=== PATIENT | female | born 1955 | race Caucasian/White ===

== ENCOUNTER 2023-05-22 09:46 | Outpatient (OUT) | payer MEDICARE, OTHER, SELFPAY ==
--- NOTE | 2023-05-22 09:55 | MM_ITS ---
Patient Name: JOHANNY CRISTINA MR#: [id number] : 1955 Exam Date: 05/22/2023 Ordering Doctor: DR SUKHJINDER QUINTERO . RADIOLOGY REPORT PROCEDURE: MM TOMOSYNTHESIS SCREENING BI COMPARISON: MG MAMM SCREEN 3D NÉSTOR CAD, 05/17/2021. MG MAMM SCREEN 3D NÉSTOR CAD, 05/21/2022. INDICATIONS: screening Calculator Name NCI Breast Cancer Risk Assessment Tool 5 Year Breast Cancer Risk 1.20% Lifetime Breast Cancer Risk 3.90% Personal Breast Cancer No Personal Ovarian Cancer No Treatments None Family Cancers Uncle-paternal with stomach cancer at age 74; Uncle-paternal with thyroid cancer at age 78; Grandfather-paternal with thyroid cancer at age 71; Uncle-maternal with leukemia cancer at age 65. LOCATION: [facility] BREAST COMPOSITION: Scattered areas fibroglandular density. FINDINGS: DIAGNOSTIC CATEGORY 1--NEGATIVE. NO CHANGE FROM COMPARISON ASSESSMENT. Scattered benign-appearing calcifications are present. RIGHT BREAST: No significant suspicious finding. LEFT BREAST: No significant suspicious finding. RECOMMENDATIONS: ROUTINE MAMMOGRAM AND CLINICAL EVALUATION IN 12 MONTHS. PLEASE NOTE: A NORMAL MAMMOGRAM DOES NOT EXCLUDE THE POSSIBILITY OF BREAST CANCER. A CLINICALLY SUSPICIOUS PALPABLE LUMP SHOULD BE BIOPSIED. Dictated by: Rommel Tay MD on 05/22/2023 at 11:09 Approved by: Rommel Tay MD on 05/22/2023 at 11:12
== END 2023-05-22 09:47 | disposition home or self-care (01) ==
LOC: MAMMO 09:46
PROVIDERS: PCP Family Medicine; Visit Provider Family Medicine
DX: Z12.31 Encounter for screening mammogram for malignant neoplasm of breast (principal); Z80.0 Family history of malignant neoplasm of digestive organs; Z80.8 Family history of malignant neoplasm of other organs or systems; Z80.6 Family history of leukemia
CPT/HCPCS: 77063; 77067

== ENCOUNTER 2023-05-31 06:15 | Outpatient (OUT) | payer MEDICARE, OTHER, SELFPAY ==
--- OUTSIDE RECORDS SUMMARY | 2023-05-31 06:20 | XMS_ITS | CCD ---
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 Wrecking Mechanic Name Role Phone PHYSICIAN, DEFAULT Unavailable Unavailable PHYSICIAN, DEFAULT Unavailable Unavailable SUKHJINDER QUINTERO Unavailable Unavailable HOY ., DR SLAUGHTER Admitting Unavailable HOY ., DR SLAUGHTER Attending Unavailable HOY ., DR SLAUGHTER Primary Care Unavailable HOY ., DR SLAUGHTER Consulting Unavailable WEST, DR STANISLAW Soria Consulting Unavailable HOY ., DR SLAUGHTER Admitting Unavailable HOY ., DR SLAUGHTER Attending Unavailable HOY ., DR SLAUGHTER Primary Care Unavailable HOY ., DR SLAUGHTER Consulting Unavailable WEST, DR STANISLAW Soria Consulting Unavailable HOY ., DR SLAUGHTER Primary Care Unavailable HOY ., DR SLAUGHTER Admitting Unavailable HOY ., DR SLAUGHTER Attending Unavailable HOY ., DR SLAUGHTER Consulting Unavailable ELTAHAWY, EHAB Attending Unavailable [place]HAWKhai, EHAB Attending Unavailable Allergies Allergy Classification Reported Allergen(s) Allergy Type Date of Onset Reaction(s) Facility (2 sources) Vigabatrin Drug Allergy 0 [facility] Repository (1 source) atorvastatin; Translations: [ATORVASTATIN] Drug Allergy 6 [facility] Rep[facility] (1 source) Metoprolol; Translations: [METOPROLOL] Drug Allergy 6 [facility] Rep[facility] (1 source) BUTALBITAL-ASPIR IN-CAFFEINE; Translations: [BUTALBITAL-ASPI RIN-CAFFEINE] Propensity to adverse reactions to drug (disorder) 2 [facility] Repository (1 source) CODEINE-BUTALBIT AL-ASA-CAFF; Translations: [CODEINE-BUTALBI VRV-QIN-TUUT] Propensity to adverse reactions to drug (disorder) 5 [facility] Problems Active Problems Problem Classification Problem Date Documented Date Episodic/Chronic Coronary atherosclerosis and other heart disease (2 sources) Atherosclerotic heart disease of red devil coronary artery without angina pectoris; Translations: [Atherosclerotic heart disease of red devil coronary artery without angina pectoris] Onset: 12-25-2022 Chronic Disorders of lipid metabolism (4 sources) Hyperlipidemia, unspecified; Translations: [HYPERLIPIDEMIA UNSPECIFIED] Onset: 02-12-2022 Chronic Essential hypertension (2 sources) Essential (primary) hypertension; Translations: [Essential (primary) hypertension] Onset: 02-08-2022 Chronic Menopausal disorders (4 sources) Other primary ovarian failure; Translations: [OTHER PRIMARY OVARIAN FAILURE] Onset: 02-22-2022 Chronic Nutritional deficiencies (1 source) Vitamin D deficiency, unspecified; Translations: [VITAMIN D DEFICIENCY UNSPECIFIED] Onset: 02-19-2022 Chronic Other bone disease and musculoskeletal deformities (1 source) Other specified disorders of bone density and structure, unspecified site; Translations: [OT D/O BONE DEN STRUCT UNS SITE] Onset: 02-28-2022 Episodic Other nutritional; endocrine; and metabolic disorders (1 source) Obesity, unspecified; Translations: [OBESITY UNSPECIFIED] Onset: 02-19-2022 Chronic Other screening for suspected conditions (not mental disorders or infectious disease) (5 sources) Encounter for screening mammogram for malignant neoplasm of breast; Translations: [Encounter for screening for malignant neoplasm of colon] Onset: 02-19-2022 Episodic Residual codes; unclassified (1 source) Family history of malignant neoplasm of digestive organs; Translations: [FAM HX MALIG NEOPLASM DIGESTIV ORGN] Onset: 05-26-2022 Episodic Residual codes; unclassified (1 source) Family history of leukemia; Translations: [FAMILY HISTORY OF LEUKEMIA] Onset: 05-26-2022 Episodic Residual codes; unclassified (1 source) Family history of malignant neoplasm of other organs or systems; Translations: [FAM HX MALIG NEOPLASM OTH ORGN/SYS] Onset: 05-26-2022 Episodic Past or Other Problems Problem Classification Problem Date Documented Da te Episodic/Chronic Deficiency and other anemia (1 source) Iron deficiency anemia, unspecified; Translations: [IRON DEFICIENCY ANEMIA UNSPECIFIED] Onset: 02-19-2022 Episodic Diabetes mellitus without complication (1 source) Other abnormal glucose; Translations: [OTHER ABNORMAL GLUCOSE] Onset: 02-19-2022 Episodic Other aftercare (1 source) 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; Translations: [OTH SKILLED NURSING CURRENT DRUG THERAPY] Onset: 02-19-2022 Episodic Results Test Name Value Interpretation Reference Range Facility Office Visiton 12-25-2022 Follow-up visit [id number] Johanny Dalton 1955 F Date Provider Department Center 12/25/2022 Kimberli-ZAC KNIGHT [facility] Family History Problem Relation Age of Onset Stroke Mother Other Mother Aortic aneurysm Father Hyperlipidemia Brother Aortic aneurysm Brother Family Status - Relation Status Age at Mother Father Brother Level of Service:78898 ID OFFICE/OUTPATIENT ESTABLISHED LOW MDM 20-29 MIN Normal [facility] MG MAMM SCREEN 3D NÉSTOR CADon 05-21-2022 MG MAMM SCREEN 3D NÉSTOR CAD Patient: JOHANNY DALTON Exam Date: 05/21/2022 : 1955 Gender:F Ordering : DR SUKHJINDER QUINTERO . Admission #: [id number] Family : Order #: [id number] CLICK HERE TO VIEW EXAM RADIOLOGY REPORT PROCEDURE: MAMMOGRAM SCREENING 3D BILATERAL CAD COMPARISON: MG MAMM SCREEN NÉSTOR W CAD, 05/16/2020. MG MAMM SCREEN 3D NÉSTOR CAD, 05/17/2021. INDICATIONS: Screening mammography Calculator Name NCI Breast Cancer Risk Assessment Tool 5 Year Breast Cancer Risk 1.20% Lifetime Breast Cancer Risk 4.00% Personal Breast Cancer No Personal Ovarian Cancer No Treatments None Family Cancers Uncle-paternal with stomach cancer at age 74; Uncle-paternal with thyroid cancer at age 78; Grandfather-paternal with thyroid cancer at age 71; Uncle-maternal with leukemia cancer at age 65. LOCATION: [facility] BREAST COMPOSITION: Scattered areas fibroglandular density. FINDINGS: DIAGNOSTIC CATEGORY 1--NEGATIVE. NO CHANGE FROM COMPARISON ASSESSMENT. Scattered benign-appearing calcifications are present. RIGHT BREAST: No significant suspicious finding. LEFT BREAST: No significant suspicious finding. RECOMMENDATIONS: ROUTINE MAMMOGRAM AND CLINICAL EVALUATION IN 12 MONTHS. PLEASE NOTE: A NORMAL MAMMOGRAM DOES NOT EXCLUDE THE POSSIBILITY OF BREAST CANCER. A CLINICALLY SUSPICIOUS PALPABLE LUMP SHOULD BE BIOPSIED. Dictated by: Stanislaw Gonzalez MD on 05/21/2022 at 11:30 Approved by: Stanislaw Gonzalez MD on 05/21/2022 at 11:36 Normal [facility] XR DEXA BONE DENSITYon 02-22 XR DEXA BONE DENSITY EXAMINATION: XR DEX A BONE DENSITY, 02/22/2022 9:59 AM EST HISTORY: Primary ovarian failure COMPARISON: None. TECHNIQUE: Dual-energy X-ray absorptiometry (DEXA) bone density study performed for the axial skeleton. FINDINGS: Bone mineral density AP spine L2-L4 measures 0.993 g/sq cm. T score -1.7. WHO classification: Osteopenia Bone mineral density of the right femoral neck measures 0.82 g/sq cm. T score -1.6. WHO classification: Osteopenia IMPRESSION: Osteopenia. Moderate fracture risk Electronically authenticated by: STANISLAW GONZALEZ Date: 2022-02-22 10:20 Normal [facility] INSULINon 02-13-2022 Insulin 10.7 uIU/mL Normal 2.6-24.9 [facility] Comment on above: Performed By: #### I NSULIN ####[facility] [id number] [place] [address]Dr. Lindsay Varela BILIRUBIN CONJUGATED (DIRECT )on 02-12-2022 BILI, CONJUGATED 0.1 mg/dL Normal 0.0-0.2 [facility] Comment on above: Performed By: #### T SH, CMP, T4, FT3, DBIL, LIPID ####[facility] [id number] [place] [address]Dr. Lindsay Varela CBC AUTO DIFFon 02-12-2022 BASO # 0.0 103/ul Normal 0.0-0.1 [facility] Comment on above: Performed By: #### C BC #### [facility] [address] [address] [address] Lindsay Varela Basophils/100 WBC (Bld) 0.4 % Normal 0.2-2.0 [facility] Comment on above: Performed By: #### C BC #### [facility] [address] [place] [address] Dr. Lindsay Varela EO # 0.1 103/ul Normal 0.0-0.7 [facility] Comment on above: Performed By: #### C BC #### [facility] [address] [place] [address] Dr. Lindsay Varela Eosinophils/100 WBC (Bld) 2.3 % Normal 0.9-7.0 [facility] Comment on above: Performed By: #### C BC #### [facility] [address] [place] [address] Dr. Lindsay Varela Erythrocyte distribution width (RBC) [Ratio] 12.2 % Normal 11.0-15.0 [facility] Comment on above: Performed By: #### C BC #### [facility] [address] [place] [address] Dr. Lindsay Varela Hematocrit (Bld) [Volume fraction] 41.9 % Normal 36.0-48.0 [facility] Comment on above: Performed By: #### C BC #### [facility] [address] [place] [address] Dr. Lindsay Varela Hemoglobin (Bld) [Mass/Vol] 13.9 g/dL Normal 12.0-16.0 [facility] Comment on above: Performed By: #### C BC #### [facility] [address] [place] [address] Dr. Lindsay Varela IG # 0.01 10e3/ul Normal 0.00-0.03 [facility] Comment on above: Performed By: #### C BC #### [facility] [address] [place] [address] Dr. Lindsay Varela IG % 0.2 % Normal 0.0-0.5 [facility] Comment on above: Performed By: #### C BC #### [facility] [address] [place] [address] Dr. Lindsay Varela LYMPH # 1.4 103/ul Normal 1.2-3.8 [facility] Comment on above: Performed By: #### C BC #### [facility] [address] [place] [address] Dr. Lindsay Varela Lymphocytes/100 WBC (Bld) 29.2 % Normal 20.5-60.0 [facility] Comment on above: Performed By: #### C BC #### [facility] [address] [place] [address] Dr. Lindsay Varela MANUAL DIFF REQ NO Normal [facility] Comment on above: Performed By: #### C BC #### [facility] [address] [place] [address] Dr. Lindsay Varela MCH (RBC) [Entitic mass] 29.4 pg Normal 26.7-34.0 [facility] Comment on above: Performed By: #### C BC #### [facility] [address] [place] [address] Dr. Lindsay Varela MCHC (RBC) [Mass/Vol] 33.2 g/dL Normal 29.9-35.2 [facility] Comment on above: Performed By: #### C BC #### [facility] [address] [place] [address] Dr. Lindsay Varela MCV (RBC) [Entitic vol] 88.6 fL Normal 81.0-99.0 [facility] Comment on above: Performed By: #### C BC #### [facility] [address] [place] [address] Dr. Lindsay Varela MONO # 0.5 103/ul Normal 0.3-0.8 [facility] Comment on above: Performed By: #### C BC #### [facility] [address] [place] [address] Dr. Lindsay Varela Monocytes/100 WBC (Bld) 9.5 % Normal 1.7-12.0 [facility] Comment on above: Performed By: #### C BC #### [facility] [address] [place] [address] Dr. Lindsay Varela NEUT # 2.8 103/ul Normal 1.4-6.5 [facility] Comment on above: Performed By: #### C BC #### [facility] [address] [place] [address] Dr. Lindsay Varela Neutrophils/100 WBC (Bld) 58.4 % Normal 43.0-75.0 [facility] Comment on above: Performed By: #### C BC #### [facility] [address] [place] [address] Dr. Lindsay Varela Platelet mean volume (Bld) [Entitic vol] 9.7 fL Normal 9.5-13.5 [facility] Comment on above: Performed By: #### C BC #### [facility] [address] [address] [address] Lindsay Varela PLT 181 103/ul Normal 150-450 [facility] Comment on above: Performed By: #### C BC #### [facility] [address] [address] [address] Lindsay Varela RBC 4.73 106/ul Normal 4.20-5.40 [facility] Comment on above: Performed By: #### C BC #### [facility] [address] [address] [address] Lindsay Varela WBC 4.8 103/ul Normal 4.0-11.0 [facility] Comment on above: Performed By: #### C BC #### [facility] [address] [address] [address] Lindsay Varela FREE T3on 02-12-2022 FREE T3 2.78 pg/mlL Normal 2.18-3.98 [facility] Comment on above: Performed By: #### T SH, CMP, T4, FT3, DBIL, LIPID #### [facility] [address] [address] [address] Lindsay Varela GLYCOHEMOGLOBIN A1Con 2021 ADA RECOMMENDATION SEE BELOW Normal [facility] Comment on above: Result Comment: ADA RECOMMENDED LIMIT 4.0 - 6.0 ADA THERAPEUTIC TARGET < 7.0 ACTION SUGGESTED > 7.0 Performed By: #### A 1C ####[facility] [id number] [place] [address]Dr. Lindsay Varela Glucose [Mass/Vol] 105 mg/dL Normal [facility] Comment on above: Performed By: #### A 1C ####[facility] [id number] [place] [id number]. Lindsay Varela HbA1c (Bld) [Mass fraction] 5.3 % Normal 4.5-6.2 [facility] Comment on above: Performed By: #### A 1C ####[facility] [address] [place], [place] [address]IfDr. Lindsay Varela IRONon 02-12-2022 Iron [Mass/Vol] 71.0 ug/dL Normal 50.0-170.0 [facility] Comment on above: Performed By: #### V ITAD, IRON #### [facility] [address] [address] [address] Lindsay Varela LIPID PROFILEon 02-12-2022 CHOL-HDL RATIO NORM SEE BELOW Normal [facility] Comment on above: Result Comment: 3.3 - 4.4 LOW RISK 4.4 - 7.1 AVERAGE RISK 7.1 - 11.0 MODERATE RISK >11.0 HIGH RISK Performed By: #### T SH, CMP, T4, FT3, DBIL, LIPID #### [facility] [address] [place] [address] Dr. Lindsay Varela Cholesterol [Mass/Vol] 141 mg/dL Normal <=200 [facility] Comment on above: Performed By: #### T SH, CMP, T4, FT3, DBIL, LIPID #### [facility] [address] [address] [address] Lindsay Varela Cholesterol in HDL [Mass/Vol] 44 mg/dL Normal 40-60 [facility] Comment on above: Performed By: #### T SH, CMP, T4, FT3, DBIL, LIPID #### [facility] [address] [address] [address] Lindsay Varela Cholesterol in LDL [Mass/Vol] 77.0 mg/dL Normal [facility] Comment on above: Performed By: #### T SH, CMP, T4, FT3, DBIL, LIPID #### [facility] [address] [address] [address] Lindsay Varela Cholesterol.total/Cho lesterol in HDL [Mass ratio] 3.2 {ratio} Normal [facility] Comment on above: Performed By: #### T SH, CMP, T4, FT3, DBIL, LIPID #### [facility] [address] [place] [address] Dr. Lindsay Varela HDL NORMAL > or = 60 mg/dl - LOW CARDIOVASCULAR RISK <40 mg/dl - HIGH CARDIOVASCULAR RISK Normal [facility] Comment on above: Performed By: #### T SH, CMP, T4, FT3, DBIL, LIPID #### [facility] [address] [address] [address] Lindsay Varela LDL CALC NORMAL SEE BELOW Normal [facility] Comment on above: Result Comment: <100 mg/dl OPTIMAL 100 - 129 mg/dl NEAR OR ABOVE OPTIMAL 130 - 159 mg/dl BORDERLINE HIGH 160 - 189 mg/dl HIGH >190 mg/dl VERY HIGH Performed By: #### T SH, CMP, T4, FT3, DBIL, LIPID #### [facility] [address] [place] [address] Dr. Lindsay Varela Triglyceride [Mass/Vol] 100 mg/dL Normal <=150 [facility] Comment on above: Performed By: #### T SH, CMP, T4, FT3, DBIL, LIPID #### [facility] [address] [address] [address] Lindsay Varela VLDL CALC 20.0 mg/dL Normal [facility] Comment on above: Performed By: #### T SH, CMP, T4, FT3, DBIL, LIPID #### [facility] [address] [place] [address] Dr. Lindsay Varela PROF 14(COMP METB)on 022 Albumin [Mass/Vol] 3.8 g/dL Normal 3.4-5.0 [facility] Comment on above: Performed By: #### T SH, CMP, T4, FT3, DBIL, LIPID #### [facility] [address] [place] [address] Dr. Lindsay Varela Albumin/Globulin [Mass ratio] 1.1 {ratio} Normal [facility] Comment on above: Performed By: #### T SH, CMP, T4, FT3, DBIL, LIPID #### [facility] [address] [place] [address] Dr. Lindsay Varela ALP [Catalytic activity/Vol] 107 U/L Normal 46-116 [facility] Comment on above: Performed By: #### T SH, CMP, T4, FT3, DBIL, LIPID #### [facility] [address] [place] [address] Dr. Lindsay Varela ALT [Catalytic activity/Vol] 19 U/L Normal 14-59 [facility] Comment on above: Performed By: #### T SH, CMP, T4, FT3, DBIL, LIPID #### [facility] [address] [place] [address] Dr. Lindsay Varela Anion gap [Moles/Vol] 10.5 mmol/L Normal [facility] Comment on above: Performed By: #### T SH, CMP, T4, FT3, DBIL, LIPID #### [facility] [address] [place] [address] Dr. Lindsay Varela AST [Catalytic activity/Vol] 16 U/L Normal 15-37 [facility] Comment on above: Performed By: #### T SH, CMP, T4, FT3, DBIL, LIPID #### [facility] [address] [place] [address] Dr. Lindsay Varela Bilirubin [Mass/Vol] 0.5 mg/dL Normal 0.2-1.0 [facility] Comment on above: Performed By: #### T SH, CMP, T4, FT3, DBIL, LIPID #### [facility] [address] [place] [address] Dr. Lindsay Varela Calcium [Mass/Vol] 9.2 mg/dL Normal 8.5-10.1 [facility] Comment on above: Performed By: #### T SH, CMP, T4, FT3, DBIL, LIPID #### [facility] [address] [place] [address] Dr. Lindsay Varela Chloride [Moles/Vol] 102 mmol/L Normal 98-107 [facility] Comment on above: Performed By: #### T SH, CMP, T4, FT3, DBIL, LIPID #### [facility] [address] [place] [address] Dr. Lindsay Varela CO2 [Moles/Vol] 29.9 mmol/L Normal 21.0-32.0 [facility] Comment on above: Performed By: #### T SH, CMP, T4, FT3, DBIL, LIPID #### [facility] [address] [place] [address] Dr. Lindsay Varela Creatinine [Mass/Vol] 0.92 mg/dL Normal 0.55-1.02 [facility] Comment on above: Performed By: #### T SH, CMP, T4, FT3, DBIL, LIPID #### [facility] [address] [place] [address] Dr. Lindsay Varela EGFR-AF BELIZEAN >60 Normal >=60 [facility] Comment on above: Performed By: #### T SH, CMP, T4, FT3, DBIL, LIPID #### [facility] [address] [place] [address] Dr. Lindsay Varela EGFR-NON AF BELIZEAN >60 Normal >=60 [facility] Comment on above: Performed By: #### T SH, CMP, T4, FT3, DBIL, LIPID #### [facility] [address] [place] [address] Dr. Lindsay Varela Globulin (S) [Mass/Vol] 3.6 g/dL Normal [facility] Comment on above: Performed By: #### T SH, CMP, T4, FT3, DBIL, LIPID #### [facility] [address] [place] [address] Dr. Lindsay Varela Glucose [Mass/Vol] 100 mg/dL Normal 74-106 [facility] Comment on above: Performed By: #### T SH, CMP, T4, FT3, DBIL, LIPID #### [facility] [address] [place] [address] Dr. Lindsay Varela Potassium [Moles/Vol] 4.4 mmol/L Normal 3.5-5.1 [facility] Comment on above: Performed By: #### T SH, CMP, T4, FT3, DBIL, LIPID #### [facility] [address] [place] [address] Dr. Lindsay Varela Protein [Mass/Vol] 7.4 g/dL Normal 6.4-8.2 [facility] Comment on above: Performed By: #### T SH, CMP, T4, FT3, DBIL, LIPID #### [facility] [address] [place] [address] Dr. Lindsay Varela Sodium [Moles/Vol] 138 mmol/L Normal 136-145 [facility] Comment on above: Performed By: #### T SH, CMP, T4, FT3, DBIL, LIPID #### [facility] [address] [place] [address] Dr. Lindsay Varela Urea nitrogen [Mass/Vol] 18.0 mg/dL Normal 7.0-18.0 [facility] Comment on above: Performed By: #### T SH, CMP, T4, FT3, DBIL, LIPID #### [facility] [address] [place] [address] Dr. Lindsay Varela Urea nitrogen/Creatinine [Mass ratio] 19.6 mg/mg Normal [facility] Comment on above: Performed By: #### T SH, CMP, T4, FT3, DBIL, LIPID #### [facility] [address] [place] [address] Dr. Lindsay Varela T4on 02-12-2022 T4 [Mass/Vol] 9.00 ug/dL Normal 4.80-13.90 [facility] Comment on above: Performed By: #### T SH, CMP, T4, FT3, DBIL, LIPID #### [facility] [address] [place] [address] Dr. Lindsay Varela TSHon 02-12-2022 TSH 2.036 uIU/mL Normal 0.358-3.740 [facility] Comment on above: Performed By: #### T SH, CMP, T4, FT3, DBIL, LIPID #### [facility] [address] [place] [address] Dr. Lindsay Varela VITAMIN D 25 OHon 02-12-2022 VIT D 25-OH 66.4 ng/mL Normal [facility] Comment on above: Performed By: #### V ITAD, IRON #### [facility] [address] [place] [address] Dr. Lindsay Varela VIT D RANGES SEE BELOW Normal [facility] Comment on above: Result Comment: <20 ng/mL Vit D deficient 20 - <30 ng/mL Vit D insufficient 30 - 100 ng/mL Vit D sufficient >100 ng/mL Potential Toxicity Performed By: #### V ITAD, IRON #### [facility] [address] [address] [address] Lindsay Varela Office Visiton 02-08-2022 Follow-up visit [id number] Johanny Dalton 1955 F Date Provider Department Center 02/08/2022 [facility], [facility] No family history on file Level of Service:[id number] ID OFFICE/OUTPATIENT ESTABLISHED LOW MDM 20-29 MIN Reason for Visit and Comments: Follow-up [406504] - 1 year Normal [facility] Encounters Encounter Date Encounter Type Care Provider Facility Start: 12-25-2022 End: 12-25-2022 ambulatory [facility] Start: 05-21-2022 End: 05-22-[address] SUKHJINDER QUINTERO . Facility:[facility] Start: 02-22-2022 End: 02-23-[address] SUKHJINDER QUINTERO . Facility:[facility] Start: 02-12-2022 End: 02-13-[address] SUKHJINDER QUINTERO . Facility:[facility] Start: 02-08-2022 End: 02-08-2022 ambulatory [facility] Start: 02-09-2018 End: 02-10-2018 Patient encounter procedure DEFAULT PHYSICIAN Facility:[facility] Payers Date Payer Category Payer Medicare [id number] 1961 Unknown [id number] 1955 Unknown [id number] 1955 Unknown [id number] 2.16.84 [id number] 1955 Unknown [id number] [id number] [id number] 1955 Unknown [id number] 2.16.84 [id number] Unknown Progress note 12-25-2022 Note Date & Type Note Facility 12-25-2022 Note [facility] Cardiology Clinic Note Chief Complaint: Patient here for 1 year follow up CAD, aortic valve regurgitation, and dyspnea. She denies chest pain, palpitations, and LE edema. Says her GOLDSTEIN remains unchanged from last year. No recent labs or testing. HPI: oJhanny Dalton is a 66 y.o. female with moderate coronary artery disease and mild aortic valve regurgitation here in routine follow-up Cardiology ROS: Review of Systems Cardiovascular: Positive for dyspnea on exertion. Hematologic/Lymphatic: Bruises/bleeds easily. All other systems reviewed and are negative. Past Medical History She has no past medical history on file. Surgical History She has no past surgical history on file. Social History She reports that she quit smoking about 23 years ago. Her smoking use included cigarettes. She has never used smokeless tobacco. She reports that she does not currently use alcohol. She reports that she does not use drugs. Family History No family history on file. Allergies Atorvastatin, Hokolzhvae-ykjvltc-uulismrx, Ovsfkov-zjzkvayrhd-ssc-caff, and Metoprolol Medications Current Outpatient Medications: ascorbic acid (Vitamin C) 100 mg tablet, Take 100 mg by mouth in the morning., Disp: , Rfl: aspirin 81 mg EC tablet, Take 1 tablet every day by oral route., Disp: , Rfl: buPROPion XL (Wellbutrin XL) 300 mg 24 hr tablet, Take 1 tablet by mouth in the morning., Disp: , Rfl: carvedilol (Coreg) 3.125 mg tablet, Take 1 tablet (3.125 mg) by mouth with breakfast and with evening meal., Disp: 180 tablet, Rfl: 3 cholecalciferol, vitamin D3, 50 mcg (2,000 unit) capsule, Take 1 capsule by mouth in the morning., Disp: , Rfl: FeroSuL 325 mg (65 mg iron) tablet, Take 1 tablet by mouth in the morning and at bedtime., Disp: , Rfl: rosuvastatin (Crestor) 10 mg tablet, Take 1 tablet (10 mg) by mouth at bedtime., Disp: 90 tablet, Rfl: 3 zinc sulfate (ZINC-15 ORAL), Take by mouth., Disp: , Rfl: Last Recorded Vitals BP 107/75 (BP Location: Left arm, Patient Position: Sitting) Pulse 81 Ht 1.676 m (5' 6 ) Wt 94.3 kg (208 lb) SpO2 96% BMI 33.57 kg/m??? Physical Examination: GENERAL: alert and oriented x3, well developed, in no acute distress. HEAD: atraumatic, normocephalic. EYES: HAJA, EOMI. NECK: trachea midline, no JVD present, no carotid bruits present. CARDIAC: S1, S2 present. RRR. No murmur, rubs, or gallops. RESPIRATORY: CTAB, no increased effort of breathing, no rales, rhonchi, or wheezing. ABDOMEN: soft, nontender, nondistended. EXTREMITIES: no lower extremity edema, peripheral pulses are 2+ bilaterally. No rash/skin discoloration present. NEURO: strength/sensation equal and symmetric in bilateral upper and lower extremities. PSYCH: appropriate mood, affect, and judgement. Echo 02/09/18 Global left ventricular systolic function is normal (Visually estimated EF 60%). The left ventricle is normal size. Left ventricular wall thickness is normal. No regional wall motion abnormality. Normal diastolic function. Normal right ventricular systolic function. The right ventricle is normal in size. The left atrium is normal in size. Mild aortic valve regurgitation. Doppler studies suggest normal right sided pressures. Compared to the echocardiogram from 08/2016 all valvular regurgitation has lessened in severity. 07/28/15 CVL report FINAL IMPRESSIONS: 1. Moderate non-hemodynamically significant stenosis of the obtuse marginal branch of the left circumflex as assessed by fractional flow reserve. 2. Dsan-fd-jppemxzc disease of the left anterior descending and right coronary arteries. 3. Mildly elevated right-sided heart pressures and wedge pressure. 4. Normal cardiac output/cardiac index. 5. Normal global left ventricular systolic function by noninvasive imaging. Reviewed labs from 08/2020, overall unremarkable Echocardiogram 01/10/2021: Global left ventricular systolic function is normal; visually estimated ejection fraction is 60 to 65%. Abnormal septal motion likely related to bundle branch block. Normal diastolic function. Right ventricle is normal in size and systolic function. No significant valvular abnormalities. Labs 01/2022: Cholesterol 141, HDL 44, triglycerides 100, LDL 77 Assessment: 1. Aortic valve regurgitation - Mild per 2018 ECHO trivial 2020 2. Coronary arteriosclerosis - Moderate per 2016 cath -obtuse marginal branch of the left circumflex. 3. Dyspnea - Stable Plan: Continue optimal medical therapy for coronary artery disease including aspirin, moderate to high intensity statin therapy, a beta-tiffanie. We will consider repeating an echocardiogram in the next 1 to 2 years or sooner should she have any symptoms. Return to clinic in 1 year or sooner should problems arise Zac Knight MD, MPH, [facility], [facility], [facility] Interventional Cardiology Pager Email: [email or web address] Progress note 02-08-2022 Note Date & Type Note Facility 02-08-2022 Note [facility] Cardiology Clinic Note Chief Complaint: 1 year follow up HPI: Johanny Dalton is a 66 y.o. female with moderate coronary artery disease and mild aortic valve regurgitation here in routine follow-up She is doing well and has no cardiovascular symptoms or concerns Cardiology ROS: GENERAL: Denies fever, chills, night sweats, weight loss. HEENT: Denies changes in vision, photophobia, changes in hearing, epistaxis, oral bleeding. CARDIOVASCULAR: Denies chest pain, exertional dyspnea, orthopnea/PND, lower extremity edema, palpitations, lightheadedness/dizziness. RESPIRATORY: Denies SOB, coughing, wheezing GI: Denies abdominal pain, nausea/vomiting, heartburn, melena/hematochezia. RENAL: Denies dysuria, hematuria, flank pain. MSK: Denies muscle weakness/pain, arthralgias/joint pain. NEUROLOGIC: Denies LOC, weakness, numbness, headaches. SKIN: Denies abnormal rashes or bleeding. PSYCH: Denies significant anxiety, depression, sleep disturbances. Last Recorded Vitals BP 120/78 (BP Location: Left arm, Patient Position: Sitting) Pulse 72 Ht 1.676 m (5' 6 ) Wt 94.8 kg (209 lb) SpO2 96% BMI 33.73 kg/m??? Physical Examination: GENERAL: alert and oriented x3, well developed, in no acute distress. HEAD: atraumatic, normocephalic. EYES: HAJA, EOMI. NECK: trachea midline, no JVD present, no carotid bruits present. CARDIAC: S1, S2 present. RRR. No murmur, rubs, or gallops. RESPIRATORY: CTAB, no increased effort of breathing, no rales, rhonchi, or wheezing. ABDOMEN: soft, nontender, nondistended. EXTREMITIES: no lower extremity edema, peripheral pulses are 2+ bilaterally. No rash/skin discoloration present. NEURO: strength/sensation equal and symmetric in bilateral upper and lower extremities. PSYCH: appropriate mood, affect, and judgement. Investigations: ------ ------- Echo 02/09/18 Global left ventricular systolic function is normal (Visually estimated EF 60%). The left ventricle is normal size. Left ventricular wall thickness is normal. No regional wall motion abnormality. Normal diastolic function. Normal right ventricular systolic function. The right ventricle is normal in size. The left atrium is normal in size. Mild aortic valve regurgitation. Doppler studies suggest normal right sided pressures. Compared to the echocardiogram from 08/2016 all valvular regurgitation has lessened in severity. 07/28/15 CVL report FINAL IMPRESSIONS: 1. Moderate non-hemodynamically significant stenosis of the obtuse marginal branch of the left circumflex as assessed by fractional flow reserve. 2. Oyoj-mm-wlrsmltw disease of the left anterior descending and right coronary arteries. 3. Mildly elevated right-sided heart pressures and wedge pressure. 4. Normal cardiac output/cardiac index. 5. Normal global left ventricular systolic function by noninvasive imaging. Reviewed labs from 08/2020, overall unremarkable Echocardiogram 01/10/2021: Global left ventricular systolic function is normal; visually estimated ejection fraction is 60 to 65%. Abnormal septal motion likely related to bundle branch block. Normal diastolic function. Right ventricle is normal in size and systolic function. No significant valvular abnormalities. Assessment: 1. Aortic valve regurgitation - Mild per 2018 ECHO trivial 2020 2. Coronary arteriosclerosis - Moderate per 2016 cath -obtuse marginal branch of the left circumflex. 3. Dyspnea - Stable Plan: Continue optimal medical therapy for coronary artery disease including aspirin, moderate to high intensity statin therapy, a beta-tiffanie. She is currently only on 10 mg of Crestor; consider increasing to 20 or 40 depending on her lipid profile. Return to clinic in 1 year or sooner should problems arise Zac Knight MD, MPH, [facility], [facility] Interventional Cardiology Pager Email: [email or web address] Summary Purpose Family History No Family History Records FoundNo Family History Records FoundNo Family History Records Found Advance Directives No Advanced Directives Records FoundNo Advanced Directives Records FoundNo Advanced Directives Records Found Additional Source Comments INFORMATION SOURCE (unrecogn ized section and content) DATE CREATED AUTHOR 03/02/2018 [facility] DATE CREATED AUTHOR AUTHOR'S ORGANIZ ATION 05/28/2022 [facility] DATE CREATED AUTHOR AUTHOR'S ORGANIZ ATION 12/29/2022 [facility] FOR RECORDS PERTAINING TO PATIENTS WHO ARE OR HAVE BEEN ENROLLED IN A CHEMICAL DEPENDENCY/SUBSTANCEABUSE PROGRAM, SOME INFORMATION MAY BE OMITTED. This clinical summary was aggregated from multiple sources. Caution should be exercised in using it in the provision of clinical care. This summary normalizes information from multiple sources, and as a consequence, information in this document may materially change the coding, format and clinical context of patient data. In addition, data may be omitted in some cases. CLINICAL DECISIONS SHOULD BE BASED ON THE PRIMARY CLINICAL RECORDS. [employer] [facility]. provides no warranty or guarantee of the accuracy or completeness of information in this document.
[2023-05-31 07:00] LABS: Basophils Percent Auto 0.5 % (0.2-2.0); Eosinophils Absolute Auto 0.2 10^3/uL (0.0-0.7); Hematocrit 41.5 % (36.0-48.0); Hemoglobin 13.6 g/dL (12.0-16.0); Immature Granulocytes Abs Auto 0.01 10^3/uL (0.00-0.03); Immature Granulocytes Pct Auto 0.2 % (0.0-0.5); Lymphocytes Absolute Auto 1.2 10^3/uL (1.2-3.8); Lymphocytes Percent Auto 20.1 % (20.5-60.0); Mean Corpuscular HGB Conc 32.8 g/dL (29.9-35.2); Mean Corpuscular Hemoglobin 29.3 pg (26.7-34.0); Mean Corpuscular Volume 89.4 fL (81.0-99.0); Mean Platelet Volume 9.6 fL (9.5-13.5); Monocytes Absolute Auto 0.4 10^3/uL (0.3-0.8); Monocytes Percent Auto 7.4 % (1.7-12.0); Neutrophils Percent Auto 67.8 % (43.0-75.0); Platelet Count 161 10^3/uL (150-450); Red Blood Count 4.64 10^6/uL (4.20-5.40)
[2023-05-31 07:16] LABS: Estimated Average Glucose 120 mg/dL; Glycohemoglobin A1C 5.8 % (4.5-6.2)
[2023-05-31 07:27] LABS: Alanine Aminotransferase 19 U/L (14-59); Albumin Level 3.5 g/dL (3.4-5.0); Alkaline Phosphatase 112 U/L (46-116); Anion Gap 13.3; Aspartate Amino Transferase 14 U/L (15-37); Bilirubin Total 0.6 mg/dL (0.2-1.0); Calcium 8.8 mg/dL (8.5-10.1); Carbon Dioxide 28.1 mmol/L (21.0-32.0); Chloride 102 mmol/L (98-107); Chol HDL Ratio 3.5; Cholesterol 156 mg/dL (<=200); Estimated GFR (African America >60 (>=60); Estimated GFR (Non-African Ame 55 (>=60); Globulin 3.6 g/dL; Glucose 116 mg/dL (74-106); HDL Cholesterol 45 mg/dL (40-60); LDL Cholesterol Calculated 90.4 mg/dL; Potassium 4.4 mmol/L (3.5-5.1); Sodium 139 mmol/L (136-145); Thyroid Stimulating Hormone 3.069 uIU/mL (0.358-3.740); Total Protein 7.1 g/dL (6.4-8.2); Triglycerides 103 mg/dL (<=150); VLDL CHOLESTEROL 20.6 mg/dL
[2023-05-31 08:28] LABS: Free T4 0.92 ng/dL (0.76-1.46)
== END 2023-05-31 06:16 | disposition home or self-care (01) ==
LOC: LAB 06:18
PROVIDERS: PCP Family Medicine; Visit Provider Family Medicine
DX: R53.83 Other fatigue (principal); Z79.899 Other long term (current) drug therapy; E78.5 Hyperlipidemia, unspecified; R73.09 Other abnormal glucose
CPT/HCPCS: 36415; 80053; 80061; 83036; 84439; 84443; 85025

== ENCOUNTER 2024-03-18 08:30 | Outpatient (OUT) | payer MEDICARE, OTHER, SELFPAY ==
--- NOTE | 2024-03-18 08:32 | CT_ITS ---
[address] [address] Patient Name: JOHANNY CRISTINA MRN: [id number] date: 1955 Sex: F Assigned Patient Location: CT Current Patient Location: Accession/Order Number: [id number] Exam Date: 03/18/2024 08:49 Report Date: 03/19/2024 09:53 At the request of: SUKHJINDER QUINTERO Procedure: CT lung screening low-dose EXAMINATION: CT lung screening low-dose HISTORY: Former Smoker COMPARISON: CT chest 09/01/2018 TECHNIQUE: Axial, Coronal, and Sagittal images were created without the administration of IV contrast material. Dose reduction techniques were achieved by using automated exposure control and/or adjustment of mA and/or kV according to patient size and/or use of iterative reconstruction technique. FINDINGS: LUNGS: Mild-moderate emphysematous changes. No suspicious nodules. PLEURA: No mass, effusion, or pneumothorax. VASCULATURE: No abnormality. BOOGIE: No mass or pathologic adenopathy. MEDIASTINUM: Stable, chronic 1.6 cm nodule within upper anterior mediastinum; nonspecific. CARDIAC: No enlargement, pericardial thickening, or pericardial effusion. Coronary Artery calcifications: AORTA: No aneurysm or dissection. CHEST WALL: No mass or axillary adenopathy BONES: No bone lesion or fracture. LIMITED ABDOMEN: No suspicious findings. Limited images of the upper abdomen. OTHER: Negative. CT/CT lung screening low-dose IMPRESSION: 1. Lung-RADS Category 1 Negative. No nodules and definitely benign nodules. Continue annual screening with LDCT in 12 months. Electronically authenticated by: KATHARINA BARRY Date: 03/19/2024 09:53
--- NOTE | 2024-03-18 08:33 | XR_ITS ---
[address] [address] Patient Name: JOHANNY CRISTINA MRN: [id number] date: 1955 Sex: F Assigned Patient Location: CT Current Patient Location: CT Accession/Order Number: [id number] Exam Date: 03/18/2024 08:55 Report Date: 03/18/2024 14:28 At the request of: SUKHJINDER QUINTERO Procedure: XR DEXA axial skeleton EXAMINATION: XR DEXA axial skeleton HISTORY: Age Related Osteoporosis COMPARISON: DEXA bone densitometry 02/22/2022 TECHNIQUE: Dual-energy X-ray absorptiometry (DXA) was performed. FINDINGS: SPINE ANALYSIS: Average bone mineral density is 1.014 g/cm2. T-score (standard deviation relative to young adult mean): -1.5 . Not previously evaluated. HIP ANALYSIS: Lowest bone mineral density is within the right femoral neck, 0.799 g/cm2. T-score (standard deviation relative to young adult mean): -1.7 . -2.8% change since prior study. XR/XR DEXA axial skeleton IMPRESSION: World Health Organization Classification: Osteopenia - Moderate Fracture Risk FRAX: Cannot calculate. Pharmacologic treatment recommendations * No uniform recommendation applies to all patients. Management plans must be individualized. * Consider initiating pharmacologic treatment in postmenopausal women and men >= 50 years of age who have the following: Primary fracture prevention: * T-score <= - 2.5 at the femoral neck, total hip, lumbar spine, 33% radius (some uncertainty with existing data) by DXA. * Low bone mass (osteopenia: T-score between - 1.0 and - 2.5) at the femoral neck or total hip by DXA with a 10-year hip fracture risk >= 3% or a 10-year major osteoporosis-related fracture risk >= 20% (i.e., clinical vertebral, hip, forearm, or proximal humerus) based on the [place]-adapted FRAXregistered model. Secondary fracture prevention: * Fracture of the hip or vertebra regardless of BMD [4, 5]. * Fracture of proximal humerus, pelvis, or distal forearm in persons with low bone mass (osteopenia: T-score between - 1.0 and - 2.5). The decision to treat should be individualized in persons with a fracture of the proximal humerus, pelvis, or distal forearm who do not have osteopenia or low BMD [12, 13]. Daphne MS, Aamir SL, Rosalva KL, Eduardo EM, Dorie KG, AJ, Masha ES. The clinician's guide to prevention and treatment of osteoporosis. Osteoporos Int. 2021;33(10):6241-6094. doi: 10.1007/s00029-485-56752-y. Epub 2021Jul 19. Erratum in: Osteoporos Int. 2021Oct 18;: PMID: [id number]; PMCID: [id number]. Electronically authenticated by: KATHARINA BARRY Date: 03/18/2024 14:28
--- OUTSIDE RECORDS SUMMARY | 2024-03-18 08:34 | XMS_ITS | CCD ---
Author Organization [facility] CliniSyms Care Team Providers Care [employer] Retailer Name Role Phone PHYSICIAN, DEFAULT Unavailable Unavailable [...] SLAUGHTER Consulting Unavailable [place], EHAB Attending Unavailable [place], EHAB Attending Unavailable Allergies Allergy Classification Reported Allergen(s) Allergy Type Date of Onset Reaction(s) Facility (2 sources) Vigabatrin Drug Allergy 0 [facility] Repository (1 source) atorvastatin; Translations: [ATORVASTATIN] Drug Allergy 6 [facility] Repository (1 source) Metoprolol; Translations: [METOPROLOL] Drug Allergy 6 [facility] Repository (1 source) BUTALBITAL-ASPIR IN-CAFFEINE; Translations: [BUTALBITAL-ASPI RIN-CAFFEINE] Propensity to adverse reactions to drug (disorder) 2 [facility] Repository (1 source) CODEINE-BUTALBIT AL-ASA-CAFF; Translations: [CODEINE-BUTALBI [id number]] Propensity to adverse reactions to drug (disorder) 5 [facility] Repository Problems Active Problems Problem Classification Problem Date Documented Date Episodic/Chronic Coronary atherosclerosis and other heart disease (2 sources) Atherosclerotic heart disease of [place] coronary artery without angina pectoris; Translations: [Atherosclerotic heart disease of [place]wi[place] coronary artery without angina pectoris] Onset: 12-25-2022 [...] bone density and structure, unspecified site; Translations: [OTH D/O BONE DEN STRUCT UNS SITE] Onset: [...] abnormal glucose; Translations: [OTHER ABNORMAL GLUCOSE] Onset: 11-29-2022 Episodic Other aftercare (1 source) Other long term care social worker (current) drug therapy; Translations: [OTH SENIOR LIVING CURRENT DRUG THERAPY] Onset: 02-19-2022 Episodic Results Test Name Value Interpretation Reference Range Facility Office Visiton 12-25-2022 Follow-up visit [id number] Johanny Dalton 1955 F Date Provider Department Center 12/25/2022 271-LEE, ANGEAB CARD [facility] Family History Problem Relation Age of Onset Stroke Mother Other Mother Aortic aneurysm Father Hyperlipidemia Brother Aortic aneurysm Brother Family Status - Relation Status Age at Mother Father Brother Level of Service:58858 [place] OFFICE/OUTPATIENT ESTABLISHED LOW MDM 20-29 MIN Normal [facility] MG MAMM SCREEN 3D NÉSTOR CADon 05-21-2022 MG MAMM SCREEN 3D NÉSTOR CAD Patient: JOHANNY DALTON Exam Date: 05/21/2022 : 1955 Gender:F Ordering : DR SUKHJINDER QUINTERO . Admission #: [id number] Family : Order #: [id number] CLICK HERE TO VIEW EXAM RADIOLOGY REPORT [...] leukemia cancer at age 63. LOCATION: [facility] BREAST COMPOSITION: Scattered areas fibroglandular density. [...] Gonzalez MD on 05/21/2022 at 11:36 Normal [facility] XR DEXA BONE DENSITYon 02-22 XR [...] by: STANISLAW GONZALEZ Date: 2022-02-22 10:20 Normal [facility] INSULINon 02-13-2022 Insulin 10.7 uIU/mL Normal 2.6-24.9 [facility] Comment on above: Performed By: #### I NSULIN ####[facility] [address] [address]Dr. Lindsay Varela BILIRUBIN CONJUGATED (DIRECT )on 02-12-2022 BILI, CONJUGATED 0.1 mg/dL Normal 0.0-0.2 [facility] Comment on above: Performed By: #### T SH, CMP, T4, FT3, DBIL, LIPID ####[facility] [address] [address]Dr. Lindsay Varela CBC AUTO DIFFon 02-12-2022 BASO # 0.0 103/ul Normal 0.0-0.1 [facility] Comment on above: Performed By: #### C BC #### [facility] [address] [address] [address] Lindsay Varela Basophils/100 WBC (Bld) 0.4 % Normal 0.2-2.0 [facility] Comment on above: Performed By: #### C BC #### [facility] [address] [place] [address] Dr. Lindsay Varela EO # 0.1 103/ul Normal 0.0-0.7 [facility] Comment on above: Performed By: #### C BC #### [facility] [address] [place] [address] Dr. Lindsay Varela Eosinophils/100 WBC (Bld) 2.3 % Normal 0.9-7.0 [facility] Comment on above: Performed By: #### C BC #### [facility] [address] [place] [address] Dr. Lindsay Varela Erythrocyte distribution width (RBC) [Ratio] 12.2 % Normal 11.0-15.0 [facility] Comment on above: Performed By: #### C BC #### [facility] [address] [place] [address] Dr. Lindsay Varela Hematocrit (Bld) [Volume fraction] 41.9 % Normal 36.0-48.0 [facility] Comment on above: Performed By: #### C BC #### [facility] [address] [place] [address] Dr. Lindsay Varela Hemoglobin (Bld) [Mass/Vol] 13.9 g/dL Normal 12.0-16.0 [facility] Comment on above: Performed By: #### C BC #### [facility] [address] [place] [address] Dr. Lindsay Varela IG # 0.01 10e3/ul Normal 0.00-0.03 [facility] Comment on above: Performed By: #### C BC #### [facility] [address] [place] [address] Dr. Lindsay Varela IG % 0.2 % Normal 0.0-0.5 [facility] Comment on above: Performed By: #### C BC #### [facility] [address] [place] [address] Dr. Lindsay Varela LYMPH # 1.4 103/ul Normal 1.2-3.8 [facility] Comment on above: Performed By: #### C BC #### [facility] [address] [place] [address] Dr. Lindsay Varela Lymphocytes/100 WBC (Bld) 29.2 % Normal 20.5-60.0 [facility] Comment on above: Performed By: #### C BC #### [facility] [address] [place] [address] Dr. Lindsay Varela MANUAL DIFF REQ NO Normal [facility] Comment on above: Performed By: #### C BC #### [facility] [address] [place] [address] Dr. Lindsay Varela MCH (RBC) [Entitic mass] 29.4 pg Normal 26.7-34.0 [facility] Comment on above: Performed By: #### C BC #### [facility] [address] [place] [address] Dr. Lindsay Varela MCHC (RBC) [Mass/Vol] 33.2 g/dL Normal 29.9-35.2 [facility] Comment on above: Performed By: #### C BC #### [facility] [address] [place] [address] Dr. Lindsay Varela MCV (RBC) [Entitic vol] 88.6 fL Normal 81.0-99.0 [facility] Comment on above: Performed By: #### C BC #### [facility] [address] [place] [address] Dr. Lindsay Varela MONO # 0.5 103/ul Normal 0.3-0.8 [facility] Comment on above: Performed By: #### C BC #### [facility] [address] [place] [address] Dr. Lindsay Varela Monocytes/100 WBC (Bld) 9.5 % Normal 1.7-12.0 [facility] Comment on above: Performed By: #### C BC #### [facility] [address] [place] [address] Dr. Lindsay Varela NEUT # 2.8 103/ul Normal 1.4-6.5 [facility] Comment on above: Performed By: #### C BC #### [facility] [address] [place] [address] Dr. Lindsay Varela Neutrophils/100 WBC (Bld) 58.4 % Normal 43.0-75.0 [facility] Comment on above: Performed By: #### C BC #### [facility] [address] [place] [address] Dr. Lindsay Varela Platelet mean volume (Bld) [Entitic vol] 9.7 fL Normal 9.5-13.5 [facility] Comment on above: Performed By: #### C BC #### [facility] [address] [address] [address] Lindsay Varela PLT 181 103/ul Normal 150-450 [facility] Comment on above: Performed By: #### C BC #### [facility] [address] [address] [address] Lindsay Varela RBC 4.73 106/ul Normal 4.20-5.40 [facility] Comment on above: Performed By: #### C BC #### [facility] [address] [address] [address] Lindsay Varela WBC 4.8 103/ul Normal 4.0-11.0 [facility] Comment on above: Performed By: #### C BC #### [facility] [address] [place] [address] Dr. Lindsay Varela FREE T3on 02-12-2022 FREE T3 2.78 pg/mlL Normal 2.18-3.98 [facility] Comment on above: Performed By: #### T SH, CMP, T4, FT3, DBIL, LIPID #### [facility] [address] [place] [address] Dr. Lindsay Varela GLYCOHEMOGLOBIN A1Con 2021 ADA RECOMMENDATION SEE BELOW Normal [facility] Comment on above: Result Comment: ADA RECOMMENDED LIMIT 4.0 - 6.0 ADA THERAPEUTIC TARGET < 7.0 ACTION SUGGESTED > 7.0 Performed By: #### A 1C ####[facility] [address] [address]Dr. Lindsay Varela Glucose [Mass/Vol] 105 mg/dL Normal [facility] Comment on above: Performed By: #### A 1C ####[facility] [address] [address]Dr. Lindsay Varela HbA1c (Bld) [Mass fraction] 5.3 % Normal 4.5-6.2 [facility] Comment on above: Performed By: #### A 1C ####[facility] [address] [place], [place] [address]FwDr. Lindsay Varela IRONon 02-12-2022 Iron [Mass/Vol] 71.0 ug/dL Normal 50.0-170.0 [facility] Comment on above: Performed By: #### V ITAD, IRON #### [facility] [address] [address] [address] Lindsay Varela LIPID PROFILEon 02-12-2022 CHOL-HDL RATIO NORM SEE BELOW Normal [facility] Comment on above: Result Comment: 3.3 - 4.4 LOW RISK 4.4 - 7.1 AVERAGE RISK 7.1 - 11.0 MODERATE RISK >11.0 HIGH RISK Performed By: #### T SH, CMP, T4, FT3, DBIL, LIPID #### [facility] [address] [address] [address] Lindsay Varela Cholesterol [Mass/Vol] 141 mg/dL Normal <=200 [facility] Comment on above: Performed By: #### T SH, CMP, T4, FT3, DBIL, LIPID #### [facility] [address] [address] [address] Lindsay Varela Cholesterol in HDL [Mass/Vol] 44 mg/dL Normal 40-60 [facility] Comment on above: Performed By: #### T SH, CMP, T4, FT3, DBIL, LIPID #### [facility] [address] [address] [address] Lindsay Varela Cholesterol in LDL [Mass/Vol] 77.0 mg/dL Normal [facility] Comment on above: Performed By: #### T SH, CMP, T4, FT3, DBIL, LIPID #### [facility] [address] [address] [address] Lindsay Varela Cholesterol.total/Cho lesterol in HDL [Mass ratio] 3.2 {ratio} Normal [facility] Comment on above: Performed By: #### T SH, CMP, T4, FT3, DBIL, LIPID #### [facility] [address] [address] [address] Lindsay Varela HDL NORMAL > or = 60 mg/dl - LOW CARDIOVASCULAR RISK <40 mg/dl - HIGH CARDIOVASCULAR RISK Normal [facility] Comment on above: Performed By: #### T SH, CMP, T4, FT3, DBIL, LIPID #### [facility] [address] [place] [address] Dr. Lindsay Varela LDL CALC NORMAL SEE BELOW Normal [facility] Comment on above: Result Comment: <100 mg/dl OPTIMAL 100 - 129 mg/dl NEAR OR ABOVE OPTIMAL 130 - 159 mg/dl BORDERLINE HIGH 160 - 189 mg/dl HIGH >190 mg/dl VERY HIGH Performed By: #### T SH, CMP, T4, FT3, DBIL, LIPID #### [facility] [address] [address] [address] Lindsay Varela Triglyceride [Mass/Vol] 100 mg/dL Normal <=150 [facility] Comment on above: Performed By: #### T SH, CMP, T4, FT3, DBIL, LIPID #### [facility] [address] [place] [address] Dr. Lindsay Varela VLDL CALC 20.0 mg/dL Normal [facility] Comment on above: Performed By: #### T SH, CMP, T4, FT3, DBIL, LIPID #### [facility] [address] [place] [address] Dr. Lindsay Varela PROF 14(COMP METB)on 022 Albumin [Mass/Vol] 3.8 g/dL Normal 3.4-5.0 [facility] Comment on above: Performed By: #### T SH, CMP, T4, FT3, DBIL, LIPID #### [facility] [address] [place] [address] Dr. Lindsay Varela Albumin/Globulin [Mass ratio] 1.1 {ratio} Normal [facility] Comment on above: Performed By: #### T SH, CMP, T4, FT3, DBIL, LIPID #### [facility] [address] [place] [address] Dr. Lindsay Varela ALP [Catalytic activity/Vol] 107 U/L Normal 46-116 [facility] Comment on above: Performed By: #### T SH, CMP, T4, FT3, DBIL, LIPID #### [facility] [address] [place] [address] Dr. Lindsay Varela ALT [Catalytic activity/Vol] 19 U/L Normal 14-59 [facility] Comment on above: Performed By: #### T SH, CMP, T4, FT3, DBIL, LIPID #### [facility] [address] [place] [address] Dr. Lindsay Varela Anion gap [Moles/Vol] 10.5 mmol/L Normal Th [facility] Comment on above: Performed By: #### T SH, CMP, T4, FT3, DBIL, LIPID #### [facility] [address] [place] [address] Dr. Lindsay Varela AST [Catalytic activity/Vol] 16 U/L Normal 15-37 [facility] Comment on above: Performed By: #### T SH, CMP, T4, FT3, DBIL, LIPID #### [facility] [address] [place] [address] Dr. Lindsay Varela Bilirubin [Mass/Vol] 0.5 mg/dL Normal 0.2-1.0 [facility] Comment on above: Performed By: #### T SH, CMP, T4, FT3, DBIL, LIPID #### [facility] [address] [place] [address] Dr. Lindsay Varela Calcium [Mass/Vol] 9.2 mg/dL Normal 8.5-10.1 [facility] Comment on above: Performed By: #### T SH, CMP, T4, FT3, DBIL, LIPID #### [facility] [address] [place] [address] Dr. Lindsay Varela Chloride [Moles/Vol] 102 mmol/L Normal 98-107 [facility] Comment on above: Performed By: #### T SH, CMP, T4, FT3, DBIL, LIPID #### [facility] [address] [place] [address] Dr. Lindsay Varela CO2 [Moles/Vol] 29.9 mmol/L Normal 21.0-32.0 [facility] Comment on above: Performed By: #### T SH, CMP, T4, FT3, DBIL, LIPID #### [facility] [address] [place] [address] Dr. Lindsay Varela Creatinine [Mass/Vol] 0.92 mg/dL Normal 0.55-1.02 [facility] Comment on above: Performed By: #### T SH, CMP, T4, FT3, DBIL, LIPID #### [facility] [address] [place] [address] Dr. Lindsay Varela EGFR-AF [place] >60 Normal >=60 [facility] Comment on above: Performed By: #### T SH, CMP, T4, FT3, DBIL, LIPID #### [facility] [address] [place] [address] Dr. Lindsay Varela EGFR-NON AF [place] >60 Normal >=60 [facility] Comment on above: Performed By: #### T SH, CMP, T4, FT3, DBIL, LIPID #### [facility] [address] [place] [address] Dr. Lindsay Varela Globulin (S) [Mass/Vol] 3.6 g/dL Normal [facility] Comment on above: Performed By: #### T SH, CMP, T4, FT3, DBIL, LIPID #### [facility] [address] [place] [address] Dr. Lindsay Varela Glucose [Mass/Vol] 100 mg/dL Normal 74-106 [facility] Comment on above: Performed By: #### T SH, CMP, T4, FT3, DBIL, LIPID #### [facility] [address] [place] [address] Dr. Lindsay Varela Potassium [Moles/Vol] 4.4 mmol/L Normal 3.5-5.1 [facility] Comment on above: Performed By: #### T SH, CMP, T4, FT3, DBIL, LIPID #### [facility] [address] [place] [address] Dr. Lindsay Varela Protein [Mass/Vol] 7.4 g/dL Normal 6.4-8.2 [facility] Comment on above: Performed By: #### T SH, CMP, T4, FT3, DBIL, LIPID #### [facility] [address] [address] [address] Lindsay Varela Sodium [Moles/Vol] 138 mmol/L Normal 136-145 [facility] Comment on above: Performed By: #### T SH, CMP, T4, FT3, DBIL, LIPID #### [facility] [address] [place] [address] Dr. Lindsay Varela Urea nitrogen [Mass/Vol] 18.0 mg/dL Normal 7.0-18.0 [facility] Comment on above: Performed By: #### T SH, CMP, T4, FT3, DBIL, LIPID #### [facility] [address] [place] [address] Dr. Lindsay Varela Urea nitrogen/Creatinine [Mass ratio] 19.6 mg/mg Normal [facility] Comment on above: Performed By: #### T SH, CMP, T4, FT3, DBIL, LIPID #### [facility] [address] [place] [address] Dr. Lindsay Varela T4on 02-12-2022 T4 [Mass/Vol] 9.00 ug/dL Normal 4.80-13.90 [facility] Comment on above: Performed By: #### T SH, CMP, T4, FT3, DBIL, LIPID #### [facility] [address] [place] [address] Dr. Lindsay Varela TSHon 02-12-2022 TSH 2.036 uIU/mL Normal 0.358-3.740 [facility] Comment on above: Performed By: #### T SH, CMP, T4, FT3, DBIL, LIPID #### [facility] [address] [place] [address] Dr. Lindsay Varela VITAMIN D 25 OHon 02-12-2022 VIT D 25-OH 66.4 ng/mL Normal [facility] Comment on above: Performed By: #### V ITAD, IRON #### [facility] [address] [place] [address] Dr. Lindsay Varela VIT D RANGES SEE BELOW Normal [facility] Comment on above: Result Comment: <20 ng/mL Vit D deficient 20 - <30 ng/mL Vit D insufficient 30 - 100 ng/mL Vit D sufficient >100 ng/mL Potential Toxicity Performed By: #### V ITAD, IRON #### [facility] [address] [address] [address] Lindsay Varela Office Visiton 02-08-2022 Follow-up visit [id number] Johanny Dalton 1955 F Date Provider Department [facility] No family history on file Level of Service:43316 [place] OFFICE/OUTPATIENT ESTABLISHED LOW MDM 20-29 MIN Reason for Visit and Comments: Follow-up [189393] - 1 year Normal [facility] Encounters Encounter Date Encounter Type Care Provider Facility Start: 12-25-2022 End: 12-25-2022 ambulatory [facility] Start: 05-21-2022 End: 05-22-[address] SUKHJINDER QUINTERO . Facility: Start: 02-22-2022 End: 02-23-[address] SUKHJINDER QUINTERO . Facility:[facility] Start: 02-12-2022 End: 02-13-[address] SUKHJINDER QUINTERO . Facility: Start: 02-08-2022 End: 02-08-2022 ambulatory [facility] Start: 02-09-2018 End: 02-10-2018 Patient encounter procedure DEFAULT PHYSICIAN Facility:[facility] Payers Date Payer Category Payer Medicare [id number] 1961 Unknown [id number] 1955 Unknown [id number] [id number] 1955 Unknown [id number] 2.16.84 [id number] 1955 Unknown [id number] 2.16.84 [id number] 1955 Unknown [id number] 2.16.84 [id number] Unknown Progress note 12-25-2022 Note Date & Type Note Facility 12-25-2022 Note [facility] Cardiology Clinic Note Chief Complaint: Patient here for 1 year follow up CAD, aortic valve regurgitation, and dyspnea. She denies chest pain, palpitations, and LE edema. Says her GOLDSTEIN remains unchanged from last year. No recent labs or testing. HPI: Johanny Dalton is a 66 y.o. [...] No family history on file. Allergies Atorvastatin, Cwvwgserug-fbhfijj-ubptmrbj, Nujgsjw-rufidbvmnf-wxo-caff, and Metoprolol Medications Current Outpatient Medications: ascorbic [...] as assessed by fractional flow reserve. 2. Phhf-ji-ldczirwo disease of the left anterior descending and [...] 1 year or sooner should problems arise Jacquelyn Knight MD, MPH, [facility], [facility], [facility] Interventional Cardiology Pager Email: [email or web address] Progress note 02-08-2022 Note Date & Type Note Facility 02-08-2022 Note [facility] Cardiology Clinic Note Chief Complaint: 1 year follow up HPI: Joahnny Dalotn is a 66 y.o. female with moderate [...] as assessed by fractional flow reserve. 2. Aktk-gs-sjoknqda disease of the left anterior descending and [...] 1 year or sooner should problems arise Jacquelyn Knight MD, MPH, [facility], [facility], [facility] Interventional Cardiology Pager Email: [email or web address] Summary Purpose Family History No Family History Records FoundNo Family History Records FoundNo Family History Records Found Advance Directives No Advanced Directives Records FoundNo Advanced Directives Records FoundNo Advanced Directives Records Found Additional Source Comments INFORMATION SOURCE (unrecogn ized section and content) DATE CREATED AUTHOR 03/02/2018 [facility] DATE CREATED AUTHOR AUTHOR'S ORGANIZ ATION 05/28/2022 [facility] DATE CREATED AUTHOR AUTHOR'S ORGANIZ ATION 12/29/2022 [facility] FOR RECORDS PERTAINING TO PATIENTS WHO ARE [...] BE BASED ON THE PRIMARY CLINICAL RECORDS. [employer] provides no warranty or guarantee of the accuracy or completeness of information in this document.
== END 2024-03-18 08:31 | disposition home or self-care (01) ==
LOC: CT 08:30
PROVIDERS: PCP Family Medicine; Visit Provider Family Medicine
DX: M81.0 Age-related osteoporosis without current pathological fracture (principal); Z87.891 Personal history of nicotine dependence; M85.80 Other specified disorders of bone density and structure, unspecified site
CPT/HCPCS: 71271; 77080

== ENCOUNTER 2024-05-24 07:48 | Outpatient (OUT) | payer MEDICARE, OTHER, SELFPAY ==
--- NOTE | 2024-05-24 07:52 | MM_ITS ---
Patient Name: JOHANNY CRISTINA MR#: [id number] : 1955 Exam Date: 05/24/2024 Ordering Doctor: DR Santi Malagon . RADIOLOGY REPORT PROCEDURE: MM TOMOSYNTHESIS SCREENING BI COMPARISON: MM TOMOSYNTHESIS SCREENING BI, 05/22/2023. MG MAMM SCREEN 3D NÉSTOR CAD, 05/21/2022. MG MAMM SCREEN 3D NÉSTOR CAD, 05/17/2021. MG MAMM NÉSTOR SCRN W CAD DIG, 12/29/2012. INDICATIONS: Screening Calculator Name NCI Breast Cancer Risk Assessment Tool 5 Year Breast Cancer Risk 1.20% Lifetime Breast Cancer Risk 3.70% Personal Breast Cancer No Personal Ovarian Cancer No Treatments None Family Cancers Uncle-paternal with stomach cancer at age 74; Uncle-paternal with thyroid cancer at age 78; Grandfather-paternal with thyroid cancer at age 71; Uncle-maternal with leukemia cancer at age 65. LOCATION: [facility] BREAST COMPOSITION: There are scattered areas of fibroglandular density. FINDINGS: DIAGNOSTIC CATEGORY 1--NEGATIVE. RIGHT BREAST: No significant suspicious finding. LEFT BREAST: No significant suspicious finding. RECOMMENDATIONS: ROUTINE MAMMOGRAM AND CLINICAL EVALUATION IN 12 MONTHS. PLEASE NOTE: A NORMAL MAMMOGRAM DOES NOT EXCLUDE THE POSSIBILITY OF BREAST CANCER. A CLINICALLY SUSPICIOUS PALPABLE LUMP SHOULD BE BIOPSIED. Dictated by: Tex Romero DO on 05/25/2024 at 12:11 Approved by: Tex Romeor DO on 05/25/2024 at 12:13
--- OUTSIDE RECORDS SUMMARY | 2024-05-24 08:10 | XMS_ITS | CCD ---
Author Organization [facility] CliniSyid Care Team Providers Care Functional Tester Name Role Phone PHYSICIAN, DEFAULT Unavailable Unavailable [...] sources) Vigabatrin Drug Allergy 0 AOF [facility] Repository (1 source) atorvastatin; Translations: [ATORVASTATIN] Drug Allergy 6 [facility] Repository (1 source) Metoprolol; Translations: [METOPROLOL] Drug Allergy 6 [facility] Repository (1 source) BUTALBITAL-ASPIR IN-CAFFEINE; Translations: [BUTALBITAL-ASPI RIN-CAFFEINE] Propensity to adverse reactions to drug (disorder) 2 [facility] Repository (1 source) CODEINE-BUTALBIT AL-ASA-CAFF; Translations: [CODEINE-BUTALBI [id number]] Propensity to adverse reactions to drug (disorder) 5 [facility] Repository Problems Active Problems Problem Classification Problem Date Documented Date Episodic/Chronic Coronary atherosclerosis and other heart disease (2 sources) Atherosclerotic heart disease of [place] coronary artery without angina pectoris; Translations: [Atherosclerotic heart disease of [place] coronary artery without angina pectoris] Onset: 12-25-2022 [...] 11-29-2022 Episodic Other aftercare (1 source) Other jail (current) drug therapy; Translations: [OTH INDEPENDENT PRODUCER CURRENT DRUG THERAPY] Onset: 02-19-2022 Episodic Results Test Name Value Interpretation Reference Range Facility Office Visiton 12-25-2022 Follow-up visit [id number] Johanny Dalton 1955 F Date Provider Department Center 12/25/2022 271-LEE, [facility] Family History Problem Relation Age of Onset Stroke Mother Other Mother Aortic aneurysm Father Hyperlipidemia Brother Aortic aneurysm Brother Family Status - Relation Status Age at Mother Father Brother Level of Service:90157 [place] OFFICE/OUTPATIENT ESTABLISHED LOW MDM 20-29 MIN Normal [facility] MG MAMM SCREEN 3D NÉSTOR CADon 05-21-2022 MG MAMM SCREEN 3D NÉSTOR CAD Patient: JOHANNY DALTON Exam Date: 05/21/2022 : 1955 Gender:F Ordering : DR SUKHJINDER QUINTERO . Admission #: [id number] Family : Order #: [id number] CLICK HERE TO VIEW EXAM RADIOLOGY REPORT [...] leukemia cancer at age 63. LOCATION: [facility] BREAST COMPOSITION: Scattered areas fibroglandular density. [...] MD on 05/21/2022 at 11:36 Normal [facility] XR DEXA BONE DENSITYon 02-22 XR [...] STANISLAW GONZALEZ Date: 2022-02-22 10:20 Normal [facility] INSULINon 02-13-2022 Insulin 10.7 uIU/mL Normal 2.6-24.9 [facility] Comment on above: Performed By: #### I NSULIN ####[facility] [address] [address]Dr. Lindsay Varela BILIRUBIN CONJUGATED (DIRECT )on 02-12-2022 BILI, CONJUGATED 0.1 mg/dL Normal 0.0-0.2 [facility] Comment on above: Performed By: #### T SH, CMP, T4, FT3, DBIL, LIPID ####[facility] [address] [address]Dr. Lindsay Varela CBC AUTO DIFFon 02-12-2022 BASO # 0.0 103/ul Normal 0.0-0.1 [facility] Comment on above: Performed By: #### C BC #### [facility] [address] [address] [address] Lindsay Varela Basophils/100 WBC (Bld) 0.4 % Normal 0.2-2.0 [facility] Comment on above: Performed By: #### C BC #### [facility] [address] [place] [address] Dr. Lindsay Varela EO # 0.1 103/ul Normal 0.0-0.7 [facility] Comment on above: Performed By: #### C BC #### [facility] [address] [place] [address] Dr. Lindsay Varela Eosinophils/100 WBC (Bld) 2.3 % Normal 0.9-7.0 [facility] Comment on above: Performed By: #### C BC #### [facility] [address] [place] [address] Dr. Lindsay Varela Erythrocyte distribution width (RBC) [Ratio] 12.2 % Normal 11.0-15.0 [facility] Comment on above: Performed By: #### C BC #### [facility] [address] [place] [address] Dr. Lindsay Varela Hematocrit (Bld) [Volume fraction] 41.9 % Normal 36.0-48.0 [facility] Comment on above: Performed By: #### C BC #### [facility] [address] [place] [address] Dr. Lindsay Varela Hemoglobin (Bld) [Mass/Vol] 13.9 g/dL Normal 12.0-16.0 [facility] Comment on above: Performed By: #### C BC #### [facility] [address] [place] [address] Dr. Lindsay Varela IG # 0.01 10e3/ul Normal 0.00-0.03 [facility] Comment on above: Performed By: #### C BC #### [facility] [address] [place] [address] Dr. Lindsay Varela IG % 0.2 % Normal 0.0-0.5 [facility] Comment on above: Performed By: #### C BC #### [facility] [address] [place] [address] Dr. Lindsay Varela LYMPH # 1.4 103/ul Normal 1.2-3.8 [facility] Comment on above: Performed By: #### C BC #### [facility] [address] [place] [address] Dr. Lindsay Varela Lymphocytes/100 WBC (Bld) 29.2 % Normal 20.5-60.0 [facility] Comment on above: Performed By: #### C BC #### [facility] [address] [place] [address] Dr. Lindsay Varela MANUAL DIFF REQ NO Normal [facility] Comment on above: Performed By: #### C BC #### [facility] [address] [place] [address] Dr. Lindsay Varela MCH (RBC) [Entitic mass] 29.4 pg Normal 26.7-34.0 [facility] Comment on above: Performed By: #### C BC #### [facility] [address] [place] [address] Dr. Lindsay Varela MCHC (RBC) [Mass/Vol] 33.2 g/dL Normal 29.9-35.2 [facility] Comment on above: Performed By: #### C BC #### [facility] [address] [place] [address] Dr. Lindsay Varela MCV (RBC) [Entitic vol] 88.6 fL Normal 81.0-99.0 [facility] Comment on above: Performed By: #### C BC #### [facility] [address] [place] [address] Dr. Lindsay Varela MONO # 0.5 103/ul Normal 0.3-0.8 [facility] Comment on above: Performed By: #### C BC #### [facility] [address] [place] [address] Dr. Lindsay Varela Monocytes/100 WBC (Bld) 9.5 % Normal 1.7-12.0 [facility] Comment on above: Performed By: #### C BC #### [facility] [address] [place] [address] Dr. Lindsay Varela NEUT # 2.8 103/ul Normal 1.4-6.5 [facility] Comment on above: Performed By: #### C BC #### [facility] [address] [place] [address] Dr. Lindsay Varela Neutrophils/100 WBC (Bld) 58.4 % Normal 43.0-75.0 [facility] Comment on above: Performed By: #### C BC #### [facility] [address] [place] [address] Dr. Lindsay Varela Platelet mean volume (Bld) [Entitic vol] 9.7 fL Normal 9.5-13.5 [facility] Comment on above: Performed By: #### C BC #### [facility] [address] [address] [address] Lindsay Varela PLT 181 103/ul Normal 150-450 [facility] Comment on above: Performed By: #### C BC #### [facility] [address] [address] [address] Lindsay Varela RBC 4.73 106/ul Normal 4.20-5.40 [facility] Comment on above: Performed By: #### C BC #### [facility] [address] [address] [address] Lindsay Varela WBC 4.8 103/ul Normal 4.0-11.0 [facility] Comment on above: Performed By: #### C BC #### [facility] [address] [place] [address] Dr. Lindsay Varela FREE T3on 02-12-2022 FREE T3 2.78 pg/mlL Normal 2.18-3.98 [facility] Comment on above: Performed By: #### T SH, CMP, T4, FT3, DBIL, LIPID #### [facility] [address] [place] [address] Dr. Lindsay Varela GLYCOHEMOGLOBIN A1Con 2021 ADA RECOMMENDATION SEE BELOW Normal [facility] Comment on above: Result Comment: ADA RECOMMENDED LIMIT 4.0 - 6.0 ADA THERAPEUTIC TARGET < 7.0 ACTION SUGGESTED > 7.0 Performed By: #### A 1C ####[facility] [address] [address]Dr. Lindsay Varela Glucose [Mass/Vol] 105 mg/dL Normal [facility] Comment on above: Performed By: #### A 1C ####[facility] [address] [address]Dr. Lindsay Varela HbA1c (Bld) [Mass fraction] 5.3 % Normal 4.5-6.2 [facility] Comment on above: Performed By: #### A 1C ####[facility] [address] [place], [place] [address]GdDr. Lindsay Varela IRONon 02-12-2022 Iron [Mass/Vol] 71.0 ug/dL Normal 50.0-170.0 [facility] Comment on above: Performed By: #### V ITAD, IRON #### [facility] [address] [address] [address] Lindsay Varela LIPID PROFILEon 02-12-2022 CHOL-HDL RATIO NORM SEE BELOW Normal [facility] Comment on above: Result Comment: 3.3 - 4.4 LOW RISK 4.4 - 7.1 AVERAGE RISK 7.1 - 11.0 MODERATE RISK >11.0 HIGH RISK Performed By: #### T SH, CMP, T4, FT3, DBIL, LIPID #### [facility] [address] [address] [address] Lindsay Varela Cholesterol [Mass/Vol] 141 mg/dL Normal <=200 [facility] Comment on above: Performed By: #### T SH, CMP, T4, FT3, DBIL, LIPID #### [facility] [address] [address] [address] Lindsay Varela Cholesterol in HDL [Mass/Vol] 44 mg/dL Normal 40-60 [facility] Comment on above: Performed By: #### T SH, CMP, T4, FT3, DBIL, LIPID #### [facility] [address] [address] [address] Lindsay Varela Cholesterol in LDL [Mass/Vol] 77.0 mg/dL Normal [facility] Comment on above: Performed By: #### T SH, CMP, T4, FT3, DBIL, LIPID #### [facility] [address] [address] [address] Lindsay Varela Cholesterol.total/Cho lesterol in HDL [Mass ratio] 3.2 {ratio} Normal [facility] Comment on above: Performed By: #### T SH, CMP, T4, FT3, DBIL, LIPID #### [facility] [address] [address] [address] Lindsay Varela HDL NORMAL > or = 60 mg/dl - LOW CARDIOVASCULAR RISK <40 mg/dl - HIGH CARDIOVASCULAR RISK Normal [facility] Comment on above: Performed By: #### T SH, CMP, T4, FT3, DBIL, LIPID #### [facility] [address] [place] [address] Dr. Lindsay Varela LDL CALC NORMAL SEE BELOW Normal [facility] Comment on above: Result Comment: <100 mg/dl OPTIMAL 100 - 129 mg/dl NEAR OR ABOVE OPTIMAL 130 - 159 mg/dl BORDERLINE HIGH 160 - 189 mg/dl HIGH >190 mg/dl VERY HIGH Performed By: #### T SH, CMP, T4, FT3, DBIL, LIPID #### [facility] [address] [address] [address] Lindsay Varela Triglyceride [Mass/Vol] 100 mg/dL Normal <=150 [facility] Comment on above: Performed By: #### T SH, CMP, T4, FT3, DBIL, LIPID #### [facility] [address] [place] [address] Dr. Lindsay Varela VLDL CALC 20.0 mg/dL Normal [facility] Comment on above: Performed By: #### T SH, CMP, T4, FT3, DBIL, LIPID #### [facility] [address] [place] [address] Dr. Lindsay Varela PROF 14(COMP METB)on 022 Albumin [Mass/Vol] 3.8 g/dL Normal 3.4-5.0 [facility] Comment on above: Performed By: #### T SH, CMP, T4, FT3, DBIL, LIPID #### [facility] [address] [place] [address] Dr. Lindsay Varela Albumin/Globulin [Mass ratio] 1.1 {ratio} Normal [facility] Comment on above: Performed By: #### T SH, CMP, T4, FT3, DBIL, LIPID #### [facility] [address] [place] [address] Dr. Lindsay Varela ALP [Catalytic activity/Vol] 107 U/L Normal 46-116 [facility] Comment on above: Performed By: #### T SH, CMP, T4, FT3, DBIL, LIPID #### [facility] [address] [place] [address] Dr. Lindsay Varela ALT [Catalytic activity/Vol] 19 U/L Normal 14-59 [facility] Comment on above: Performed By: #### T SH, CMP, T4, FT3, DBIL, LIPID #### [facility] [address] [place] [address] Dr. Lindsay Varela Anion gap [Moles/Vol] 10.5 mmol/L Normal [facility] Comment on above: Performed By: #### T SH, CMP, T4, FT3, DBIL, LIPID #### [facility] [address] [place] [address] Dr. Lindsay Varela AST [Catalytic activity/Vol] 16 U/L Normal 15-37 [facility] Comment on above: Performed By: #### T SH, CMP, T4, FT3, DBIL, LIPID #### [facility] [address] [place] [address] Dr. Lindsay Varela Bilirubin [Mass/Vol] 0.5 mg/dL Normal 0.2-1.0 [facility] Comment on above: Performed By: #### T SH, CMP, T4, FT3, DBIL, LIPID #### [facility] [address] [place] [address] Dr. Lindsay Varela Calcium [Mass/Vol] 9.2 mg/dL Normal 8.5-10.1 [facility] Comment on above: Performed By: #### T SH, CMP, T4, FT3, DBIL, LIPID #### [facility] [address] [place] [address] Dr. Lindsay Varela Chloride [Moles/Vol] 102 mmol/L Normal 98-107 [facility] Comment on above: Performed By: #### T SH, CMP, T4, FT3, DBIL, LIPID #### [facility] [address] [place] [address] Dr. Lindsay Varela CO2 [Moles/Vol] 29.9 mmol/L Normal 21.0-32.0 [facility] Comment on above: Performed By: #### T SH, CMP, T4, FT3, DBIL, LIPID #### [facility] [address] [place] [address] Dr. Lindsay Varela Creatinine [Mass/Vol] 0.92 mg/dL Normal 0.55-1.02 [facility] Comment on above: Performed By: #### T SH, CMP, T4, FT3, DBIL, LIPID #### [facility] [address] [place] [address] Dr. Lindsay Varela EGFR-AF QATARI >60 Normal >=60 [facility] Comment on above: Performed By: #### T SH, CMP, T4, FT3, DBIL, LIPID #### [facility] [address] [place] [address] Dr. Lindsay Varela EGFR-NON AF QATARI >60 Normal >=60 [facility] Comment on above: Performed By: #### T SH, CMP, T4, FT3, DBIL, LIPID #### [facility] [address] [place] [address] Dr. Lindsay Varela Globulin (S) [Mass/Vol] 3.6 g/dL Normal [facility] Comment on above: Performed By: #### T SH, CMP, T4, FT3, DBIL, LIPID #### [facility] [address] [place] [address] Dr. Lindsay Varela Glucose [Mass/Vol] 100 mg/dL Normal 74-106 [facility] Comment on above: Performed By: #### T SH, CMP, T4, FT3, DBIL, LIPID #### [facility] [address] [place] [address] Dr. Lindsay Varela Potassium [Moles/Vol] 4.4 mmol/L Normal 3.5-5.1 [facility] Comment on above: Performed By: #### T SH, CMP, T4, FT3, DBIL, LIPID #### [facility] [address] [place] [address] Dr. Lindsay Varela Protein [Mass/Vol] 7.4 g/dL Normal 6.4-8.2 [facility] Comment on above: Performed By: #### T SH, CMP, T4, FT3, DBIL, LIPID #### [facility] [address] [address] [address] Lindsay Varela Sodium [Moles/Vol] 138 mmol/L Normal 136-145 [facility] Comment on above: Performed By: #### T SH, CMP, T4, FT3, DBIL, LIPID #### [facility] [address] [place] [address] Dr. Lindsay Varela Urea nitrogen [Mass/Vol] 18.0 mg/dL Normal 7.0-18.0 [facility] Comment on above: Performed By: #### T SH, CMP, T4, FT3, DBIL, LIPID #### [facility] [address] [place] [address] Dr. Lindsay Varela Urea nitrogen/Creatinine [Mass ratio] 19.6 mg/mg Normal [facility] Comment on above: Performed By: #### T SH, CMP, T4, FT3, DBIL, LIPID #### [facility] [address] [place] [address] Dr. Lindsay Varela T4on 02-12-2022 T4 [Mass/Vol] 9.00 ug/dL Normal 4.80-13.90 [facility] Comment on above: Performed By: #### T SH, CMP, T4, FT3, DBIL, LIPID #### [facility] [address] [place] [address] Dr. Lindsay Varela TSHon 02-12-2022 TSH 2.036 uIU/mL Normal 0.358-3.740 [facility] Comment on above: Performed By: #### T SH, CMP, T4, FT3, DBIL, LIPID #### [facility] [address] [place] [address] Dr. Lindsay Varela VITAMIN D 25 OHon 02-12-2022 VIT D 25-OH 66.4 ng/mL Normal [facility] Comment on above: Performed By: #### V ITAD, IRON #### [facility] [address] [place] [address] Dr. Lindsay Varela VIT D RANGES SEE BELOW Normal [facility] Comment on above: Result Comment: <20 ng/mL Vit D deficient 20 - <30 ng/mL Vit D insufficient 30 - 100 ng/mL Vit D sufficient >100 ng/mL Potential Toxicity Performed By: #### V ITAD, IRON #### [facility] [address] [address] [address] Lindsay Varela Office Visiton 02-08-2022 Follow-up visit [id number] Johanny Dalton 1955 F Date Provider Department Center 02/08[facility]2022 [facility] No family history on file Level of Service:00882 [place] OFFICE/OUTPATIENT ESTABLISHED LOW MDM 20-29 MIN Reason for Visit and Comments: Follow-up [694381] - 1 year Normal [facility] Encounters Encounter Date Encounter Type Care Provider Facility Start: 12-25-2022 End: 12-25-2022 ambulatory [facility] Start: 05-21-2022 End: 05-22-[address] SUKHJINDER QUINTERO . Facility: Start: 02-22-2022 End: 02-23-[address] SUKHJINDER QUINTERO . Facility:[facility] Start: 02-12-2022 End: 02-13-[address] SUKHJINDER QUINTERO . Facility: Start: 02-08-2022 End: 02-08-2022 ambulatory [facility] Start: 02-09-2018 End: 02-10-2018 Patient encounter procedure DEFAULT PHYSICIAN Facility:[facility] Payers Date Payer Category Payer Medicare [id number] 1961 Unknown [id number] 1955 Unknown [id number] [id number] 1955 Unknown [id number] [id number] [id number] 1955 Unknown [id number] [id number] [id number] 1955 Unknown [id number] 2.16.84 [id number] Unknown Progress note 12-25-2022 Note Date & Type Note Facility 12-25-2022 Note [facility] Cardiology Clinic Note Chief Complaint: Patient [...] No family history on file. Allergies Atorvastatin, Vlsogdcsmr-kffwnmj-ixirrowq, Stzpiln-akkoiplfuk-cof-caff, and Metoprolol Medications Current Outpatient Medications: ascorbic [...] as assessed by fractional flow reserve. 2. Ordo-xm-dcymfokx disease of the left anterior descending and [...] year or sooner should problems arise Jacquelyn Kinght MD, MPH, [facility], [facility], [facility] Interventional Cardiology Pager Email: [email or web address] Progress note 02-08-2022 Note Date & Type Note Facility 02-08-2022 Note [facility] Cardiology Clinic Note Chief Complaint: 1 [...] as assessed by fractional flow reserve. 2. Dwfm-vv-cwoixvmn disease of the left anterior descending and [...] 1 year or sooner should problems arise Jacquleyn Knihgt MD, MPH, [facility], [facility], [facility] Interventional Cardiology Pager Email: [email or web address] Summary Purpose Family History No Family History Records FoundNo Family History Records FoundNo Family History Records Found Advance Directives No Advanced Directives Records FoundNo Advanced Directives Records FoundNo Advanced Directives Records Found Additional Source Comments INFORMATION SOURCE (unrecogn ized section and content) DATE CREATED AUTHOR 03/02/2018 [facility] DATE CREATED AUTHOR AUTHOR'S ORGANIZ ATION 05/28/2022 [facility] DATE CREATED AUTHOR AUTHOR'S ORGANIZ ATION 12/29/2022 [facility] FOR RECORDS PERTAINING TO PATIENTS WHO [...] BE BASED ON THE PRIMARY CLINICAL RECORDS. [employer] provides no warranty or guarantee of the accuracy or completeness of information in this document.
== END 2024-05-24 07:49 | disposition home or self-care (01) ==
LOC: MAMMO 07:48
PROVIDERS: PCP Family Medicine; Visit Provider Family Medicine
DX: Z12.31 Encounter for screening mammogram for malignant neoplasm of breast (principal); Z80.0 Family history of malignant neoplasm of digestive organs; Z80.8 Family history of malignant neoplasm of other organs or systems; Z80.6 Family history of leukemia
CPT/HCPCS: 77063; 77067

== ENCOUNTER 2024-12-18 07:00 | Outpatient (OUT) | payer MEDICARE, OTHER, SELFPAY ==
--- OUTSIDE RECORDS SUMMARY | 2024-12-15 05:50 | XMS_ITS ---
Author Organization The [facility] [place] Address [address] [place] [address] Care Team Providers Care Production Gear Cutter Name Role Phone Paul Malagon Primary Care Provider [phone] REASON FOR VISIT labs Encounters Encounter Location Date Provider Diagnosis [facility] [address] [place] [address] 12/15/2024 Paul Malagon Well adolescent visi t Z00.3 Assessments Encounter Date Diagnosis (ICD Code) Assessment Notes Treatment Notes Treatment Clinical Notes Section Notes 12/15/2024 Well adolescent visit (ICD-10 - Z00.3) Plan Of Treatment Pending Test Test Name Order Date FECAL OCCULT BLOOD 12/15/2024 CBC AUTO DIFF 12/15/2024 GLYCOHEMOGLOBIN A1C 12/15/2024 LIPID PROFILE 12/15/2024 PROF 14(COMP METB) 12/15/2024 THYROID PANEL (T4/TSH/FREE T3) Progress Notes * Ita DALTON EDOB: 4 (69 yo F)Acc No.[id number]:12/15/2024 Patient: Henry RAMOSIta :1955 A ge:69 Y S ex:Female Address:[address] [place] [address] [place] [address] Subjective: * Chief Complaints: * L abs * Medical History: * Surgical History: * Hospitalization/Major Diagno stic Procedure: * Medications: Objective: * Vitals: * Physical Examination: Assessment: * Assessment: 1. W ell adolescent visit - Z00.3 (Primary) Plan: * Treatment: * Procedure Codes: * true * Date: Generated for Yenni lincoln/Molly/Cara on: 0 12/18/2024 07:01 AM EDT
--- OUTSIDE RECORDS SUMMARY | 2024-12-18 07:02 | XMS_ITS | Clinical Summary ---
Author Organization [facility] Address [address] [place] [address] Care Team Providers Care Community Case Manager Name Role Phone Santi Malagon MD Primary Care Provider [phone] Allergies Active Allergy Reactions Criticality Noted Date Comments Atorvastatin Swelling 08/16/2015 Gipnmrjvua-Lninppe-Rscygzpx 02/08/20 22 Axtggho-Bmtnoucyap-Vcz-Caff 08/24/19 15 Metoprolol Dizziness,Swelling 08/16/2015 Medications aspirin 81 mg EC tablet Take 1 tablet every day by oral route. Active buPROPion XL (Wellbutrin XL) 300 mg 24 hr tablet Take 1 tablet by mouth in the morning. Active FeroSuL 325 mg (65 mg iron) tablet Take 1 tablet by mouth in the morning and at bedtime. 2 Active cholecalciferol, vitamin D3, 50 mcg (2,000 unit) capsule Take 1 capsule by mouth in the morning. Active zinc sulfate (ZINC-15 ORAL) Take by mouth. Active ascorbic acid (Vitamin C) 100 mg tablet Take 100 mg by mouth in the morning. Active rosuvastatin (Crestor) 10 mg tabletIndications :Coronary artery disease, unspecified vessel or lesion type, unspecified whether angina present, unspecified whether lone pine or transplanted heart Take 1 tablet (10 mg) by mouth at bedtime. 90 tablet 3 3 Active carvedilol (Coreg) 3.125 mg tabletIndications :Essential hypertension Take 1 tablet (3.125 mg) by mouth with breakfast and with evening meal. 180 tablet 3 3 Active diclofenac (Voltaren) 75 mg EC tablet Take 75 mg by mouth in the morning and at bedtime. 09/07/202 3 Active Active Problems Problem Noted Date Diagnosed Date Allergic reaction 12/25/2022 12/25/2022 Aortic valve regurgitation 12/25/202212/25 Cardiovascular stress test abnormal 12/25/2022 12/25/2022 Chest pain 12/25/2022 12/25/2022 Coronary arteriosclerosis 12/25/20222022 Dyspnea 12/25/2022 12/25/2022 Edema 12/25/2022 12/25/2022 Irritable bowel syndrome 12/25/2022 023 Lightheadedness 12/25/2022 12/25/2022 Elective procedure for unacceptable cosmetic radha earance 08/23/2015 12/25/2022 Other plastic surgery for unacceptable cosmetic appearance 04/05/2015 12/25/2022 Family History Medical History Relation Name Comments Aortic aneurysm Brother Hyperlipidemia Brother Aortic aneurysm Father Stroke Mother carotid artery stenosis Mother Relation Name Status Comments Brother Father Mother Social History Tobacco Use Types Packs/Day Years Used Date Smoking Tobacco: Former Cigarettes Q uit: 1999 Smokeless Tobacco: Never Alcohol Use Standard Drinks/Week Comments Yes 0 (1 standard drink = 0.6 oz pur e alcohol) occasional [place] Safety & Environment Answer Date Rec orded Fear of Current or Ex-Partner Not on file Emotionally Abused Not on file 05/15/2023 Physically Abused Not on file 05/15/2023 Sexually Abused Not on file 05/15/2023 Physically or Sexually Abused Not on file Comments Unknown Sex and Gender Information Value Date Recorded Sex Assigned at Female 12/15/2024 10:57 AM EDT Legal Sex Female 9:02 PM EDT Gender Identity Female 12/15/2024 10:57 AM EDT Sexual Orientation Heterosexual or Straight 11/23 10:57 AM EDT Last Filed Vital Signs Vital Sign Reading Time Taken Comments Blood Pressure 107/75 12/25/2022 10:15 AM EDT Pulse 81 12/25/2022 10:15 AM EDT Temperature - - Respiratory Rate - - Oxygen Saturation 96% 12/25/2022 10:15 AM EDT Inhaled Oxygen Concentration - - Weight 94.3 kg (208 lb) 12/25/2022 10:15 AM EDT Height 167.6 cm (5' 6 ) 12/25/2022 10:15 AM EDT Body Mass Index 33.57 12/25/2022 10:15 AM EDT Plan of Treatment Upcoming Encounters Date Type Department Care Team (Late st Contact Info) Description 12/20/2024 11:45 AM EDT Office Visit [facility] [address] [place] [address] Jacquelyn Knight MD [address] [facility] [place] [address] Health Maintenance Due Date Last Done Comments CT Colonography 1955 Colonoscopy 1955 Colorectal Cancer Screening 1955 FIT-DNA 1955 FIT 1955 FOBT 1955 Medicare Annual Wellness (AWV) 1955 Sigmoidoscopy 1955 Depression Screening 1965 Mammogram 1993 Fall Risk Screening 2018 Pneumococcal Vaccine: 50+ Years (3 of 3 - PCV20 or PCV21) 10/12/2022 10/12/2017, 12/24/2015 COVID-19 Vaccine ( - season) 2024 Influenza Vaccine (#1) 2024 , 01/05/2022, 03/26/2021, Additional history exists Adult Tetanus 12/01/2026 12/01/2016 Zoster Vaccines Completed 12/19/2017, 10/10/2017 HIB Vaccines Aged Out No longer eligi ble based on patient's age to complete this topic HPV Vaccines Aged Out No longer eligi ble based on patient's age to complete this topic IPV Vaccines Aged Out No longer eligi ble based on patient's age to complete this topic Meningococcal B Vaccine Aged Out No l onger eligible based on patient's age to complete this topic Meningococcal Vaccine Aged Out No reza ranjan eligible based on patient's age to complete this topic Rotavirus Vaccines Aged Out No longer eligible based on patient's age to complete this topic Insurance MEDICARE [facility] Care Teams Community Case Manager Relationship Specialty Start Date End Date Santi Malagon MD [address] [facility] [address] [address] PCP - General 12/25/22
--- OUTSIDE RECORDS SUMMARY | 2024-12-18 07:02 | XMS_ITS | Clinical Summary ---
Author Organization [facility] Address [address], [address] [place] [address] Care Team Providers Care Golf Course Ranger Name Role Phone Santi Malagon MD Primary Care Provider [phone] Allergies Active Allergy Reactions Criticality Noted Date Comments Wwjwxobezc-Pgy-Tktf-Codeine 08/24/19 15 Atorvastatin Swelling 08/16/2015 Metoprolol Swelling 08/16/2015 Medications Citalopram Hydrobromide (CELEXA PO) Take by mouth Acti ve DICLOFENAC PO Take by mouth Ac tive aspirin 81 MG tablet Take 81 mg by mouth daily Active FLUARIX QUADRIVALENT 0.5 ML injection inject 0.5 milliliter intramuscularly 0 12/24/19 16 Active PREVNAR 13 SUSP inj inject 0.5 milliliter intramuscularly 0 12/24/19 16 Active Active Problems Problem Noted Date Diagnosed Date Elective procedure for unacceptable cosmetic radha earance 08/23/2015 Other plastic surgery for unacceptable cosmetic appearance 04/05/2015 Social History Tobacco Use Types Packs/Day Years Used Date Smoking Tobacco: Former Cigarettes 0.8 20 0 08/25/1980 - 08/25/2000 Alcohol Use Standard Drinks/Week Comments Yes 0 (1 standard drink = 0.6 oz pur e alcohol) occasional Comments No Sex and Gender Information Value Date Recorded Sex Assigned at Not on file Legal Sex Female 6:43 PM EST Gender Identity Not on file Sexual Orientation Not on file Last Filed Vital Signs Vital Sign Reading Time Taken Comments Blood Pressure 129/76 12/27/2015 1:47 PM EDT Pulse 70 12/27/2015 1:47 PM EDT Temperature 36.2 C (97.2 F) 03/29/2015 12:37 PM EST Respiratory Rate 17 12/27/2015 1:47 PM EDT Oxygen Saturation 93% 03/29/2015 1:5 4 PM EST Inhaled Oxygen Concentration - - Weight 86.2 kg (190 lb) 12/27/2015 1:47 PM EDT patient stated Height 167.6 cm (5' 6 ) 12/27/2015 1:47 PM EDT patient stated Body Mass Index 30.67 12/27/2015 1:47 PM EDT Plan of Treatment Not on file Insurance [employer] Care Teams Golf Course Ranger Relationship Specialty Start Date End Date Santi Malagon MD [address] [place] [address] PCP - General 05/18/14
--- OUTSIDE RECORDS SUMMARY | 2024-12-18 07:02 | XMS_ITS | Clinical Summary ---
Author Organization [facility] Address [address] [place] [address] Care Team Providers Care Traffic Operations Manager Name Role Phone Unavailable Primary Care Provider Unavailabl e Social History Tobacco Use Types Packs/Day Years Used Date Smoking Tobacco: Never Assessed Comments Unknown Sex and Gender Information Value Date Recorded Sex Assigned at Not on file Legal Sex Female 6:49 PM EDT Gender Identity Not on file Sexual Orientation Not on file Plan of Treatment Not on file
--- OUTSIDE RECORDS SUMMARY | 2024-12-18 07:02 | XMS_ITS | Patient Health Record ---
Author Organization [facility] Address [address] [place] [address] Care Team Providers Care Medical Technologist Name Role Phone Paul Quintero Primary Care Provider Allergies Allergen (clinical drug ingredient) Drug/Non Drug Allergy documented on EMR Reaction Allergy Type Onset Date Status Fiorinal loopy Drug Allergy Active Results Component Value Reference Range Notes XR DEXA axial skeleton Reviewed date:03/18/2024 06:03:47 PM Interpretation: Performing Lab: Notes/Report: Source Facility: [place] [address] XRay Report Signed Patient: JOHANNY DALTON MR#: [id number] : 1955 Acct:[id number] Age/Sex: 68 / F ADM Date: 03/18/24 Loc: CT Attending Dr: Sukhjinder Quintero M.D. Ordering Physician: Sukhjinder Quintero M.D. Date of Service: 03/18/24 Procedure(s): XR DEXA axial skeleton Accession Number(s): [id number] cc: Sukhjinder Quintero M.D. [place] [id number] Patient Name: JOHANNY DALTON MRN: [id number] date: 1955 Sex: F Assigned Patient Location: CT Current Patient Location: CT Accession/Order Number: [id number] Exam Date: 03/18/2024 08:55 Report Date: 03/18/2024 14:28 At the request of: SUKHJINDER QUINTERO Procedure: XR DEXA axial skeleton EXAMINATION: XR DEXA axial skeleton HISTORY: Age Related Osteoporosis COMPARISON: DEXA bone densitometry 02/22/2022 TECHNIQUE: Dual-energy X-ray absorptiometry (DXA) was performed. FINDINGS: SPINE ANALYSIS: Average bone mineral density is 1.014 g/cm2. T-score (standard deviation relative to young adult mean): -1.5 . Not previously evaluated. HIP ANALYSIS: Lowest bone mineral density is within the right femoral neck, 0.799 g/cm2. T-score (standard deviation relative to young adult mean): -1.7 . -2.8% change since prior study. XR/XR DEXA axial skeleton IMPRESSION: World Health Organization Classification: Osteopenia - Moderate Fracture Risk FRAX: Cannot calculate. Pharmacologic treatment recommendations * No uniform recommendation applies to all patients. Management plans must be individualized. * Consider initiating pharmacologic treatment in postmenopausal women and men >= 50 years of age who have the following: Primary fracture prevention: * T-score <= - 2.5 at the femoral neck, total hip, lumbar spine, 33% radius (some uncertainty with existing data) by DXA. * Low bone mass (osteopenia: T-score between - 1.0 and - 2.5) at the femoral neck or total hip by DXA with a 10-year hip fracture risk >= 3% or a 10-year major osteoporosis-related fracture risk >= 20% (i.e., clinical vertebral, hip, forearm, or proximal humerus) based on the US-adapted FRAXregistered model. Secondary fracture prevention: * Fracture of the hip or vertebra regardless of BMD [4, 5]. * Fracture of proximal humerus, pelvis, or distal forearm in persons with low bone mass (osteopenia: T-score between - 1.0 and - 2.5). The decision to treat should be individualized in persons with a fracture of the proximal humerus, pelvis, or distal forearm who do not have osteopenia or low BMD [12, 13]. Daphne MS, Aamir SL, Rosalva KL, Eduardo EM, Dorie KG, AJ, Masha ES. The clinician's guide to prevention and treatment of osteoporosis. Osteoporos Int. 2021;33(10):8718-4725. doi: 10.1007/d26064-088-82612-g. Epub 2021Jul 19. Erratum in: Osteoporos Int. 2021Oct 18;: PMID: 04934871; PMCID: CQT2143050. Electronically authenticated by: JOAQUIN ROME Date: 03/18/2024 14:28 Dictated By: Joaquin Rome M.D. Signed By: 03/18/24 1431 DD/ 1428 TD/TT: Scientific Programmer Analyst: CT lung screening low-dose Reviewed date:03/20/2024 08:41:15 PM Interpretation: Performing Lab: Notes/Report: Source Facility: [place] [address] CT Scan Report Signed Patient: JOHANNY DALTON MR#: [id number] : 1955 Acct:[id number] Age/Sex: 68 / F ADM Date: 03/18/24 Loc: CT Attending Dr: Sukhjinder Quintero M.D. Ordering Physician: Sukhjinder Quintero M.D. Date of Service: 03/18/24 Procedure(s): CT lung screening low-dose Accession Number(s): [id number] cc: Sukhjinder Quintero M.D. [place] [address] Patient Name: JOHANNY DALTON MRN: [id number] date: 1955 Sex: F Assigned Patient Location: CT Current Patient Location: Accession/Order Number: [id number] Exam Date: 03/18/2024 08:49 Report Date: 03/19/2024 09:53 At the request of: SUKHJINDER QUINTERO Procedure: CT lung screening low-dose EXAMINATION: CT lung screening low-dose HISTORY: Former Smoker COMPARISON: CT chest 09/01/2018 TECHNIQUE: Axial, Coronal, and Sagittal images were created without the administration of IV contrast material. Dose reduction techniques were achieved by using automated exposure control and/or adjustment of mA and/or kV according to patient size and/or use of iterative reconstruction technique. FINDINGS: LUNGS: Mild-moderate emphysematous changes. No suspicious nodules. PLEURA: No mass, effusion, or pneumothorax. VASCULATURE: No abnormality. BOOGIE: No mass or pathologic adenopathy. MEDIASTINUM: Stable, chronic 1.6 cm nodule within upper anterior mediastinum; nonspecific. CARDIAC: No enlargement, pericardial thickening, or pericardial effusion. Coronary Artery calcifications: AORTA: No aneurysm or dissection. CHEST WALL: No mass or axillary adenopathy BONES: No bone lesion or fracture. LIMITED ABDOMEN: No suspicious findings. Limited images of the upper abdomen. OTHER: Negative. CT/CT lung screening low-dose IMPRESSION: 1. Lung-RADS Category 1 Negative. No nodules and definitely benign nodules. Continue annual screening with LDCT in 12 months. Electronically authenticated by: JOAQUIN ROME Date: 03/19/2024 09:53 Dictated By: Joaquin Rome M.D. Signed By: 03/19/2456 DD/ 2 TD/TT: Scientific Programmer Analyst: MM tomosynthesis screening B I Reviewed date:05/25/2024 07:40:23 PM Interpretation: Performing Lab: Notes/Report: Source Facility: [place] [address] Mammography Report Signed Patient: JOHANNY DALTON MR#: [id number] : 1955 Acct:[id number] Age/Sex: 68 / F ADM Date: 05/24/24 Loc: MAMMO Attending Dr: Sukhjinder Quintero M.D. Ordering Physician: Sukhjinder Quintero M.D. Results: Date of Service: 05/24/24 Follow Up: Procedure(s): MM tomosynthesis screening BI Accession Number(s): [id number] cc: Sukhjinder Quintero M.D. Patient Name: JOHANNY DALTON MR#: [id number] : 1955 Exam Date: 05/24/2024 Ordering Doctor: DR Sukhjinder Quintero . RADIOLOGY REPORT PROCEDURE: MM TOMOSYNTHESIS SCREENING BI COMPARISON: MM TOMOSYNTHESIS SCREENING BI, 05/22/2023. MG MAMM SCREEN 3D NÉSTOR CAD, 05/21/2022. MG MAMM SCREEN 3D NÉSTOR CAD, 05/17/2021. MG MAMM NÉSTOR SCRN W CAD DIG, 12/29/2012. INDICATIONS: Screening Calculator Name NCI Breast Cancer Risk Assessment Tool 5 Year Breast Cancer Risk 1.20% Lifetime Breast Cancer Risk 3.70% Personal Breast Cancer No Personal Ovarian Cancer No Treatments None Family Cancers Uncle-paternal with stomach cancer at age 74; Uncle-paternal with thyroid cancer at age 78; Grandfather-paternal with thyroid cancer at age 71; Uncle-maternal with leukemia cancer at age 65. LOCATION: [facility] BREAST COMPOSITION: There are scattered areas of fibroglandular density. FINDINGS: DIAGNOSTIC CATEGORY 1--NEGATIVE. RIGHT BREAST: No significant suspicious finding. LEFT BREAST: No significant suspicious finding. RECOMMENDATIONS: ROUTINE MAMMOGRAM AND CLINICAL EVALUATION IN 12 MONTHS. PLEASE NOTE: A NORMAL MAMMOGRAM DOES NOT EXCLUDE THE POSSIBILITY OF BREAST CANCER. A CLINICALLY SUSPICIOUS PALPABLE LUMP SHOULD BE BIOPSIED. Dictated by: Tex Romero DO on 05/25/2024 at 12:11 Approved by: Tex Romero DO on 05/25/2024 at 12:13 Dictated By: Tex Romero M.D. Signed By: 05/25/24 1214 DD/ 1213 TD/TT: Scientific Programmer Analyst: Reason For Referral No Information Medications Medication SIG (Take, Route, Frequency, Duration) Notes Start Date End Date Status Cephalexin 500 MG 2 capsule Orally twi ce daily; Duration: 10 days Active Triamcinolone Acetonide 0.1 % 1 application Externally Twice a day; Duration: 09/23/2022 Active Triamcinolone Acetonide 0.1 % 1 application Externally Twice a day; Duration: 09/12/2023 Active Vitamin C 500 MG as directed Orally Active Carvedilol 3.125 mg TAKE 1 TABLET TWICE DAILY WITH FOOD; Duration: 90 Active Rosuvastatin Calcium 10 mg TAKE 1 TABLET EVERY DAY; Duration: 90 Active FeroSul 325 (65 Fe) MG take 1 tablet by mouth twice a day; Duration: 30 days Active Aspirin 81 81 MG 1 tablet Orally Once a day Active Vitamin D (Cholecalciferol) 50 MCG (2000 UT) 1 capsule Orally Once a day Active Zinc 100 MG 1 tablet Orally Once a day Active Citracal Plus - as directed Orally Active buPROPion HCl ER (XL) 300 mg TAKE 1 TABLET BY MOUTH IN THE MORNING; Duration: 90 days Active Diclofenac Sodium 75 mg TAKE 1 TABLET BY MOUTH TWICE DAILY; Duration: 30 Active Immunizations Vaccine Route Administration Date Status Comme nts Flu, Fluad (97617) 65 yrs + High Dose Seasonal (6014-3166) Unknown 12/26/2023 Administered Pneumococcal (Pneumovax 23) Unknown 10/12/2017 Administ ered Pneumococcal (Prevnar 13) Unknown 12/24/2015 Administer ed Social History Tobacco Use: Social History Observation Description Date Details (start date - stop date) Former Smoker 03/24/1976 - 03/24/1999 Tobacco Use/Smoking Question Answer Notes Patient is a former smoker When did you start smoking? 03/24/1976 When did you stop smoking? 03/24/1999 Alcohol Screen (Audit-C) Question Answer Notes Did you have a drink containing alcohol in the p ast year? No Points 0 Interpretation Negative AUDIT-C (Standard) Question Answer Notes Did you have a drink containing alcohol in the p ast year? No Points 0 Interpretation Negative Problems Problem Type SNOMED Code ICD Code Onset Dates Problem Status W/U Status Risk Notes Problem Hyperlipidemia (30845559) Hyperlipidemia, unspecified (E78.5) Active confirmed Problem Cervical radiculopathy (91549683) Cervical radiculopathy (M54.12) Active confirmed Problem Obesity (559135773) Obesity (E66.9) Active confirmed Problem Osteopenia (896690682) Osteopenia (M85.80) Active confirmed Problem Weight gain (660863711) Weight gain (R63.5) Active confirmed Problem Irritable bowel syndrome (20051877) Irritable bowel syndrome (K58.9) Active confirmed Problem Contact dermatitis (08413118) Contact dermatitis (L25.9) Active confirmed Problem Streptococcal sore throat (disorder) (13294224) Strep pharyngitis (J02.0) Active confirmed Problem Aortic valve regurgitation (47196856) Aortic valve regurgitation (I35.1) Active confirmed Problem Emphysema (46096344) Emphysema (J43.9) Active confirmed Problem Depression (075689486) Depression (F32.A) Active confirmed Vital Signs Blood pressure diastolic 72 mm Hg 03/11/2024 Height 66 in 03/11/2024 Blood pressure systolic 120 mm Hg 03/11/2024 Weight 187.0 lbs 03/11/2024 BMI 30.18 kg/m2 03/11/2024 Encounters Encounter Location Date Provider Diagnosis [facility] [address] [place] [facility] [place] [place] [address] 05/25/2024 Paul Duvicki [facility] [address] [place] [facility] [place] [place] [address] 08/20/2024 Paul Quintero [facility] [address] [place] [facility] [place] [place] [address] 12/15/2024 Paul Quintero Well adolescent visi t Z00.3 [facility] [address] [place] [address] 03/11/2024 Paul Quintero Osteopenia M85.80 an d Former smoker Z87.891 [facility] [address] [place] [facility] [place] [place] [address] 03/18/2024 Paul Quintero [facility] [address] [place] [facility] [place] [place] [address] 03/18/2024 Paul Vesna [facility] [address] [place] [place] [place] [address] 03/20/2024 Paul Quintero [facility] [address] [place] [address] 03/11/2024 Paul Quintero Encounter for [facility] are annual wellness exam Z00.00 Assessments Encounter Date Diagnosis (ICD Code) Assessment Notes Treatment Notes Treatment Clinical Notes Section Notes 03/11/2024 Encounter for Medicare annual wellness exam (ICD-10 - Z00.00) 03/11/2024 Osteopenia (ICD-10 - M85.80) 03/11/2024 Former smoker (ICD-10 - Z87.891) 12/15/2024 Well adolescent visit (ICD-10 - Z00.3) Plan Of Treatment Pending Test Test Name Order Date FECAL OCCULT BLOOD 12/15/2024 CT Lung Screen Low Dose 03/11/2024 CBC AUTO DIFF 12/15/2024 GLYCOHEMOGLOBIN A1C 12/15/2024 LIPID PROFILE 12/15/2024 PROF 14(COMP METB) 12/15/2024 THYROID PROFILE WITH TSH 05/29/2023 THYROID PANEL (T4/TSH/FREE T3) DEXA BONE DENSITY 03/11/2024 Insurance Providers Payer Name Payer Address Payer Phone Subscriber Number Group Number Insured Name Patient Relationship to Insured Coverage Start Date Coverage End Date MEDICARE [place] [address] [place] [phone] [id number] Johanny Dalton Self - patient is the insured O MEDICARE [employer] T [address] [place] [address] [id number] Johanny Dalton Self - patient is the insured Medications Administered Medication Instructions Date of Administration Dosage Notes Kenalog-40 09/12/2023 80 mg 80 Medical (General) History Medical History History ICD Code Osteopenia M85.80 Obesity E66.9 Cervical radiculopathy M54.12 Emphysema J43.9 Depression F32.A Aortic valve regurgitation I35.1 Irritable bowel syndrome K58.9 Abnormal stress test R94.39 Surgical History Surgery Date(Month/Year) Hysterectomy Total Left Hip Abdominoplasty
[2024-12-18 07:37] LABS: Hematocrit 39.0 % (36.0-48.0); Hemoglobin 12.7 g/dL (12.0-16.0); Immature Granulocytes Abs Auto 0.01 10^3/uL (0.00-0.03); Immature Granulocytes Pct Auto 0.2 % (0.0-0.5); Lymphocytes Absolute Auto 1.2 10^3/uL (1.2-3.8); Mean Corpuscular HGB Conc 32.6 g/dL (29.9-35.2); Mean Corpuscular Hemoglobin 30.0 pg (26.7-34.0); Mean Corpuscular Volume 92.2 fL (81.0-99.0); Platelet Count 170 10^3/uL (150-450); Red Blood Count 4.23 10^6/uL (4.20-5.40); White Blood Count 4.7 10^3/uL (4.0-11.0)
[2024-12-18 08:16] LABS: Alanine Aminotransferase 19 U/L (14-59); Albumin Globulin Ratio 1.0; Albumin Level 3.5 g/dL (3.4-5.0); Alkaline Phosphatase 100 U/L (46-116); Anion Gap 8.3; Aspartate Amino Transferase 20 U/L (15-37); Blood Urea Nitrogen 15.0 mg/dL (7.0-18.0); Calcium 8.8 mg/dL (8.5-10.1); Carbon Dioxide 32.2 mmol/L (21.0-32.0); Chloride 105 mmol/L (98-107); Cholesterol 145 mg/dL (<=200); Estimated GFR (African America >60 (>=60 mL/min/1.73m^2); Estimated GFR (Non-African Ame >60 (>=60 mL/min/1.73m^2); Free T3 1.93 pg/mL (2.18-3.98); Globulin 3.5 g/dL; Glucose 94 mg/dL (74-106); HDL Cholesterol 51 mg/dL (40-60); Potassium 4.5 mmol/L (3.5-5.1); Sodium 141 mmol/L (136-145); Thyroid Stimulating Hormone 2.338 uIU/mL (0.358-3.740); Total Protein 7.0 g/dL (6.4-8.2); Triglycerides 74 mg/dL (<=150); VLDL CHOLESTEROL 14.8 mg/dL
== END 2024-12-18 07:01 | disposition home or self-care (01) ==
LOC: LAB 07:00
PROVIDERS: PCP Family Medicine; Visit Provider Family Medicine
DX: E78.5 Hyperlipidemia, unspecified (principal); E03.9 Hypothyroidism, unspecified; R53.83 Other fatigue
CPT/HCPCS: 36415; 80053; 80061; 83036; 84436; 84443; 84481; 85025; G0328

== ENCOUNTER 2024-12-21 14:00 | Outpatient (REF) | payer MEDICARE, OTHER, SELFPAY | END 2024-12-21 14:01 | disposition home or self-care (01) | LOC: LAB 14:00 | PROVIDERS: PCP Family Medicine; Visit Provider Family Medicine | DX: E78.5 Hyperlipidemia, unspecified (principal); E03.9 Hypothyroidism, unspecified; R53.83 Other fatigue | CPT/HCPCS: G0328 ==

== ENCOUNTER 2025-01-19 10:43 | Outpatient (OUT) | payer MEDICARE, OTHER, SELFPAY ==
--- OUTSIDE RECORDS SUMMARY | 2025-01-19 10:46 | XMS_ITS | Clinical Summary ---
Author Organization [facility] Address [address], [address] [place] [address] Care Team Providers Care Motor Vehicle Lecturer Name Role Phone Santi Malagon MD Primary Care Provider [phone] Allergies Active AllergyReactionsCriticalityNoted EybfQluqwrckCearbcgeia-Wdd-Prbx-Codeine 08/23/20149858JqwsiztwrxmkKdkelwpt79/25/9710WqrxekikwrTssoweos99/25/2016 Medications MedicationSigDispense QuantityRefillsLast FilledStart DateEnd DateStatus Citalopram Hydrobromide (CELEXA PO) Take by mouthActive DICLOFENAC PO Take by mouthActive aspirin 81 MG tablet Take 81 mg by mouth dailyActive FLUARIX QUADRIVALENT 0.5 ML injection inject 0.5 milliliter onbgqdnorzpywcw701/02/2016Active PREVNAR 13 SUSP inj inject 0.5 milliliter cayizchompfzhba025/02/2016Active Active Problems ProblemNoted DateDiagnosed DateElective procedure for unacceptable cosmetic nednleeftd92/01/2016Other plastic surgery for unacceptable cosmetic appearance 04/05/2015 Social History Tobacco UseTypesPacks/DayYears UsedDateSmoking Tobacco: FormerCigarettes0.820 08/25/1980 - 08/25/2000Alcohol UseStandard Drinks/WeekCommentsYes0 (1 standard drink = 0.6 oz pure alcohol)occasionalCommentsNoSex and Gender InformationValueDate RecordedSex Assigned at BirthNot on fileLegal SexFemale 05/03/2012 6:43 PM ESTGender IdentityNot on fileSexual OrientationNot on file Last Filed Vital Signs Vital SignReadingTime TakenCommentsBlood Fvrqllyq722/7610 1:47 PM EDT Fsxso822812/27/2015 1:47 PM ITMZmponciqceo98.2 ??C (97.2 ??F)03/29/2015 12:37 PM ESTRespiratory Qqic5812 1:47 PM EDTOxygen Pacomjmrfh05%03/29/2015 1:54 PM ESTInhaled Oxygen Concentration--Zxgsyh54.2 kg (190 lb)12/27/2015 1:47 PM EDT patient mdkkgmNzqfvo254.6 cm (5' 6 )12/27/2015 1:47 PM EDTpatient statedBody Mass Index30.6712/27/2015 1:47 PM EDT Plan of Treatment Not on file Insurance Care Teams Team MemberRelationshipSpecialtyStart DateEnd Santi Malagon MD [address] [place] [address] PCP - General05/18/14
--- OUTSIDE RECORDS SUMMARY | 2025-01-19 10:46 | XMS_ITS | Clinical Summary ---
Author Organization The [facility] Address [address] [place] [address] Care Team Providers Care End Packer Name Role Phone Santi Malagon MD Primary Care Provider [phone] Allergies Active AllergyReactionsCriticalityNoted DateCommentsAtorvastatinSwelling 08/16/20158668Mgohnyevct-Hmufjtq-Shyzrvpv37/17/5543Kqkqdiz-Qjcbljdckr-Tfa-Caff 08/23/2014MetoprololDizziness,Cdplsrak50/25/2016 Medications MedicationSigDispense QuantityRefillsLast FilledStart DateEnd DateStatus aspirin 81 mg EC tablet Take 1 tablet every day by oral route.Active buPROPion XL (Wellbutrin XL) 300 mg 24 hr tablet Take 1 tablet by mouth in the morning.Active FeroSuL 325 mg (65 mg iron) tablet Take 1 tablet by mouth in the morning and at bedtime.01/28/2022ctive cholecalciferol, vitamin D3, 50 mcg (2,000 unit) capsule Take 1 capsule by mouth in the morning.Active zinc sulfate (ZINC-15 ORAL) Take by mouth.Active ascorbic acid (Vitamin C) 100 mg tablet Take 100 mg by mouth in the morning.Active rosuvastatin (Crestor) 10 mg tablet Indications:Coronary artery disease, unspecified vessel or lesion type, unspecified whether angina present, unspecified whether picayune or transplanted heartTake 1 tablet (10 mg) by mouth at bedtime. 90 tablet ctive carvedilol (Coreg) 3.125 mg tablet Indications:Essential hypertensionTake 1 tablet (3.125 mg) by mouth with breakfast and with evening meal. 180 tablet ctive diclofenac (Voltaren) 75 mg EC tablet Take 75 mg by mouth in the morning and at bedtime.11/28/2022ctive Active Problems ProblemNoted DateDiagnosed DateAllergic towmqtrw79ortic valve itoslptapeidx05ardiovascular stress test zzamzyse12/04/2023 12/25/2022hest painoronary kjpywdrriabxsqbp10/04/2023 12/25/20228696Eqrbdmq49EdemaIrritable bowel okbkbajj583251Ghbzsinoatcseny13/04/202310/04/2023Elective procedure for unacceptable cosmetic ntooapfwqy37Other plastic surgery for unacceptable cosmetic bnzqyixtbc10 Family History Medical HistoryRelationNameCommentsAortic aneurysmBrotherHyperlipidemiaBrother Aortic aneurysmFatherStrokeMothercarotid artery stenosisMotherRelationNameStatus CommentsBrotherFatherMother Social History Tobacco UseTypesPacks/DayYears UsedDateSmoking Tobacco: FormerCigarettesQuit: 2000Smokeless Tobacco: NeverAlcohol UseStandard Drinks/WeekCommentsYes0 (1 standard drink = 0.6 oz pure alcohol)occasionalUT Safety & EnvironmentAnswerDate RecordedFear of Current or Ex-PartnerNot on file05/15/2023Emotionally AbusedNot on file05/15/2023hysically AbusedNot on file05/15/2023Sexually AbusedNot on file05/15/2023hysically or Sexually AbusedNot on file05/15/2023Comments UnknownSex and Gender InformationValueDate RecordedSex Assigned at BirthFemale 12/15/2024 10:57 AM EDTLegal KhoWkbvla56/29/2022 9:02 PM EDTGender Identity Myhfzr4212/15/2024 10:57 AM EDTSexual OrientationHeterosexual or Straight 12/15/2024 10:57 AM EDT Last Filed Vital Signs Vital SignReadingTime TakenCommentsBlood Slyogyjq252/7512/25/2022 10:15 AM EDT Rahmk619812/25/2022 10:15 AM EDTTemperature--Respiratory Rate--Oxygen Saturation 96%12/25/2022 10:15 AM EDTInhaled Oxygen Concentration--Nyrmlu05.3 kg (208 lb) 12/25/2022 10:15 AM XRASiofxq680.6 cm (5' 6 )12/25/2022 10:15 AM EDTBody Mass Index33.5712/25/2022 10:15 AM EDT Plan of Treatment DateTypeDepartmentCare Team (Latest Contact Info)Fkkpxnpgtyz58/12/2025 11:30 AM ESTOffice Visit [facility] [address] [place] [address] Jacquelyn Knight MD [address] [facility] [place] [address] Health MaintenanceDue DateLast DoneCommentsCT Vznlxxaqoaem22/12/1954Colonoscopy 1953olorectal Cancer Ddvbjmurl08/12/1954FIT-DNA1953FIT1955 FOBT1953Medicare Annual Wellness (AWV)1955 8469Trkmwxygtqdon02/12/1954 Depression Gfibejten36/12/4455Fnuxngzdw57/12/1994Fall Risk Fxchkqwph11/12/2019 Pneumococcal Vaccine: 50+ Years (3 of 3 - PCV20 or PCV21), 12/24/2015COVID-19 Vaccine (1 - season)2024Influenza Vaccine (#1) /06/2023, 01/05/2022, 03/26/2021, Additional history existsAdult Zaiqtqo83/12/2016Zoster QvxytkkvVejewbxmi93/28/2018, 10/10/2017HIB VaccinesAged OutNo longer eligible based on patient's age to complete this topic HPV VaccinesAged OutNo longer eligible based on patient's age to complete this topicIPV VaccinesAged OutNo longer eligible based on patient's age to complete this topicMeningococcal B VaccineAged OutNo longer eligible based on patient's age to complete this topicMeningococcal VaccineAged OutNo longer eligible based on patient's age to complete this topicRotavirus VaccinesAged OutNo longer eligible based on patient's age to complete this topic Insurance Care Teams Team MemberRelationshipSpecialtyStart DateEnd Santi Malagon MD [address] [facility] [place] [address] [facility] - Tyunrzm55/4/23
--- OUTSIDE RECORDS SUMMARY | 2025-01-19 10:46 | XMS_ITS | Patient Health Record ---
Author Organization The [facility] [place] Address [address] [place] [address] Care Team Providers Care Chicken And Fish Cleaner Name Role Phone Vesna Paul Primary Care Provider [phone] Allergies Allergen (clinical drug ingredient) Drug/Non Drug Allergy documented on EMR Reaction Allergy Type Onset Date Status FiorinalloopyDrug AllergyActive Results Component Value Reference Range Notes CBC AUTO DIFF Reviewed date:12/18/2024 02:28:06 PM Interpretation: Performing Lab: Notes/Report: [facility] , White Blood Count 4.7 4.0-11.0 10 3/uL Red Blood Count4.234.20-5.40 10 6/mYOwvfnvmgtw25.712.0-16.0 g/mZSjsvdzyjdv28.0 36.0-48.0 %Mean Corpuscular Pzydpk30.281.0-99.0 fLMean Corpuscular Hemoglobin 30.026.7-34.0 pgMean Corpuscular HGB Conc32.629.9-35.2 g/dLRed Cell Distribution Width13.211.0-15.0 %Platelet Ckphx460109-800 10 3/uLMean Platelet Volume9.29.5- 13.5 fLNeutrophils Percent Auto61.743.0-75.0 %Lymphocytes Percent Auto25.720.5- 60.0 %Monocytes Percent Auto8.41.7-12.0 %Eosinophils Percent Auto3.60.9-7.0 % Basophils Percent Auto0.40.2-2.0 %Immature Granulocytes Pct Auto0.20.0-0.5 % Neutrophils Absolute Auto2.91.4-6.5 10 3/uLLymphocytes Absolute Auto1.21.2-3.8 10 3/uLMonocytes Absolute Auto0.40.3-0.8 10 3/uLEosinophils Absolute Auto0.20.0- 0.7 10 3/uLBasophils Absolute Auto0.00.0-0.1 10 3/uLImmature Granulocytes Abs Auto0.010.00-0.03 10 3/uLPerforming Lab:see noteML - [facility] LB GLYCOHEMOGLOBIN A1C Reviewed date:12/18/2024 02:28:06 PM Interpretation: Performing Lab: Notes/Report: [facility] ,Glycohemoglobin A1C5.14.5-6.2 % ADA RECOMMENDED LIMIT 4.0 - 6.0 ADA THERAPEUTIC TARGET < 7.0 ACTION SUGGESTED > 7.0 Estimated Average Hwbysex217Jqwrluvnke Lab:see note - [facility] LB LIPID PROFILE Reviewed date:12/18/2024 02:28:06 PM Interpretation: Performing Lab: Notes/Report: [facility] ,Iitzmzejjbnpp07<=150 mg/qTEvoxefbvnmu223<=200 mg/dLHDL Kijwqcsudfg4671-64 mg/dL > or =60 mg/dl - LOW CARDIOVASCULAR RISK <40 mg/dl - HIGH CARDIOVASCULAR RISK LDL Cholesterol Ypnclcacyb82.2 <100 mg/dl OPTIMAL 100-129 mg/dl NEAR OR ABOVE OPTIMAL 130-159 mg/dl BORDERLINE HIGH 160-189 mg/dl HIGH >190 mg/dl VERY HIGH VLDL ROCJWYMYVTA34.8Chol HDL Ratio2.8 3.3 - 4.4 LOW RISK 4.4 - 7.1 AVERAGE RISK 7.1 - 11.0 MODERATE RISK >11.0 HIGH RISK Performing Lab:see note - [facility] LBPROF 14(COMP METB) Reviewed date:12/18/2024 02:28:06 PM Interpretation: Performing Lab: Notes/Report: [facility] ,Ozyzue792562-937 mmol/LPotassium4.53.5-5.1 mmol/ZHbdzstub22506-993 mmol/LCarbon Zfrquca43.221.0-32.0 mmol/LAnion Gap8.1Rpntrrg9985-466 mg/dLBlood Urea Nitrogen 15.07.0-18.0 mg/dLCreatinine0.770.55-1.02 mg/dLEstimated GFR ( Thi>60 >=60 mL/min/1.73m 2Estimated GFR (Non- Roula>60>=60 mL/min/1.73m 2BUN Creatinine Ratio19.7Uhypotz0.88.5-10.1 mg/dLBilirubin Total0.40.2-1.0 mg/dL Aspartate Amino Ieniblqoncw2479-34 U/LAlanine Bbdvqqusgqkrsqty6054-05 U/L Alkaline Awbenvbvsay42803-735 U/LTotal Protein7.06.4-8.2 g/dLAlbumin Level3.5 3.4-5.0 g/dLGlobulin3.5Albumin Globulin Ratio1.0Performing Lab:see noteML - [facility] LBXR DEXA axial skeleton Reviewed date:03/18/2024 06:03:47 PM Interpretation: Performing Lab: Notes/Report: Source Facility: [place] [address] XRay Report Signed Patient: JOHANNY DALTON MR#: [id number] : 1955 Acct:[id number] Age/Sex: 68 / F ADM Date: 03/18/24 Loc: CT Attending Dr: Sukhjinder Quintero M.D. Ordering Physician: Sukhjinder Quintero M.D. Date of Service: 03/18/24 Procedure(s): XR DEXA axial skeleton Accession Number(s): [id number] cc: Sukhjinder Quintero M.D. [place] [address] Patient Name: JOHANNY DALTON MRN: [id number] date: 1955 Sex: F Assigned Patient Location: CT Current Patient Location: CT Accession/Order Number: [id number] Exam Date: 03/18/2024 08:55 Report Date: 03/18/2024 [...] prevention and treatment of osteoporosis. Osteoporos Int. 2021;33(10):1110-2603. doi: 10.1007/s69480-406-19929-a. Epub 2021Jul 19. Erratum in: Osteoporos Int. 2021Oct 18;: PMID: 88121646; PMCID: [id number]. Electronically authenticated by: JOAQUIN ROME Date: 03/18/2024 14:28 Dictated By: Joaquin Rome M.D. Signed By: 03/18/24 1431 DD/ 1428 TD/TT: Project Program Manager:CT lung screening low-dose Reviewed date:03/20/2024 08:41:15 PM Interpretation: Performing Lab: Notes/Report: Source Facility: [place] [address] CT Scan Report Signed Patient: JOHANNY DALTON MR#: [id number] : 1955 Acct:[id number] Age/Sex: 68 / F ADM Date: 03/18/24 Loc: CT Attending Dr: Sukhjinder Quintero M.D. Ordering Physician: Sukhjinder Quintero M.D. Date of Service: 03/18/24 Procedure(s): CT lung screening low-dose Accession Number(s): [id number] cc: Sukhjinder Quintero M.D. [place] [address] Patient Name: JOHANNY DALTON MRN: [id number] date: 1955 Sex: F Assigned Patient Location: CT Current Patient Location: Accession/Order Number: [id number] Exam Date: 03/18/2024 08:49 Report Date: 03/19/2024 [...] Dictated By: Joaquin Rome M.D. Signed By: 03/19/24955 DD/ 2 TD/TT: Project Program Manager:MM tomosynthesis screening BI Reviewed date:05/25/2024 07:40:23 PM Interpretation: Performing Lab: Notes/Report: Source Facility: [place] [address] Mammography Report Signed Patient: JOHANNY DALTON MR#: [id number] : 1955 Acct:[id number] Age/Sex: 68 / F ADM Date: 05/24/24 Loc: MAMMO Attending Dr: Sukhjinder Quintero M.D. Ordering Physician: Sukhjinder Quintero M.D. Results: Date of Service: 05/24/24 Follow Up: Procedure(s): MM tomosynthesis screening BI Accession Number(s): [id number] cc: Sukhjinder Quintero M.D. Patient Name: JOHANNY DALTON MR#: [id number] : 1955 Exam Date: 05/24/2024 Ordering Doctor: [...] leukemia cancer at age 63. LOCATION: [facility] BREAST COMPOSITION: There are scattered areas of [...] Signed By: 05/25/24 1214 DD/ 1213 TD/TT: Project Program Manager:LIZZY T3 Reviewed date:12/18/2024 02:28:06 PM Interpretation: Performing Lab: Notes/Report: [facility] ,Free T31.932.18-3.98 pg/mLPerforming Lab:see noteML - [facility] LB T4 Reviewed date:12/18/2024 02:28:06 PM Interpretation: Performing Lab: Notes/Report: [facility] ,T4 Thyroxine7.904.80-13.90 ug/dLPerforming Lab:see noteML - [facility] LBTSH Reviewed date:12/18/2024 02:28:06 PM Interpretation: Performing Lab: Notes/Report: [facility] ,Thyroid Stimulating Hormone2.3380.358-3.740 uIU/mLPerforming Lab:see noteML - [facility] LBOccult Blood* Reviewed date:12/21/2024 05:04:38 PM Interpretation: Performing Lab: Notes/Report: [facility] ,Occult BloodPositivePerforming Lab:see noteML - [facility] LB Reason For Referral Diagnosis 1 Occult blood positiv e stool (R19.5) Referral Organization [facility] Medicine Referring Provider First Name Paul Referring Provider Last Name Vesna Referring Provider Speciality Family Med chica Referred Provider Santy Villagran Referred Provider Specialty General Surg kathya Referral Priority Routine Medications Medication SIG (Take, Route, Frequency, Duration) Notes Start Date End Date Status Cephalexin 500 MG 2 capsule Orally twice daily; Duration: 10 days ActiveTriamcinolone Acetonide 0.1 %1 application Externally Twice a day; Duration: ctiveTriamcinolone Acetonide 0.1 %1 application Externally Twice a day; Duration: ctiveVitamin C 500 MGas directed OrallyActiveCarvedilol 3.125 mgTAKE 1 TABLET TWICE DAILY WITH FOOD; Duration: 90 ActiveRosuvastatin Calcium 10 mgTAKE 1 TABLET EVERY DAY; Duration: 90Active FeroSul 325 (65 Fe) MGtake 1 tablet by mouth twice a day; Duration: 30 days ActiveAspirin 81 81 MG1 tablet Orally Once a dayActiveVitamin D (Cholecalciferol) 50 MCG (2000 UT)1 capsule Orally Once a dayActiveZinc 100 MG1 tablet Orally Once a dayActiveCitracal Plus -as directed OrallyActivebuPROPion HCl ER (XL) 300 mgTAKE 1 TABLET BY MOUTH IN THE MORNING; Duration: 90 daysActive Diclofenac Sodium 75 mgTAKE 1 TABLET BY MOUTH TWICE DAILY; Duration: 30Active Immunizations Vaccine Route Administration Date Status Comme nts Flu, Fluad (83154) 65 yrs + High Dose Seasonal (8313-5330) Unknown 12/26/2023 Administered Pneumococcal (Pneumovax 23)Mdcdgsa6010/12/2017AdministeredPneumococcal (Prevnar 13)Mqgkmnz8412/24/2015Administered Social History Tobacco Use: Social History Observation Description Date Details (start date - stop date) Former Smoker 03/24/1976 - 03/24/1999 Tobacco Use/Smoking Question Answer Notes Patient is a former smoker When did you start smoking?03/24/1976When did you stop smoking?03/24/1999Alcohol Screen (Audit-C) Question Answer Notes Did you have a drink containing alcohol in the p ast year? No Znrpdd7OdskvouqklgljxWofdskthGIPCM-H (Standard) Question Answer Notes Did you have a drink containing alcohol in the p ast year? No Udlous4PirfjedaxatrfvScdolgft Problems Problem Type SNOMED Code ICD Code Onset Dates Problem Status W/U Status Risk Notes Problem Hyperlipidemia (35783770) Hyperlipidemia, unspecified (E78.5) ActiveconfirmedProblemCervical radiculopathy (49667744)Cervical radiculopathy (M54.12)ActiveconfirmedProblemObesity (022699594)Obesity (E66.9)Activeconfirmed ProblemHypothyroid (01640199)Hypothyroid (E03.9)ActiveconfirmedProblemOsteopenia (366122873)Osteopenia (M85.80)ActiveconfirmedProblemWeight gain (845974383) Weight gain (R63.5)ActiveconfirmedProblemIrritable bowel syndrome (91525286) Irritable bowel syndrome (K58.9)ActiveconfirmedProblemContact dermatitis (67946584)Contact dermatitis (L25.9)ActiveconfirmedProblemStreptococcal sore throat (disorder) (47929817)Strep pharyngitis (J02.0)ActiveconfirmedProblem Aortic valve regurgitation (17817948)Aortic valve regurgitation (I35.1)Active confirmedProblemEmphysema (27594168)Emphysema (J43.9)ActiveconfirmedProblem Depression (442543872)Depression (F32.A)Activeconfirmed Vital Signs Blood pressure diastolic 72 mm Hg 03/11/2024 Qddikp73 in03/11/2024lood pressure uywmqjij000 mm Hg03/11/20241516Xkmhqs928.0 lbs 03/11/2024BMI30.18 kg/m203/11/2024 Encounters Encounter Location Date Provider Diagnosis [facility] [address] [place] [address] 05/25/2024 Paul Quintero [facility] [place] [address] 08/20/2024Paul [facility] [place] [address]/[facility] [place] [address]/Doug Hoy Hypothyroid E03.9[facility] [facility] [place] [place] [address]/Doug HoyOccult blood positive stool R19.5[facility] [facility] [place] [address]/oug Hoy Osteopenia M85.80 and Former smoker Z87.891[facility] [facility] [place] [address]/oug [facility] [facility] [place] [address]/oug [facility] [facility] [place] [address]/ Paul [facility] [place] [facility] [place] [address] 03/11/2024oug HoyEncounter for Medicare annual wellness exam Z00.00 Assessments Encounter Date Diagnosis (ICD Code) Assessment Notes Treatment Notes Treatment Clinical Notes Section Notes 03/11/2024 Encounter for Medicare annual we llness exam (ICD-10 - Z00.00) 03/11/2024Osteopenia (ICD-10 - M85.80)03/11/2024Former smoker (ICD-10 - Z87.891) 12/15/2024Well adolescent visit (ICD-10 - Z00.3)12/18/2024Hypothyroid (ICD-10 - E03.9)12/21/2024Occult blood positive stool (ICD-10 - R19.5) Plan Of Treatment Pending Test Test Name Order Date FECAL OCCULT BLOOD 12/15/2024 CT Lung Screen Low Dose 03/11/2024 THYROID PROFILE WITH TSH 05/29/2023 THYROID PANEL (T4/TSH/FREE T3) 5 THYROID PANEL (T4/TSH/FREE T3) 5 DEXA BONE DENSITY 03/11/2024 Insurance Providers Payer Name Payer Address Payer Phone Subscriber Number Group Number Insured Name Patient Relationship to Insured Coverage Start Date Coverage End Date [place] [address] [place] [address] [id number] Sheree Dalton - patient is the [facility] [place] SUPPLEMENTPO [address] [place] [id number], MarthaSelf - patient is the insured Medications Administered Medication Instructions Date of Administration Dosage Notes Kenalog-40 mg80 Medical (General) History Medical History History ICD Code Osteopenia M85.80 Obesity E66.9 Cervical radiculopathy M54.12 Emphysema J43.9 Depression F32.A Aortic valve regurgitation I35.1 Irritable bowel syndrome K58.9 Abnormal stress test R94.39 Surgical History Surgery Date(Month/Year) colonoscopy 03/27/2015 Hysterectomy Total Left HipAbdominoplasty
--- OUTSIDE RECORDS SUMMARY | 2025-01-19 10:46 | XMS_ITS | Clinical Summary ---
Author Organization [facility] Address [address] [place] [address] Care Team Providers Care Gold Blower Name Role Phone Unavailable Primary Care Provider Unavailabl e Social History Tobacco UseTypesPacks/DayYears UsedDateSmoking Tobacco: Never Assessed CommentsUnknownSex and Gender InformationValueDate RecordedSex Assigned at Not on fileLegal RsyFzcnwt53/15/2023 6:49 PM EDTGender IdentityNot on fileSexual OrientationNot on file Plan of Treatment Not on file
[2025-01-19 12:51] LABS: Free T3 2.50 pg/mL (2.18-3.98); Thyroid Stimulating Hormone 1.936 uIU/mL (0.358-3.740)
== END 2025-01-19 10:44 | disposition home or self-care (01) ==
PROVIDERS: PCP Family Medicine; Visit Provider Family Medicine
DX: E03.9 Hypothyroidism, unspecified (principal)
CPT/HCPCS: 36415; 84436; 84443; 84481

== ENCOUNTER 2025-02-09 10:00 | Outpatient (OUT) | payer MEDICARE, OTHER, SELFPAY ==
--- OUTSIDE RECORDS SUMMARY | 2025-02-02 11:30 | XMS_ITS | Encounter Summary ---
Author Organization [facility] Address [address] [place] [address] Care Team Providers Care Operation Research Analyst Name Role Phone Santi Malagon MD Primary Care Provider [phone] Reason for Referral * Imaging (Routine) - Pending ReviewSpecialtyDiagnoses / ProceduresReferred By ContactReferred To ContactCardiology Diagnoses Nonrheumatic aortic valve insufficiency GOLDSTEIN (dyspnea on exertion) Procedures Transthoracic echo (TTE) complete Jacquelyn Knight MD [address] [place] [address] Phone: tel: fax: Referral IDStatusReasonStart DateExpiration DateVisits RequestedVisits [id number] Review Perform Procedure Encounter Details DateTypeDepartmentCare Team (Latest Contact Info)Nnkazclwfea42/12/2025 11:30 AM ESTOffice Visit [facility] [place] [address] [place] [address] Jacquelyn Knight MD [address] [place] [address] Nonrheumatic aortic valve insufficiency (Primary Dx); Coronary arteriosclerosis; GOLDSTEIN (dyspnea on exertion) Social History Tobacco UseTypesPacks/DayYears UsedDateSmoking Tobacco: FormerCigarettesQuit: 2000Smokeless Tobacco: Never Tobacco Cessation:Counseling Given: Not Answered Alcohol UseStandard Drinks/WeekCommentsYes0 (1 standard drink = 0.6 oz pure alcohol)occasionalUT Safety & EnvironmentAnswerDate RecordedFear of Current or Ex-PartnerNot on file05/15/2023Emotionally AbusedNot on file05/15/2023hysically AbusedNot on file05/15/2023Sexually AbusedNot on file05/15/2023hysically or Sexually AbusedNot on file05/15/2023CommentsUnknownSex and Gender InformationValueDate RecordedSex Assigned at OmfkvPlrxkv06/24/2025 10:57 AM EDT Legal ReoGioumo18/29/2022 9:02 PM EDTGender YuqhouodJbblmf43/24/2025 10:57 AM EDTSexual OrientationHeterosexual or Ypyxspda51/24/2025 10:57 AM EDTdocumented as of this encounter Last Filed Vital Signs Vital SignReadingTime TakenCommentsBlood Iqrtnhtm536/ 11:52 AM EST Afskq469602/02/2025 11:52 AM ESTTemperature--Respiratory Rate--Oxygen Saturation 96%02/02/2025 11:52 AM ESTInhaled Oxygen Concentration--Rnuqik85.1 kg (181 lb) 02/02/2025 11:52 AM ZJWRvukcj607.6 cm (5' 6 )02/02/2025 11:52 AM ESTBody Mass Index29. 11:52 AM ESTdocumented in this encounter Functional Status * BPAnswerDate of KfevoxuzmmYvduyc508/6402/02/2025 11:52 AM Angie Mack MA * PulseAnswerDate of TpycuxobjzZtgbnd7906/12/2025 11:52 AM Angie Mack MA * Audit Alcohol ScreeningQuestionAnswerDate of AssessmentAuthorHow often do you have a drink containing alcohol? 11:53 AM Angie Mack MA * Patient PositionAnswerDate of VrxnmeadpfGfdwdpZkwdhuf05/12/2025 11:52 AM Angie Small MA * BPAnswerDate of BvieujtnwaBfwpau642/6402/02/2025 11:52 AM Angie Mack MA * PulseAnswerDate of EjrlxhafumNkjjqv6572/12/2025 11:52 AM Angie Mack MA * UrR6IetrkrZwap of XzlxswtrqfZvylfb3676/12/2025 11:52 AM Angie Mack MA * BP LocationAnswerDate of AssessmentAuthorLeft arm02/02/2025 11:52 AM Angie Small MA * Audit Alcohol ScreeningQuestionAnswerDate of AssessmentAuthorHow often do you have a drink containing alcohol? 11:53 AM Angie Mack MA * Patient PositionAnswerDate of XyoesijrwhVfcwsxOpdlxdh01/12/2025 11:52 AM Angie Small MA documented as of this encounter Progress Notes * Jacquelyn Knight MD - 02/02/2025 11:30 AM EST Images from the original note were not included. [facility] Cardiology Clinic Note Chief Complaint: Patient here for 2 year follow up. Patient state she feels alright, patient states she has notice an increase in in SOB/GOLDSTEIN going up and down steps/carrying things, heart burn, occasional dizziness/lightheaded with standing up quickly increased fatigue, trouble sleeping waking up during the night and unable to go back to sleep. Patient denies chest pain, leg swelling/pain, racing heart/palpitation, HPI: Ita Dalton is a 66 y.o. female with moderate coronary artery disease and mild aortic valve regurgitation here in routine follow-up Update 02/02/2025: Having progressively worsening exertional shortness of breath. No chest pain. Cardiology ROS: Review of Systems Constitutional: Positive for malaise/fatigue. Cardiovascular: Positive for dyspnea on exertion. Hematologic/Lymphatic: Bruises/bleeds easily. Gastrointestinal: Positive for heartburn. Neurological: Positive for dizziness and light-headedness. All other systems reviewed and are negative. Past Medical History She has a past medical history of Coronary artery disease and Heart valve disease. She has no past medical history of Hypertension. Surgical History She has a past surgical history that includes Cardiac catheterization; Replacement total hip lateral position; Abdominal surgery; and Hysterectomy. Social History She reports that she quit smoking about 25 years ago. Her smoking use included cigarettes. She has never used smokeless tobacco. She reports current alcohol use. She reports that she does not use drugs. Family History Family History Problem Relation Name Age of Onset Stroke Mother Other (carotid artery stenosis) Mother Aortic aneurysm Father Hyperlipidemia Brother Aortic aneurysm Brother Allergies Atorvastatin, Sohnxblkbm-styagwi-czzwldiz, Ixulnda-fqjhelkfri-nzn-caff, and Metoprolol Medications Current Outpatient Medications: ascorbic [...] mouth in the morning., Disp: , Rfl: diclofenac (Voltaren) 75 mg EC tablet, Take 75 mg by mouth in the morning and at bedtime., Disp: , Rfl: FeroSuL 325 mg (65 mg iron) tablet, Take 1 tablet by mouth in the morning and at bedtime., Disp: , Rfl: rosuvastatin (Crestor) 10 mg tablet, Take 1 tablet (10 mg) by mouth at bedtime., Disp: 90 tablet, Rfl: 3 zinc sulfate (ZINC-15 ORAL), Take by mouth., Disp: , Rfl: Last Recorded Vitals BP 103/64 (BP Location: Left arm, Patient Position: Sitting) Pulse 88 Ht 1.676 m (5' 6 ) Wt 82.1 kg (181 lb) SpO2 96% BMI 29.21 kg/m?? Physical Examination: GENERAL: alert and oriented x3, [...] as assessed by fractional flow reserve. 2. Inlp-kl-hqqlcblc disease of the left anterior descending and [...] motion likely related to bundle branch block. Normaldiastolic function. Right ventricle is normal in size and systolic function. No significant valvular abnormalities. Labs 01/2022: Cholesterol 141, HDL 44, triglycerides 100, LDL 77 Labs 05/31/2023: Total cholesterol 156, triglycerides 103, LDL 90.4, HDL 45 ALT is low, AST is normal Assessment: Coronary arteriosclerosis - Moderate per 2016 cath -obtuse marginal branch of the left circumflex. Aortic valve regurgitation - Mild per 2018 ECHO trivial 2020 Dyspnea on exertion Lightheadedness Dyslipidemia Plan: Continue optimal medical therapy for coronary artery disease including aspirin, moderate to high intensity statin therapy, a beta-tiffanie. Her LDL is above target; I recommend that she increase her Crestor to 20 mg a day and repeat a fasting lipid profile and liver function tests in 3 months Given the duration of time since her last cardiac catheterization, and her current symptoms, I haverecommended proceeding with a Lexiscan stress test Will repeat an echocardiogram Return to clinic in 4-6 months or sooner should problems arise Jacquelyn Knight MD, MPH, [facility], [facility], [facility] Interventional Cardiology Pager Email: [email or web address] documented in this encounter Plan of Treatment NameTypePriorityAssociated DiagnosesOrder ScheduleHepatic function panelLab Routine Coronary arteriosclerosis Expected: 02/02/2025 (Approximate), Expires: 02/02/2026Lipid panelLabRoutine Coronary arteriosclerosis Expected: 02/02/2025 (Approximate), Expires: 02/02/2026Transthoracic echo (TTE) completeEchocardiographyRoutine Nonrheumatic aortic valve insufficiency GOLDSTEIN (dyspnea on exertion) Expected: 02/02/2025 (Approximate), Expires: 02/02/2027Lexiscan Stress Myocardial Perfusion ImagingCardiac ServicesRoutine Coronary arteriosclerosis GOLDSTEIN (dyspnea on exertion) Expected: 02/02/2025 (Approximate), Expires: 02/02/2027documented as of this encounter Visit Diagnoses Diagnosis Nonrheumatic aortic valve insufficiency- Primary Coronary arteriosclerosis Coronary atherosclerosis of unspecified type of vessel, kalispel or graft GOLDSTEIN (dyspnea on exertion) Other dyspnea and respiratory abnormality documented in this encounter Care Teams Team MemberRelationshipSpecialtyStart DateEnd Date Santi Malagon MD [facility] [facility] [address] PCP - Cpsjzij00/4/23documented as of this encounter
--- NOTE | 2025-02-09 09:30 | NM_ITS ---
Patient Name: JOHANNY CRISTINA MR#: [id number] : 1955 Exam Date: 02/09/2025 Ordering Doctor: DR ZAC HOWARD M.D. RADIOLOGY REPORT PROCEDURE: NM SOURAV PERF SPECT REST STR COMPARISON: None. INDICATIONS: DYSPNEA ON EXERTION, CORONARY ARTERIOSCLEROSIS TECHNIQUE: Exam Description: Stress/Rest one day protocol gated SPECT Rest Imagin.4 mCi Tc-99m Cardiolite IV on 02/09/2025 Stress Imaging 30.3 mCi Tc-99m Cardiolite IV on 02/09/2025 Exercise Protocol: 0.4 mg Lexiscan given IV Heart Rate (bpm): Rest: 60 Max: 93 PMHR: 62 Blood Pressure: Rest: 122/60 Max: 130/66 Symptoms: Rest and peak stress ECG findings were pending, and the exercise portion of the study was pending per attending physician [facility]. For more details, please see separate cardiac stress test report. FINDINGS: QUALITY OF STUDY: Good PERFUSION DEFECT: LOCATION: N/A SIZE: N/A SEVERITY: N/A TYPE: N/A WALL MOTION: Normal wall motion LV SIZE: 69 mL. TID / TCD: 0.8 LVEF: Calculated EF 78%. SUMMARY: Myocardial perfusion imaging study is normal CONCLUSION: 1. Myocardial perfusion is normal with diaphragmatic attenuation 2. Global left ventricular systolic function is hyperdynamic; EF 78% 3. No significant transient ischemic dilatation Dictated by: Zac Howard M.D. on 02/09/2025 at 16:04 Approved by: Zac Howard M.D. on 02/09/2025 at 16:06
--- OUTSIDE RECORDS SUMMARY | 2025-02-09 10:16 | XMS_ITS | Clinical Summary ---
Author Organization [facility] Healthcare Address [address] [place] [address] Care Team Providers Care Fish Farmer Name Role Phone Unavailable Primary Care Provider Unavailabl e Social History Tobacco UseTypesPacks/DayYears UsedDateSmoking Tobacco: Never Assessed CommentsUnknownSex and Gender InformationValueDate RecordedSex Assigned at Not on fileLegal TaaPzlhqu17/15/2023 6:49 PM EDTGender IdentityNot on fileSexual OrientationNot on file Plan of Treatment Not on file
--- OUTSIDE RECORDS SUMMARY | 2025-02-09 10:16 | XMS_ITS | Clinical Summary ---
Author Organization [facility] Address [address] [place] [address] Care Team Providers Care Logging Engineer Name Role Phone Santi Malagon MD Primary Care Provider [phone] Allergies Active AllergyReactionsCriticalityNoted DateCommentsAtorvastatinSwelling 08/16/20159466Mrmkmgylzg-Nuljzap-Cnsalonu53/17/1641Thwmqsg-Swxlqdcdcc-Cwi-Caff 08/23/2014MetoprololDizziness,Tzzcgyxt94/25/2016 Medications MedicationSigDispense QuantityRefillsLast FilledStart DateEnd DateStatus aspirin [...] type, unspecified whether angina present, unspecified whether [place] or transplanted heartTake 1 tablet (10 mg) by mouth at bedtime. 90 tablet ctive carvedilol (Coreg) 3.125 mg tablet Indications:Essential hypertensionTake 1 tablet (3.125 mg) by mouth with breakfast and with evening meal. 180 tablet ctive diclofenac (Voltaren) 75 mg EC tablet Take 75 mg by mouth in the morning and at bedtime.11/28/2022ctive rosuvastatin (Crestor) 20 mg tablet Indications:Coronary arteriosclerosisTake 1 tablet (20 mg) by mouth at bedtime. 90 tablet ctive Active Problems ProblemNoted DateDiagnosed DateBMI 29.0-29.9,adult01/31/2025ervical sdazotydwfmhp36/10/2025ontact mtfkvzvaco14/10/2685Zubivnjtgr14/10/2025 Emphysema, tqheuwrqkmo61/10/6983Uudtmjjdyoulye47/10/2312Kaswiwxkvwj68/10/2025 Asusklp4801/31/2025Occult blood in wbiiko0204/02/20241456Bjoxtxdobk54/10/2025Overweight 01/31/2025Streptococcal pwatowivozs82/10/2025Weight gain01/31/2025llergic kgefmzig42ortic valve bhknsdfcbjakc93 Cardiovascular stress test gdpmkzky47hest pain12/25/2022 12/25/2022oronary gkxirmklqcahlgdr74yspnea12/25/2022 12/25/20223804Voeci85Irritable bowel Rxbnkivhrokrrod53Elective procedure for unacceptable cosmetic wujtdnabno26Other plastic surgery for unacceptable cosmetic fuywqldhgw79 Encounters DateTypeDepartmentCare AduiVkkbwqlfqpa26/12/2025 11:30 AM ESTOffice Visit [facility] [address] [address] Jacquelyn Knight MD Nonrheumatic aortic valve insufficiency (Primary Dx); Coronary arteriosclerosis; GOLDSTEIN (dyspnea on exertion)from Last 3 Months Family History Medical HistoryRelationNameCommentsAortic aneurysmBrotherHyperlipidemiaBrother Aortic aneurysmFatherStrokeMothercarotid artery stenosisMotherRelationNameStatus CommentsBrotherFatherDeceasedMotherDeceased Social History Tobacco UseTypesPacks/DayYears UsedDateSmoking Tobacco: FormerCigarettesQuit: 2000Smokeless Tobacco: Never Tobacco Cessation:Counseling Given: Not Answered Alcohol UseStandard Drinks/WeekCommentsYes0 (1 standard drink = 0.6 oz pure alcohol)occasionalUT Safety & EnvironmentAnswerDate RecordedFear of Current or Ex-PartnerNot on file05/15/2023Emotionally AbusedNot on file05/15/2023hysically AbusedNot on file05/15/2023Sexually AbusedNot on file05/15/2023hysically or Sexually AbusedNot on file05/15/2023CommentsUnknownSex and Gender InformationValueDate RecordedSex Assigned at EfpuuLsqkbo11/24/2025 10:57 AM EDT Legal EzqUtgvdp03/29/2022 9:02 PM EDTGender EzmhprzpWqhfwi91/24/2025 10:57 AM EDTSexual OrientationHeterosexual or Cvkkwxxy32/24/2025 10:57 AM EDT Last Filed Vital Signs Vital SignReadingTime TakenCommentsBlood Iuzgrriy923/6402/02/2025 11:52 AM EST Cgrfi357802/02/2025 11:52 AM ESTTemperature--Respiratory Rate--Oxygen Saturation 96%02/02/2025 11:52 AM ESTInhaled Oxygen Concentration--Iowyfy58.1 kg (181 lb) 02/02/2025 11:52 AM VLHFkhpqw670.6 cm (5' 6 )02/02/2025 11:52 AM ESTBody Mass Index29.21104/04/2024 11:52 AM EST Plan of Treatment Health MaintenanceDue DateLast DoneCommentsCT Htesmqbgmjzd19/12/1954FIT-DNA 1955FIT1955FOBT1955Medicare Annual Wellness (AWV)1955 Loqyczytmwpwk77/12/1954epression Kcadssjub46/12/2642Lhvgynfgn00/12/1994Fall Risk Zssfjeipb60/12/2019COVID-19 Vaccine ( season)2024 Ebzfwzczgel07/04/15961503/27/2015Colorectal Cancer Xhjovpion50/04/2026dult Thoaxnn70Zoster FubreonyJlctwqkbb60/28/2018, 10/10/2017 Influenza AxvazuhCuyrpeokb78/30/2025, 12/26/2023, 01/05/2022, Additional history existsPneumococcal Vaccine: 50+ QjusrNndrfzneu02/30/2025, 10/12/2017, 12/24/2015 HIB VaccinesAged OutNo longer eligible based on patient's age to complete this topicHPV VaccinesAged OutNo longer eligible based on patient's age to complete this topicIPV VaccinesAged OutNo longer eligible based on patient's age to complete this topicMeningococcal B VaccineAged OutNo longer eligible based on patient's age to complete this topicMeningococcal VaccineAged OutNo longer eligible based on patient's age to complete this topicRotavirus VaccinesAged Out No longer eligible based on patient's age to complete this topic [place] [address] Care Teams Team MemberRelationshipSpecialtyStart DateEnd Santi Malagon MD [address] [place] [address] [facility] - Jrhzwju91/4/23
--- OUTSIDE RECORDS SUMMARY | 2025-02-09 10:17 | XMS_ITS | Clinical Summary ---
Author Organization [facility] Address [address], [address] [place] [address] Care Team Providers Care Spindle Tester Name Role Phone Santi Malagon MD Primary Care Provider [phone] Allergies Active AllergyReactionsCriticalityNoted YvquCmyogrujLzulgxoune-Vli-Arar-Codeine 08/23/20144031WmhoagjbyjqjMektkdis82/25/0012YmqfankzphMdutuqsl26/25/2016 Medications MedicationSigDispense QuantityRefillsLast FilledStart DateEnd DateStatus Citalopram Hydrobromide (CELEXA PO) Take by mouthActive DICLOFENAC PO Take by mouthActive aspirin 81 MG tablet Take 81 mg by mouth dailyActive FLUARIX QUADRIVALENT 0.5 ML injection inject 0.5 milliliter aywwtuvmzandmql550/02/2016Active PREVNAR 13 SUSP inj inject 0.5 milliliter itejyremxzchibx832/02/2016Active Active Problems ProblemNoted DateDiagnosed DateElective procedure for unacceptable cosmetic mfnajegiqm01/01/2016Other plastic surgery for unacceptable cosmetic appearance 04/05/2015 Social History Tobacco UseTypesPacks/DayYears UsedDateSmoking Tobacco: FormerCigarettes0.820 08/25/1980 - 08/25/2000Alcohol UseStandard Drinks/WeekCommentsYes0 (1 standard drink = 0.6 oz pure alcohol)occasionalCommentsNoSex and Gender InformationValueDate RecordedSex Assigned at BirthNot on fileLegal SexFemale 05/03/2012 6:43 PM ESTGender IdentityNot on fileSexual OrientationNot on file Last Filed Vital Signs Vital SignReadingTime TakenCommentsBlood Crdlbmjv312/7610 1:47 PM EDT Uwoqq181612/27/2015 1:47 PM UTDYvikpmixfus61.2 ??C (97.2 ??F)03/29/2015 12:37 PM ESTRespiratory Xjbg7773 1:47 PM EDTOxygen Otwkfkmskn50%03/29/2015 1:54 PM ESTInhaled Oxygen Concentration--Hrlhmj25.2 kg (190 lb)12/27/2015 1:47 PM EDT patient mnpcbsAvxgdt179.6 cm (5' 6 )12/27/2015 1:47 PM EDTpatient statedBody Mass Index30.6712/27/2015 1:47 PM EDT Plan of Treatment Not on file Insurance Care Teams Team MemberRelationshipSpecialtyStart DateEnd Santi Malagon MD [address] [place] [address] PCP - General05/18/14
--- NOTE | 2025-02-09 11:17 | PC.NURSE ---
Patient tolerated Lexiscan stress test without problems. SOB with Lexiscan injection resolved prior to leaving the stress lab.
[2025-02-09] MEDS: REGADENOSON 0.4 MG/5 ML SYRINGE IV (11:20)
--- NOTE | 2025-02-09 12:49 | PM.STRESS ---
Stress Test Stress Test Requesting physician: Jacquelyn Knight Procedure: Lexiscan pharmacological stress test General Information: Reason for Stress Test: [Dyspnea on exertion] Cardiac History and Risk Factors: [Hypertension, obesity] Resting 12 - Lead Electrocardiogram: Sinus rhythm Premature ventricular complexes Abnormal ECG Stress Test: Protocol: [Lexiscan pharmacological] Exercise Capacity: [N/A] Blood Pressure Response: [N/A] Rhythm: [Sinus rhythm with occasional premature ventricular contractions] ST - Response: [No significant ST-T wave abnormalities] Patient Response: [No chest pain] Interpretation: 1. No ischemic EKG changes seen on Lexiscan pharmacological stress test 2. Premature ventricular complexes noted 3. Nuclear images are to be read, interpreted, and reported separately
--- NOTE | 2025-02-09 13:00 | CA_ITS ---
Patient Name: JOHANNY CRISTINA MR#: [id number] : 1955 Exam Date: 02/09/2025 Ordering Doctor: DR JACQUELYN HOWARD M.D. ECHOCARDIOGRAM REPORT PROCEDURE: CA ECHO DOPPLER COMPLETE INDICATIONS: Aortic insufficiency, hypertension COMPARISON: None. DESCRIPTION: COMPLETE ECHOCARDIOGRAM Real-time transthoracic echocardiography with 2D, M-mode, spectral and color flow Doppler performed. QUALITY: Technical quality was good. LEFT VENTRICLE: Normal chamber size. Normal left ventricular wall thickness. Calculated left ventricular ejection fraction is 72%. LV EF: Global left ventricular systolic function is hyperdynamic; visually estimated ejection fraction is 65-70%. No significant wall motion abnormalities. DIASTOLIC: Normal diastolic function. ATRIAL SEPTUM: Visually appears intact. LEFT ATRIUM: Normal chamber size. RIGHT ATRIUM: Normal chamber size. RIGHT VENTRICLE: Normal chamber size. Normal right ventricular systolic function. TRICUSPID VALVE: Normal mobility and thickness. No stenosis with mild regurgitation. No evidence of pulmonary hypertension. RVSP 33 mmHg MITRAL VALVE: Normal mobility and thickness. No evidence of mitral valve stenosis. There is no mitral annular calcification. Trivial mitral regurgitation. AORTIC VALVE: Normal trileaflet appearance. No visible sclerosis. Normal leaflet mobility. No evidence of aortic valve stenosis. Mild aortic regurgitation. AORTIC ROOT: Normal diameter and appearance. PULMONIC VALVE: Normal thickness and mobility. No stenosis. No regurgitation. PERICARDIUM: Anterior free space likely pericardial fat pad versus trivial effusion. IVC: Collapses with inspiration. IVC is normal in size. CONCLUSION: Global left ventricular systolic function is hyperdynamic; visually estimated ejection fraction of 65 to 70% Normal right ventricular size and systolic function Normal diastolic function The left atrium is normal in size Mild tricuspid regurgitation Mild aortic valve regurgitation Anterior free space; trivial effusion versus fat pad Adult Echocardiography Procedure Report Left Ventricle LVEDD (3.7 - 5.6 cm): 4.13 cm LVESD (2.2 - 4.0 cm): 3.18 cm LVIVS thickness (0.6 - 1.2 cm): 1.00 cm LVPW thickness (0.5 - 1.0 cm): 0.87 cm e': 0.13 m/s E - e': 4.39 LVOT Max Gradient: 11.90 mm[Hg] LVOT Area (cm2): 1.73 m/s Peak Velocity (LVOT): 1.73 m/s Mean Velocity (LVOT): 1.14 m/s LVOT Diameter 2.03 cm Left Ventricular Ejection Fraction: 71.67 % Left Atrium LA Volume Index (2D A2C): 35.86 ml/m2 Left Atrium Systolic Dimension: 3.87 cm Mitral Valve MV E to A Ratio: 0.62 MV Max Gradient: MV Mean Gradient: Mitral Valve A-Wave Peak Velocity: 0.94 m/s Mitral Valve E-Wave Peak Velocity: 0.59 m/s Cardiovascular Orifice Area: Right Ventricle RV Internal Diastolic Dimension: Aorta AO Root Diam: 3.31 cm Ascending Ao Diam: 3.49 cm Aortic Valve AoV Area (Peak Zeferino): 3.36 cm2, 3.36 cm2 AoV Area (VTI): 3.58 cm2, 3.58 cm2 Deceleration Mccone: 2.17 m/s2 Pressure Half-Time: 473.27 ms Peak Velocity(Antegrade Flow): 1.66 m/s Peak Gradient(Antegrade Flow): 11.06 mm[Hg] Mean Velocity(Antegrade Flow): 1.03 m/s Mean Gradient(Antegrade Flow): 5.05 mm[Hg] Velocity Time Integral: 36.38 cm Tricuspid Valve Peak Velocity (Regurgitant Flow): 2.76 m/s, 2.76 m/s Peak Velocity: Pulmonic Valve Mean Gradient: 2.12 mm[Hg] Mean Velocity: 0.66 m/s Peak Velocity: 1.12 m/s Peak Gradient: 4.98 mm[Hg] Right Atrium Right Atrium Systolic Pressure: 35.65 ml, 35.65 ml Dictated by: Jacquelyn Howard M.D. on 02/09/2025 at 15:58 Approved by: Jacquelyn Howard M.D. on 02/09/2025 at 16:02
== END 2025-02-09 10:01 | disposition home or self-care (01) ==
LOC: NM 10:00
PROVIDERS: PCP Family Medicine; Visit Provider Internal Medicine Interventional Cardiology
DX: I25.10 Atherosclerotic heart disease of native coronary artery without angina pectoris (principal); R06.09 Other forms of dyspnea; I35.1 Nonrheumatic aortic (valve) insufficiency
CPT/HCPCS: 78452; 93017; 93306; A9500; J2785

== ENCOUNTER 2025-02-15 13:39 | Outpatient (OUT) | payer MEDICARE, OTHER, SELFPAY ==
--- OUTSIDE RECORDS SUMMARY | 2025-02-02 11:30 | XMS_ITS | Encounter Summary ---
Author Organization [facility] Address [address] [place] [address] Care Team Providers Care Pharmaceutical Worker Name Role Phone Santi Malagon MD Primary Care Provider [phone] Reason for Referral * Imaging (Routine) - Pending ReviewSpecialtyDiagnoses / ProceduresReferred By ContactReferred To ContactCardiology Diagnoses Nonrheumatic aortic valve insufficiency GOLDSTEIN (dyspnea on exertion) Procedures Transthoracic echo (TTE) complete Jacquelyn Knight MD [address] [place] [address] Phone: tel: fax: Referral IDStatusReasonStart DateExpiration DateVisits RequestedVisits [id number] Review Perform Procedure Encounter Details DateTypeDepartmentCare Team (Latest Contact Info)Dmajfzpumsn33/12/2025 11:30 AM ESTOffice Visit [facility] [place] [address] [place] [address] Jacquelyn Knight MD [address] [place] [address] Nonrheumatic aortic valve insufficiency (Primary [...] file05/15/2023CommentsUnknownSex and Gender InformationValueDate RecordedSex Assigned at HgiegGkenbm24/24/2025 10:57 AM EDT Legal RlzThmgrt04/29/2022 9:02 PM EDTGender BxviextqRralgn57/24/2025 10:57 AM EDTSexual OrientationHeterosexual or Poclzmim58/24/2025 10:57 AM EDTdocumented as of this encounter Last Filed Vital Signs Vital SignReadingTime TakenCommentsBlood Qvrrsrme214/6402/02/2025 11:52 AM EST Cqzue365902/02/2025 11:52 AM ESTTemperature--Respiratory Rate--Oxygen Saturation 96%02/02/2025 11:52 AM ESTInhaled Oxygen Concentration--Wdxjdl77.1 kg (181 lb) 02/02/2025 11:52 AM WZLRedlkq202.6 cm (5' 6 )02/02/2025 11:52 AM ESTBody Mass Index29.21104/04/2024 11:52 AM ESTdocumented in this encounter Progress Notes * Jacquelyn Knight MD - 02/02/2025 11:30 AM EST Images from the original note were not included. [facility] Cardiology Clinic Note Chief Complaint: Patient here [...] Hyperlipidemia Brother Aortic aneurysm Brother Allergies Atorvastatin, Dehptxhbje-ggftfab-xgipynnm, Iiaphzm-lrpjjjahde-hcg-caff, and Metoprolol Medications Current Outpatient Medications: ascorbic [...] as assessed by fractional flow reserve. 2. Ogjg-yf-djlrozhj disease of the left anterior descending and [...] circumflex. Aortic valve regurgitation - Mild per 2017 ECHO trivial 2020 Dyspnea on exertion Lightheadedness [...] should problems arise Jacquelyn Knight MD, MPH, [facility], [facility], [facility] Interventional Cardiology Pager Email: [email or web address] documented in this encounter Plan of Treatment NameTypePriorityAssociated DiagnosesOrder ScheduleHepatic function panelLab Routine Coronary arteriosclerosis Expected: 02/02/2025 (Approximate), Expires: 02/02/2026Lipid panelLabRoutine Coronary arteriosclerosis Expected: 02/02/2025 (Approximate), Expires: 02/02/2026Lexiscan Stress Myocardial Perfusion ImagingCardiac ServicesRoutine Coronary arteriosclerosis GOLDSTEIN (dyspnea on exertion) Expected: 02/02/2025 (Approximate), Expires: 02/02/2027documented as of this encounter Results * Transthoracic echo (TTE) complete (02/09/2025 4:16 PM EST)Anatomical Region LateralityModalityUltrasound Narrative Authorizing ProviderResult TypeResult StatusEhab Knight [facility] ECHO PROCEDURES Final Result documented in this encounter Visit Diagnoses Diagnosis Nonrheumatic aortic valve insufficiency- Primary Coronary arteriosclerosis Coronary atherosclerosis of unspecified type of vessel, [place] or graft GOLDSTEIN (dyspnea on exertion) Other dyspnea and respiratory abnormality documented in this encounter Care Teams Team MemberRelationshipSpecialtyStart DateEnd Date Santi Malagon MD [address] [id number] PCP - Slqoqdd92/4/23documented as of this encounter
--- OUTSIDE RECORDS SUMMARY | 2025-02-15 13:43 | XMS_ITS | Clinical Summary ---
Author Organization [facility] Address [address], [address] [place] [address] Care Team Providers Care [employer]ator Name Role Phone Santi Malagon MD Primary Care Provider [phone] Allergies Active AllergyReactionsCriticalityNoted FskoMkqxtbknKvzdeamtvh-Ftn-Lixo-Codeine 08/23/20145269YsaxxkrwrmzpSjvixdxo97/25/2862CuwckodtuhOkswklsh75/25/2016 Medications MedicationSigDispense QuantityRefillsLast FilledStart DateEnd DateStatus Citalopram Hydrobromide (CELEXA PO) Take by mouthActive DICLOFENAC PO Take by mouthActive aspirin 81 MG tablet Take 81 mg by mouth dailyActive FLUARIX QUADRIVALENT 0.5 ML injection inject 0.5 milliliter kqhhmitdwoyxvea159/02/2016Active PREVNAR 13 SUSP inj inject 0.5 milliliter fqdhklgmrsuietb321/02/2016Active Active Problems ProblemNoted DateDiagnosed DateElective procedure for unacceptable cosmetic jgluefmfmg40/01/2016Other plastic surgery for unacceptable cosmetic appearance 04/05/2015 Social History Tobacco UseTypesPacks/DayYears UsedDateSmoking Tobacco: FormerCigarettes0.820 08/25/1980 - 08/25/2000Alcohol UseStandard Drinks/WeekCommentsYes0 (1 standard drink = 0.6 oz pure alcohol)occasionalCommentsNoSex and Gender InformationValueDate RecordedSex Assigned at BirthNot on fileLegal SexFemale 05/03/2012 6:43 PM ESTGender IdentityNot on fileSexual OrientationNot on file Last Filed Vital Signs Vital SignReadingTime TakenCommentsBlood Xvcynoer654/7610 1:47 PM EDT Tsgab892312/27/2015 1:47 PM TBQGyhlgxendqz81.2 ??C (97.2 ??F)03/29/2015 12:37 PM ESTRespiratory Zxnr5629 1:47 PM EDTOxygen Jgdphxbgqf30%03/29/2015 1:54 PM ESTInhaled Oxygen Concentration--Xbtsmt26.2 kg (190 lb)12/27/2015 1:47 PM EDT patient dcffbcCoexqt426.6 cm (5' 6 )12/27/2015 1:47 PM EDTpatient statedBody Mass Index30.6712/27/2015 1:47 PM EDT Plan of Treatment Not on file Insurance Care Teams Team MemberRelationshipSpecialtyStart DateEnd Santi Malagon MD [address] [place] [address] PCP - General05/18/14
--- OUTSIDE RECORDS SUMMARY | 2025-02-15 13:43 | XMS_ITS | Patient Health Record ---
Author Organization [facility] in [place] Address [address] [place] [address] Care Team Providers Care Stain Applicator Name Role Phone Paul Quintero Primary Care Provider Allergies Allergen (clinical drug ingredient) Drug/Non Drug Allergy documented on EMR Reaction Allergy Type Onset Date Status FiorinalloopyDrug AllergyActive Results Component Value Reference Range Notes PROF 14(COMP METB) Reviewed date:12/18/2024 02:28:06 PM Interpretation: Performing Lab: Notes/Report: [facility] , Sodium 141 136-145 mmol/L Potassium4.53.5-5.1 mmol/XYstbkxps84020-574 mmol/LCarbon Iwuuzmc25.221.0-32.0 mmol/LAnion Gap8.5Gytssuo4742-508 mg/dLBlood Urea Rssykode60.07.0-18.0 mg/dL Creatinine0.770.55-1.02 mg/dLEstimated GFR ( Thi>60>=60 mL/min/1.73m 2Estimated GFR (Non- Roula>60>=60 mL/min/1.73m 2BUN Creatinine Ratio19.5 Calcium8.88.5-10.1 mg/dLBilirubin Total0.40.2-1.0 mg/dLAspartate Amino Skljhmzmkjs2609-65 U/LAlanine Yolerqzgihgealbr3452-61 U/LAlkaline Kfkpvvzommy955 46-116 U/LTotal Protein7.06.4-8.2 g/dLAlbumin Level3.53.4-5.0 g/dLGlobulin3.5 Albumin Globulin Ratio1.0Performing Lab:see noteML - [facility] LBXR DEXA axial skeleton Reviewed date:03/18/2024 06:03:47 PM Interpretation: Performing Lab: Notes/Report: Source Facility: [place] [address] [place] [address] XRay Report Signed Patient: JOHANNY DALTON MR#: [id number] : 1955 Acct:[id number] Age/Sex: 68 / F ADM Date: 03/18/24 Loc: CT Attending Dr: Sukhjinder Quintero M.D. Ordering Physician: Sukhjinder Quintero M.D. Date of Service: 03/18/24 Procedure(s): XR DEXA axial skeleton Accession Number(s): [id number] cc: Sukhjinder Quintero M.D. [place] [address] Patient Name: JOHANNY DALTON MRN: [id number] date: 1955 Sex: F Assigned Patient Location: CT Current Patient Location: CT Accession/Order Number: [id number] Exam Date: 03/18/2024 08:55 Report Date: 03/18/2024 [...] prevention and treatment of osteoporosis. Osteoporos Int. 2021;33(10):4181-9452. doi: 10.1007/n94343-486-40976-b. Epub 2021Jul 19. Erratum in: Osteoporos Int. 2021Oct 18;: PMID: 93052162; PMCID: [id number]. Electronically authenticated by: JOAQUIN ROME Date: 03/18/2024 14:28 Dictated By: Joaquin Rome M.D. Signed By: 03/18/24 1431 DD/ 1428 TD/TT: Metal Fabricating Inspector:CT lung screening low-dose Reviewed date:03/20/2024 08:41:15 PM Interpretation: Performing Lab: Notes/Report: Source Facility: [place] [address] [place] [address] CT Scan Report Signed Patient: JOHANNY DALTON MR#: [id number] : 1955 Acct:[id number] Age/Sex: 68 / F ADM Date: 03/18/24 Loc: CT Attending Dr: Sukhjinder Quintero M.D. Ordering Physician: Sukhjinder Quintero M.D. Date of Service: 03/18/24 Procedure(s): CT lung screening low-dose Accession Number(s): [id number] cc: Sukhjinder Quintero M.D. [place] [id number] Patient Name: JOHANNY DALTON MRN: [id number] date: 1955 Sex: F Assigned Patient Location: CT Current Patient Location: Accession/Order Number: [id number] Exam Date: 03/18/2024 08:49 Report Date: 03/19/2024 [...] Joaquin Rome M.D. Signed By: 03/19/2456 DD/ 0953 TD/TT: Metal Fabricating Inspector:MM tomosynthesis screening BI Reviewed date:05/25/2024 07:40:23 PM Interpretation: Performing Lab: Notes/Report: Source Facility: [place] [address] [place] [address] Mammography Report Signed Patient: JOHANNY DALTON MR#: [id number] : 1955 Acct:[id number] Age/Sex: 68 / F ADM Date: 05/24/24 Loc: MAMMO Attending Dr: Sukhjinder Quintero M.D. Ordering Physician: Sukhjinder Quintero M.D. Results: Date of Service: 05/24/24 Follow Up: Procedure(s): MM tomosynthesis screening BI Accession Number(s): [id number] cc: Sukhjinder Quintero M.D. Patient Name: JOHANNY DALTON MR#: [id number] : 1955 Exam Date: 05/24/2024 Ordering Doctor: [...] leukemia cancer at age 63. LOCATION: [facility] BREAST COMPOSITION: There are scattered areas [...] Romero M.D. Signed By: 05/25/24 1214 DD/ 12 TD/TT: Metal Fabricating Inspector:NUSRAT echo doppler complete Reviewed date:02/09/2025 06:20:32 PM Interpretation: Performing Lab: Notes/Report: Source Facility: [place] [address] Cardiology Report Signed Patient: JOHANNY DALTON MR#: [id number] : 1955 Acct:[id number] Age/Sex: 69 / F ADM Date: 02/09/25 Loc: NM Attending Dr: Jacquelyn Howard M.D. Ordering Physician: Jacquelyn Howard M.D. Date of Service: 02/09/25 Procedure(s): NUSRAT echo doppler complete Accession Number(s): [id number] cc: Jacquelyn Howard M.D.; Sukhjinder Quintero M.D. Patient Name: JOHANNY DALTON MR#: [id number] : 1955 Exam Date: 02/09/2025 Ordering Doctor: DR JACQUELYN HOWARD M.D. ECHOCARDIOGRAM REPORT PROCEDURE: CA ECHO DOPPLER COMPLETE INDICATIONS: Aortic insufficiency, hypertension COMPARISON: None. DESCRIPTION: COMPLETE ECHOCARDIOGRAM Real-time transthoracic echocardiography with 2D, M-mode, spectral and color flow Doppler performed. QUALITY: Technical quality was good. LEFT VENTRICLE: Normal chamber size. Normal left ventricular wall thickness. Calculated left ventricular ejection fraction is 72%. LV EF: Global left ventricular systolic function is hyperdynamic; visually estimated ejection fraction is 65-70%. No significant wall motion abnormalities. DIASTOLIC: Normal diastolic function. ATRIAL SEPTUM: Visually appears intact. LEFT ATRIUM: Normal chamber size. RIGHT ATRIUM: Normal chamber size. RIGHT VENTRICLE: Normal chamber size. Normal right ventricular systolic function. TRICUSPID VALVE: Normal mobility and thickness. No stenosis with mild regurgitation. No evidence of pulmonary hypertension. RVSP 33 mmHg MITRAL VALVE: Normal mobility and thickness. No evidence of mitral valve stenosis. There is no mitral annular calcification. Trivial mitral regurgitation. AORTIC VALVE: Normal trileaflet appearance. No visible sclerosis. Normal leaflet mobility. No evidence of aortic valve stenosis. Mild aortic regurgitation. AORTIC ROOT: Normal diameter and appearance. PULMONIC VALVE: Normal thickness and mobility. No stenosis. No regurgitation. PERICARDIUM: Anterior free space likely pericardial fat pad versus trivial effusion. IVC: Collapses with inspiration. IVC is normal in size. CONCLUSION: Global left ventricular systolic function is hyperdynamic; visually estimated ejection fraction of 65 to 70% Normal right ventricular size and systolic function Normal diastolic function The left atrium is normal in size Mild tricuspid regurgitation Mild aortic valve regurgitation Anterior free space; trivial effusion versus fat pad Adult Echocardiography Procedure Report Left Ventricle LVEDD (3.7 - 5.6 cm): 4.13 cm LVESD (2.2 - 4.0 cm): 3.18 cm LVIVS thickness (0.6 - 1.2 cm): 1.00 cm LVPW thickness (0.5 - 1.0 cm): 0.87 cm e': 0.13 m/s E - e': 4.39 LVOT Max Gradient: 11.90 mm[Hg] LVOT Area (cm2): 1.73 m/s Peak Velocity (LVOT): 1.73 m/s Mean Velocity (LVOT): 1.14 m/s LVOT Diameter 2.03 cm Left Ventricular Ejection Fraction: 71.67 % Left Atrium LA Volume Index (2D A2C): 35.86 ml/m2 Left Atrium Systolic Dimension: 3.87 cm Mitral Valve MV E to A Ratio: 0.62 MV Max Gradient: MV Mean Gradient: Mitral Valve A-Wave Peak Velocity: 0.94 m/s Mitral Valve E-Wave Peak Velocity: 0.59 m/s Cardiovascular Orifice Area: Right Ventricle RV Internal Diastolic Dimension: Aorta AO Root Diam: 3.31 cm Ascending Ao Diam: 3.49 cm Aortic Valve AoV Area (Peak Zeferino): 3.36 cm2, 3.36 cm2 AoV Area (VTI): 3.58 cm2, 3.58 cm2 Deceleration [place]: 2.17 m/s2 Pressure Half-Time: 473.27 ms Peak Velocity(Antegrade Flow): 1.66 m/s Peak Gradient(Antegrade Flow): 11.06 mm[Hg] Mean Velocity(Antegrade Flow): 1.03 m/s Mean Gradient(Antegrade Flow): 5.05 mm[Hg] Velocity Time Integral: 36.38 cm Tricuspid Valve Peak Velocity (Regurgitant Flow): 2.76 m/s, 2.76 m/s Peak Velocity: Pulmonic Valve Mean Gradient: 2.12 mm[Hg] Mean Velocity: 0.66 m/s Peak Velocity: 1.12 m/s Peak Gradient: 4.98 mm[Hg] Right Atrium Right Atrium Systolic Pressure: 35.65 ml, 35.65 ml Dictated by: Jacquelyn Howard M.D. on 02/09/2025 at 15:58 Approved by: Jacquelyn Howard M.D. on 02/09/2025 at 16:02 Dictated By: Jacquelyn Howard M.D. Signed By: 02/09/25 1603 DD/ 01 TD/TT: Metal Fabricating Inspector:OLMAN parvez perf SPECT rest str Reviewed date:02/09/2025 06:20:32 PM Interpretation: Performing Lab: Notes/Report: Source Facility: [place] [address] Nuclear Medicine Report Signed Patient: JOHANNY DALTON MR#: [id number] : 1955 Acct:[id number] Age/Sex: 69 / F ADM Date: 02/09/25 Loc: NM Attending Dr: Jacquelyn Howard M.D. Ordering Physician: Jacquelyn Howard M.D. Date of Service: 02/09/25 Procedure(s): NM parvez perf SPECT rest str Accession Number(s): [id number] cc: Jacquelyn Howard M.D.; Sukhjinder Quintero M.D. Patient Name: JOHANNY DALTON MR#: [id number] : 1955 Exam Date: 02/09/2025 Ordering Doctor: DR JACQUELYN HOWARD M.D. RADIOLOGY REPORT PROCEDURE: NM PARVEZ PERF SPECT REST STR COMPARISON: None. INDICATIONS: DYSPNEA ON EXERTION, CORONARY ARTERIOSCLEROSIS TECHNIQUE: Exam Description: Stress/Rest one day protocol gated SPECT Rest Imagin.4 mCi Tc-99m Cardiolite IV on 02/09/2025 Stress Imaging 30.3 mCi Tc-99m Cardiolite IV on 02/09/2025 Exercise Protocol: 0.4 mg Lexiscan given IV Heart Rate (bpm): Rest: 60 Max: 93 PMHR: 62 Blood Pressure: Rest: 122/60 Max: 130/66 Symptoms: Rest and peak stress ECG findings were pending, and the exercise portion of the study was pending per attending physician [facility]. For more details, please see separate cardiac stress test report. FINDINGS: QUALITY OF STUDY: Good PERFUSION DEFECT: LOCATION: N/A SIZE: N/A SEVERITY: N/A TYPE: N/A WALL MOTION: Normal wall motion LV SIZE: 69 mL. TID / TCD: 0.8 LVEF: Calculated EF 78%. SUMMARY: Myocardial perfusion imaging study is normal CONCLUSION: 1. Myocardial perfusion is normal with diaphragmatic attenuation 2. Global left ventricular systolic function is hyperdynamic; EF 78% 3. No significant transient ischemic dilatation Dictated by: Jacquelyn Howard M.D. on 02/09/2025 at 16:04 Approved by: Jacquelyn Howard M.D. on 02/09/2025 at 16:06 Dictated By: Jacquelyn Howard M.D. Signed By: 02/09/25 1607 DD/ 1606 TD/TT: Metal Fabricating Inspector:TSH Reviewed date:12/18/2024 02:28:06 PM Interpretation: Performing Lab: Notes/Report: [facility] ,Thyroid Stimulating Hormone2.3380.358-3.740 uIU/mLPerforming Lab:see noteML - [facility] LBT4 Reviewed date:12/18/2024 02:28:06 PM Interpretation: Performing Lab: Notes/Report: [facility] ,T4 Thyroxine7.904.80-13.90 ug/dLPerforming Lab:see noteML - [facility] LBFREE T3 Reviewed date:12/18/2024 02:28:06 PM Interpretation: Performing Lab: Notes/Report: [facility] ,Free T31.932.18-3.98 pg/mLPerforming Lab:see noteML - [facility] LB LIPID PROFILE Reviewed date:12/18/2024 02:28:06 PM Interpretation: Performing Lab: Notes/Report: [facility] ,Xkdgpoqfuoqpx35<=150 mg/sREisvijngjdk453<=200 mg/dLHDL Izpllwgjjqs3487-22 mg/dL <40 mg/dl - HIGH CARDIOVASCULAR RISK > or =60 mg/dl - LOW CARDIOVASCULAR RISK LDL Cholesterol Brfpjlmpyd74.2 100-129 mg/dl NEAR OR ABOVE OPTIMAL >190 mg/dl VERY HIGH 130-159 mg/dl BORDERLINE HIGH <100 mg/dl OPTIMAL 160-189 mg/dl HIGH VLDL UDKQFPZAPJT33.8Chol HDL Ratio2.8 7.1 - 11.0 MODERATE RISK 3.3 - 4.4 LOW RISK 4.4 - 7.1 AVERAGE RISK >11.0 HIGH RISK Performing Lab:see noteML - [facility] LBGLYCOHEMOGLOBIN A1C Reviewed date:12/18/2024 02:28:06 PM Interpretation: Performing Lab: Notes/Report: [facility] ,Glycohemoglobin A1C5.14.5-6.2 % ADA THERAPEUTIC TARGET < 7.0 ADA RECOMMENDED LIMIT 4.0 - 6.0 > 7.0 ACTION SUGGESTED Estimated Average Drwnhgz634Etyswicobd Lab:see noteML - [facility] LB CBC AUTO DIFF Reviewed date:12/18/2024 02:28:06 PM Interpretation: Performing Lab: Notes/Report: [facility] ,White Blood Count4.74.0-11.0 10 3/uLRed Blood Count4.234.20-5.40 10 6/uL Giqurilbzp64.712.0-16.0 g/iXBrpiavecxh44.036.0-48.0 %Mean Corpuscular Ygqrvc52.2 81.0-99.0 fLMean Corpuscular Ackhssfspn45.026.7-34.0 pgMean Corpuscular HGB Conc 32.629.9-35.2 g/dLRed Cell Distribution Width13.211.0-15.0 %Platelet Acxet044 150-450 10 3/uLMean Platelet Volume9.29.5-13.5 fLNeutrophils Percent Auto61.7 43.0-75.0 %Lymphocytes Percent Auto25.720.5-60.0 %Monocytes Percent Auto8.41.7- 12.0 %Eosinophils Percent Auto3.60.9-7.0 %Basophils Percent Auto0.40.2-2.0 % Immature Granulocytes Pct Auto0.20.0-0.5 %Neutrophils Absolute Auto2.91.4-6.5 10 3/uLLymphocytes Absolute Auto1.21.2-3.8 10 3/uLMonocytes Absolute Auto0.40.3- 0.8 10 3/uLEosinophils Absolute Auto0.20.0-0.7 10 3/uLBasophils Absolute Auto0.0 0.0-0.1 10 3/uLImmature Granulocytes Abs Auto0.010.00-0.03 10 3/uLPerforming Lab:see noteML - [facility] LBTSH Reviewed date:01/19/2025 12:58:41 PM Interpretation: Performing Lab: Notes/Report: [facility] ,Thyroid Stimulating Hormone1.9360.358-3.740 uIU/mLPerforming Lab:see note - [facility] LBT4 Reviewed date:01/19/2025 12:58:41 PM Interpretation: Performing Lab: Notes/Report: [facility] ,T4 Thyroxine8.204.80-13.90 ug/dLPerforming Lab:see note - [facility] LBFREE T3 Reviewed date:01/19/2025 12:58:41 PM Interpretation: Performing Lab: Notes/Report: [facility] ,Free T32.502.18-3.98 pg/mLPerforming Lab:see note - [facility] LB Occult Blood* Reviewed date:12/21/2024 05:04:38 PM Interpretation: Performing Lab: Notes/Report: [facility] ,Occult BloodPositivePerforming Lab:see note - [facility] LB Reason For Referral Diagnosis 1 Occult blood positiv e stool (R19.5) Referral Organization [facility] Referring Provider First Name Paul Referring Provider Last Name Vesna Referring Provider Speciality Family Med chica Referred Provider Santy Villagran Referred Provider Specialty General Surg kathya Referral Priority Routine Medications Medication SIG (Take, Route, Frequency, Duration) Notes Start Date End Date Status Cephalexin 500 MG 2 capsule Orally twice daily; Duration: 10 days ActiveTriainolone Acetonide 0.1 %1 application Externally Twice a [...] Once a dayActiveVitamin D (Cholecalciferol) 50 MCG (1999 UT)1 capsule Orally Once a dayActiveZinc 100 MG1 tablet Orally Once a dayActiveCitracal Plus -as directed OrallyActivebuPROPion HCl ER (XL) 300 mgTAKE 1 TABLET BY MOUTH IN THE MORNING; Duration: 90 daysActive Diclofenac Sodium 75 mgTAKE 1 TABLET BY MOUTH TWICE DAILY; Duration: 30Active Immunizations Vaccine Route Administration Date Status Comme nts Flu, Fluad (45174) 65 yrs + High Dose Seasonal (0045-4294) Unknown 12/26/2023 Administered Pneumococcal (Pneumovax 23)Qveouni2810/12/2017AdministeredPneumococcal (Prevnar 13)Yllxizi0812/24/2015Administered Social History Tobacco Use: Social History Observation Description Date Details (start date - stop date) Former Smoker 03/24/1976 - 03/24/1999 Tobacco Use/Smoking Question Answer Notes Patient is a former smoker When did you start smoking?03/24/1976When did you stop smoking?03/24/1999Alcohol Screen (Audit-C) Question Answer Notes Did you have a drink containing alcohol in the p ast year? No Dtylvq4HydlhomztgdfgfNzylyqzpCYSSB-K (Standard) Question Answer Notes Did you have a drink containing alcohol in the p ast year? No Xhpoev9ZfeeysuqlpaahyLkpzfmeg Problems Problem Type SNOMED Code ICD Code Onset Dates Problem Status W/U Status Risk Notes Problem Hyperlipidemia (24416771) Hyperlipidemia, unspecified (E78.5) ActiveconfirmedProblemCervical radiculopathy (38021316)Cervical radiculopathy (M54.12)ActiveconfirmedProblemObesity (211092004)Obesity (E66.9)Activeconfirmed ProblemHypothyroid (06830244)Hypothyroid (E03.9)ActiveconfirmedProblemOsteopenia (827234815)Osteopenia (M85.80)ActiveconfirmedProblemWeight gain (040435566) Weight gain (R63.5)ActiveconfirmedProblemIrritable bowel syndrome (43798624) Irritable bowel syndrome (K58.9)ActiveconfirmedProblemContact dermatitis (77615522)Contact dermatitis (L25.9)ActiveconfirmedProblemStreptococcal sore throat (disorder) (54117233)Strep pharyngitis (J02.0)ActiveconfirmedProblem Aortic valve regurgitation (03009261)Aortic valve regurgitation (I35.1)Active confirmedProblemEmphysema (33658575)Emphysema (J43.9)ActiveconfirmedProblem Depression (778158125)Depression (F32.A)Activeconfirmed Vital Signs Blood pressure diastolic 72 mm Hg 03/11/2024 Rasgfo30 in03/11/2024lood pressure osicnjpj680 mm Hg03/11/20246540Frgwxg110.0 lbs 03/11/2024BMI30.18 kg/m203/11/2024 Encounters Encounter Location Date Provider Diagnosis [facility] [address] [place] [address] 03/11/2024 Paul Quintero Encounter for Medic are annual wellness exam Z00.00 [facility] [address] [place] [address] 05/25/2024 Paul Quintero [facility] [place] [address] [address] [address]/Paul [place] adolescent [place]00.[address] [address] [place] [address]/Dosixto Quintero Hypothyroid E03.9[place] [address] [place] [id number]/Doug HoyOccult blood positive stool [facility]19.5[facility] [place] [facility] [place] [address]/Doug [facility] [place] [facility] [place] [address] 03/11/2024oug HoyOsteopenia M85.80 and Former smoker Z87.891[facility] [place] [facility] [place] [address]/oug [facility] [place] [facility] [place] [address] 03/18/2024oug HoyBAd[facility] [place] [facility] [place] [place] [address]/oug Ho Assessments Encounter Date Diagnosis (ICD Code) Assessment [...] End Date [place]IC[place] [address] [address] [id number] Sha, MarthaSelf - patient is the [facility] [place] SUPPLEMENTPO [address] [place] [id number], MarthaSelf - patient is the insured Medications Administered Medication Instructions Date of Administration Dosage Notes Marlys-40 mg80 Medical (General) History Medical History History ICD Code Osteopenia M85.80 Obesity E66.9 Cervical radiculopathy M54.12 Emphysema J43.9 Depression F32.A Aortic valve regurgitation I35.1 Irritable bowel syndrome K58.9 Abnormal stress test R94.39 Surgical History Surgery Date(Month/Year) Abdominoplasty Total Left HipHysterectomycolonoscopy03/27/2015
--- OUTSIDE RECORDS SUMMARY | 2025-02-15 13:43 | XMS_ITS | CCD ---
Author Organization [facility] Care Team Providers Care Product Steward Name Role Phone PHYSICIAN, DEFAULT Unavailable Unavailable PHYSICIAN, DEFAULT Unavailable Unavailable SUKHJINDER MALAGON Unavailable Unavailable HOY ., DR SLAUGHTER Admitting [...] Unavailable HOY ., DR SLAUGHTER Consulting Unavailable Sukhjinder Malagon Primary Care Physician [phone] Santy TURNER Attending Unavailable Sukhjinder Malagon Referring Unavailable ZAC HOWARD Attending Unavailable Allergies Allergy ClassificationReported Allergen(s)Allergy TypeDate of OnsetReaction(s) Facility (2 sources)VigabatrinDrug Ztakbly22-04-6454HUODhk [facility] Repository (1 source)aspirin / butalbital / caffeine; Translations: [ASA/butalbital/caffeine][facility] (3 sources)atorvastatin; Translations: [atorvastatin]Drug Uxzznjx02-39-9491Uwvsy (finding)[facility] (3 sources)Metoprolol; Translations: [metoprolol]Drug Wrtrgqi27-52-5797Zqzix (finding)[facility] (1 source)JGGAEZJJDF-IXWXAIG-PEFXXHIX; Translations: [PHYVZKMVOX-RZBDQCN-DQQYXJMT]Propensity to adverse reactions to drug (disorder) 79-93-1658[facility] (1 source)YZRBGNW-HVSBDQMEOJ-WWL-CAFF; Translations: [QPEWERK-WZPWEFWTGY-MWP-CAFF]Propensity to adverse reactions to drug (disorder) 48-97-4712FemathxjasProtestant Hospital Rep[facility] Medications Current Medications MedicationDrug Class(es)DatesSig (Normalized)Sig (Original)aspirin 81 mg delayed release oral tablet (1 source)Platelet Aggregation Inhibitor, Nonsteroidal Anti-inflammatory Drug Start: 74-35-5869xfpg 1 tablet by mouth once dailyaspirin 81 mg Oral EC Tab 81 mg = 1 tab(s), Oral, Daily, Refills(s) 0 Start Date: 01/05/25 Status: Ordered Medication Dispense Status: Completed Total Allowed Fills: 1 Fills Dispensed: 0 24 hr buPROPion hydrochloride 300 mg extended release oral tablet (1 source)AminoketoneStart: 00-57-2959vqon 1 tablet by mouth once dailybuPROPion 300 mg/24 hours ER Tab 300 mg = 1 tab(s), Oral, Daily, Refills(s) 0 Start Date: 01/05/25 Status: Ordered Medication Dispense Status: Completed Total Allowed Fills: 1 Fills Dispensed: 0Calcium Citrate / Vitamin D (1 source)Start: 20-18-8793evohkld-vitamin D Refill(s) 0 Start Date: 01/05/25 Status: Ordered Medication Dispense Status: Completed Total Allowed Fills: 1 Fills Dispensed: 0carvedilol 3.125 mg oral tablet (1 source)alpha-Adrenergic Shaye, beta-Adrenergic BlockerStart: 41-85-8985wlpm 1 tablet by mouth twice dailycarvedilol 3.125 mg Tab 3.125 mg = 1 tab(s), Oral, BID, Refills(s) 0 Start Date: 01/05/25 Status: Ordered Medication Dispense Status: Completed Total Allowed Fills: 1 Fills Dispensed: 0diclofenac sodium 75 mg delayed release oral tablet (1 source)Nonsteroidal Anti-inflammatory DrugStart: 54-23-8008fwzw 1 tablet by mouth twice dailydiclofenac sodium 75 mg Oral EC Tab 75 mg = 1 tab(s), Oral, BID, Refills(s) 0 Start Date: 01/05/25 Status: Ordered Medication Dispense Status: Completed Total Allowed Fills: 1 Fills Dispensed: 0ferrous sulfate 325 mg oral tablet (1 source)Start: 88-37-5619ygtu 1 tablet by mouth twice dailyferrous sulfate 325 mg Tab 325 mg = 1 tab(s), Oral, BID, Refills(s) 0 Start Date: 01/05/25 Status: Ordered Medication Dispense Status: Completed Total Allowed Fills: 1 Fills Dispensed: 0rosuvastatin calcium 10 mg oral tablet (1 source)HMG-CoA Reductase InhibitorStart: 72-16-6575zskm 1 tablet by mouth once dailyCrestor 10 mg Tab 10 mg = 1 tab(s), Oral, Daily, Refills(s) 0 Start Date: 01/05/25 Status: Ordered Medication Dispense Status: Completed Total Allowed Fills: 1 Fills Dispensed: 0Vitamin B-12 5000 mcg sublingual tablet (1 source)Start: 55-55-5761mxan 1 tablet under the tongue once dailyVitamin B-12 5000 mcg sublingual tablet 5,000 mcg = 1 tab(s), SubLingual, Daily, Refills(s) 0 StartDate: 01/25/25 Status: Ordered Medication Dispense Status: Completed Total Allowed Fills: 1 Fills Dispensed: 0Vitamin D2 2000 intl units oral capsule (1 source)Start: 74-55-7735xaro 1 capsule by mouth once dailyVitamin D2 2000 intl units oral capsule 50 mcg = 1 cap(s), Oral, Daily, cap(s), Refills(s) 0 Start Date: 01/05/25 Status: Ordered Medication Dispense Status: Completed Total Allowed Fills: 1 Fills Dispensed: 0 Problems Active Problems Problem ClassificationProblemDateDocumented DateEpisodic/ChronicChronic obstructive pulmonary disease and bronchiectasis (1 source)Pulmonary ogkhexflf32-60-3441SotyfmqSkurublb atherosclerosis and other heart disease (3 sources)Coronary arteriosclerosis; Translations: [Atherosclerotic heart disease of [place] coronary artery without angina pectoris]Onset: 12-25-2022 91-62-7651SxvlmieVpcwtejps of lipid metabolism (5 sources)Hyperlipidemia, unspecified; Translations: [Hyperlipidemia]Onset: 69-87-9225YbnjzvuPiiuv valve disorders (3 sources)Aortic valve regurgitation; Translations: [Nonrheumatic aortic (valve) insufficiency]Onset: 958114-78-7846SsdzjhwQfnqwwcsma disorders (4 sources)Other primary ovarian failure; Translations: [OTHER PRIMARY OVARIAN FAILURE]Onset: 83-93-6880IsgqelgVwua disorders (1 source)Depressive -41-3720PwpuycdTdmpilonage deficiencies (1 source)Vitamin D deficiency, unspecified; Translations: [VITAMIN D DEFICIENCY UNSPECIFIED]Onset: 57-70-6826JvykuwcQcitu bone disease and musculoskeletal deformities (1 source)Other specified disorders of bone density and structure, unspecified site; Translations: [OTH D/O BONE DEN STRUCT UNS SITE]Onset: 92-66-5261Zhexkybg Other bone disease and musculoskeletal deformities (1 source)Knxtxhwsyv83-65-2626ZffgbwnuZbkrk gastrointestinal disorders (1 source)Irritable bowel syndromeOnset: 350637-39-8735GfyddtgMdhyy gastrointestinal disorders (1 source)Other fecal abnormalitiesOnset: 65-55-6953OuknonazLhrzk gastrointestinal disorders (2 sources)Occult blood in jbqfvu58-45-8030TmdjnsosQaazh lower respiratory disease (2 sources)Other forms of dyspnea; Translations: [Other forms of dyspnea]Onset: 14-05-9947SpcxmjfjKllby nutritional; endocrine; and metabolic disorders (1 source)Obesity, unspecified; Translations: [OBESITY UNSPECIFIED]Onset: 51-44-1487ZkfiecdZjluc nutritional; endocrine; and metabolic disorders (1 source)Yugdjlfkkt19-86-4811ReslahccXjlyo nutritional; endocrine; and metabolic disorders (1 source)Overweight in adulthood with body mass index of 25 or more but less than 0269-38-7995MslmphvaQvrvy screening for suspected conditions (not mental disorders or infectious disease) (5 sources)Encounter for screening mammogram for malignant neoplasm of breast; Translations: [Encounter for screening for malignant neoplasm of colon]Onset: 26-04-4708NddayssjYacwqqyz codes; unclassified (1 source)Family history of malignant neoplasm of digestive organs; Translations: [FAM HX MALIG NEOPLASM DIGESTIV ORGN]Onset: 98-03-4374Woceffba Residual codes; unclassified (1 source)Family history of leukemia; Translations: [FAMILY HISTORY OF LEUKEMIA] Onset: 65-65-6470SpboxzuwYijgmisg codes; unclassified (1 source)Family history of malignant neoplasm of other organs or systems; Translations: [FAM HX MALIG NEOPLASM OTH ORGN/SYS]Onset: 48-32-3785Spycyupg Spondylosis; intervertebral disc disorders; other back problems (1 source)Cervical -99-6032NbcxtcuzUhpjqto disorders (1 source)Rtxebwdcyjvlpx09-90-4239Jbevltv Past or Other Problems Problem ClassificationProblemDateDocumented DateEpisodic/ChronicDeficiency and other anemia (1 source)Iron deficiency anemia, unspecified; Translations: [IRON DEFICIENCY ANEMIA UNSPECIFIED]Onset: 68-88-4400WfbkuksxPeosxrfp mellitus without complication (1 source)Other abnormal glucose; Translations: [OTHER ABNORMAL GLUCOSE]Onset: 32-79-2372JznoaqdyLsgon aftercare (1 source)Other prison (current) drug therapy; Translations: [OT SHELTER CURRENT DRUG THERAPY]Onset: 40-10-7842Kbnfudbs Results Test NameValueInterpretationReference RangeFacilityOffice Visiton 02-02-2025 Follow-up [id number] Johanny Cristina 1955 F Date Provider Department Center 02/02/2025 Kimberli-ZAC HOWARD [facility] Family History Problem Relation Age of Onset Stroke Mother Other Mother Aortic aneurysm Father Hyperlipidemia Brother Aortic aneurysm Brother Family Status - Relation Status Age at Mother Father Brother Level of Service:69527 [place] OFFICE/OUTPATIENT ESTABLISHED MOD [facility] Ambulatory Visit SummaryAmbulatory Visit Summary JOHANNY CRISTINA :1955 Visit Date:01/25/2025 Ambulatory Visit Instructions Your Diagnosis Positive fecal occult blood test Your Care Team Attending Physician - YUE HAWTHORNE, Santy Kwon Primary Care Physician - Vesna HAWTHORNE, Sukhjinder Referring Physician - Sukhjinder Malagon MD This Is Your Medications List Contact prescribing physician if questions or concerns aspirin (aspirin 81 mg Oral EC Tab) buPROPion (buPROPion 300 mg/24 hours ER Tab) calcium-vitamin D carvedilol (carvedilol 3.125 mg Tab) cyanocobalamin (Vitamin B-12 5000 mcg sublingual tablet) diclofenac (diclofenac sodium 75 mg Oral EC Tab) ergocalciferol (Vitamin D2 2000 intl units oral capsule) ferrous sulfate (ferrous sulfate 325 mg Tab) rosuvastatin (Crestor 10 mg Tab) Procedures Performed Colonoscopy (03/27/2015), Abdominal hysterectomy, Abdominoplasty, Arthroplasty of left hip. Discharge Vitals Heart Rate (Peripheral) 72 Respiratory Rate 16 Blood Pressure 116/80 Height 167.6 cm Height 66 in Weight 82.5 kg Weight 181.881 lb BMI 29.37 Medications What How Much When Instructions Unchanged aspirin (aspirin 81 mg Oral EC Tab) 1 Tablets By Mouth Every day Contact prescribing physician if questions or concerns Unchanged buPROPion (buPROPion 300 mg/ 24 hours ER Tab) 1 Tablets By Mouth Every day Contact prescribing physician if questions or concerns Unchanged calcium-vitamin D Contact prescribing physician if questions or concerns Unchanged carvedilol (carvedilol 3.125 mg Tab) 1 Tablets By Mouth 2 times a day Contact prescribingphysician if questions or concerns Unchanged cyanocobalamin (Vitamin B-12 5000 mcg sublingual tablet) 1 Tablets Sublingual Every day Contact prescribing physician if questions or concerns Unchanged diclofenac (diclofenac sodium 75 mg Oral EC Tab) 1 Tablets By Mouth 2 times a day Contactprescribing physician if questions or concerns Unchanged ergocalciferol (Vitamin D2 2000 intl units oral capsule) 1 Capsules By Mouth Every day Contact prescribing physician if questions or concerns Unchanged ferrous sulfate (ferrous sulfate 325 mg Tab) 1 Tablets By Mouth 2 times a day Contact prescribing physician if questions or concerns Unchanged rosuvastatin (Crestor 10 mg Tab) 1 Tablets By Mouth Every day Contact prescribing physician if questions or concerns Allergies Fiorinal atorvastatin (Edema) metoprolol (Edema) Problems Ongoing - Any problem that you are currently receiving treatment for. Aortic valve regurgitation BMI 29.0-29.9,adult Cervical radiculopathy Coronary arteriosclerosis Depression Emphysema, unspecified Hyperlipidemia Hypothyroidism Irritable bowel syndrome Occult blood positive stool Osteopenia Overweight Positive fecal occult blood test Patient Survey You may receive a survey via text or e-mail asking about your office visit. Please share your experience with us by completing your survey. We appreciate your feedback and thank you for choosing us for your care. Patient Portal You may access all of your results and other medical record information on our secure patient portal. If you are not signed up for this yet, please contact [employer] at [phone] to get signed up today. Language Information Language assistance services are available as needed. [facility] CenterMG MAMM SCREEN 3D NÉSTOR CADon 10-40-4947NV MAMM SCREEN 3D NÉSTOR CADPatient: JOHANNY CRISTINA Exam Date: 05/21/2022 : 1955 Gender:F Ordering : DR SUKHJINDER MALAGON . Admission #: [id number] Family : Order #: [id number] CLICK HERE TO VIEW EXAM RADIOLOGY REPORT [...] leukemia cancer at age 63. LOCATION: [facility] BREAST COMPOSITION: Scattered areas fibroglandular density. [...] by: Stanislaw Gonzalez MD on 05/21/2022 at 11:36[facility] CenterXR DEXA BONE DENSITYon 97-49-7491WL DEXA BONE DENSITYEXAMINATION: XR DEXA BONE DENSITY, 02/22/2022 9:59 AM EST HISTORY: [...] Electronically authenticated by: STANISLAW GONZALEZ Date: 2022-02-22 10:20NormalThe [facility] HospitalINSULINon 33-81-8952Ycrphds94.7 uIU/mLNormal2.6-24.9The [facility] HospitalComment on above:Performed By: #### INSULIN ####[facility] [address] [address]Dr. Lindsay Varela BILIRUBIN CONJUGATED (DIRECT)on 13-80-5731OCRB, CONJUGATED0.1 mg/dLNormal0.0-0.[address] [facility] HospitalComment on above:Performed By: #### TSH, CMP, T4, FT3, DBIL, LIPID ####[facility] [address] [place], [place] [address]Dr. Lindsay VarelaCBC AUTO DIFFon [id number] #0.0 103/ulNormal0.0-0.1Wilson HealthComment on above:Performed By: #### CBC #### [facility] [address] [place] [address] Dr. Lindsay VarelaBasophils/100 WBC (Bld)0.4 %Normal0.2-2.0[facility] Comment on above:Performed By: #### CBC #### [facility] [address] [address] [address] Lindsay Knutson #0.1 103/ulNormal0.0-0.7The [facility] HospitalComment on above: Performed By: #### CBC #### [facility] [address] [place] [address] Dr. Lindsay Burgessosinophils/100 WBC (Bld)2.3 %Normal0.9-7.0The [facility] Comment on above:Performed By: #### CBC #### [facility] [address] [address] [address] Yilan ChangErythrocyte distribution width (RBC) [Ratio]12.2 %Ixuplb87.0-15.[address] [facility] HospitalComment on above:Performed By: #### CBC #### [facility] [address] [place] [address] Dr. Lindsay VarelaHematocrit (Bld) [Volume fraction]41.9 %Dcmjdd67.0-48.0The [facility] HospitalComment on above:Performed By: #### CBC #### [facility] [address] [place] [address] Dr. Lindsay VarelaHemoglobin (Bld) [Mass/Vol]13.9 g/jLOvfbyo49.0-16.0The [facility] HospitalComment on above:Performed By: #### CBC #### [facility] [address] [place] [address] Dr. Lindsay Blanco #0.01 10e3/ulNormal0.00-0.03The [facility] HospitalComment on above:Performed By: #### CBC #### [facility] [address] [place] [address] Dr. Lindsay Blanco %0.2 %Normal0.0-0.5The [facility] HospitalComment on above: Performed By: #### CBC #### [facility] [address] [place] [address] Dr. Lindsay Richardson #1.4 103/ulNormal1.2-3.8The [facility] HospitalComment on above:Performed By: #### CBC #### [facility] [address] [place] [address] Dr. Lindsay Arroyomphocytes/100 WBC (Bld)29.2 %Crhstz32.5-60.0The [facility] HospitalComment on above:Performed By: #### CBC #### [facility] [address] [place] [address] Dr. Lindsay OsmanUAL DIFF REQNONormalThe [facility] HospitalComment on above: Performed By: #### CBC #### [facility] [address] [place] [address] Dr. Lindsay Mckeon (RBC) [Entitic mass]29.4 llPyiygb06.7-34.0The [facility] HospitalComment on above:Performed By: #### CBC #### [facility] [address] [place] [address] Dr. Lindsay Munoz (RBC) [Mass/Vol]33.2 g/fZDcndru52.9-35.2The [facility] HospitalComment on above:Performed By: #### CBC #### [facility] [address] [place] [address] Dr. Lindsay Munoz (RBC) [Entitic vol]88.6 rGPmltqb50.0-99.0The [facility] HospitalComment on above:Performed By: #### CBC #### [facility] [address] [place] [address] Dr. Lindsay Manzano #0.5 103/ulNormal0.3-0.8The [facility] HospitalComment on above:Performed By: #### CBC #### [facility] [address] [place] [address] Dr. Lindsay Kowalskiocytes/100 WBC (Bld)9.5 %Normal1.7-12.0The [facility] Comment on above:Performed By: #### CBC #### [facility] [address] [place] [address] Dr. Lindsay Mcmahon #2.8 103/ulNormal1.4-6.5The [facility] HospitalComment on above:Performed By: #### CBC #### [facility] [address] [place] [address] Dr. Lindsay Walshutrophils/100 WBC (Bld)58.4 %Katbax16.0-75.0The [facility] HospitalComment on above:Performed By: #### CBC #### [facility] [address] [place] [address] Dr. Lindsay Mittallet mean volume (Bld) [Entitic vol]9.7 fLNormal9.5-13.5The [facility] HospitalComment on above:Performed By: #### CBC #### [facility] [address] [address] [address] Lindsay VarelaPLT181 103/dxBfukzn485-381Yuk [facility] HospitalComment on above: Performed By: #### CBC #### [facility] [address] [address] [address] Lindsay VarelaRBC4.73 106/ulNormal4.20-5.40The [facility] HospitalComment on above:Performed By: #### CBC #### [facility] [address] [address] [address] Lindsay VarelaWBC4.8 103/ulNormal4.0-11.0The [facility] HospitalComment on above: Performed By: #### CBC #### [facility] [address] [place] [address] Dr. Lindsay VarelaFREE T3on 42-14-6293GPAB T32.78 pg/mlLNormal2.18-3.98The [facility] HospitalComment on above:Performed By: #### TSH, CMP, T4, FT3, DBIL, LIPID #### [facility] [address] [address] [address] Lindsay VarelaGLYCOHEMOGLOBIN A1Con 64-33-4932EDT RECOMMENDATIONSEE BELOWNormal [facility] HospitalComfresenius medical care [facility] on above:Result Comment: ADA RECOMMENDED LIMIT 4.0 - 6.0 ADA THERAPEUTIC TARGET < 7.0 ACTION SUGGESTED > 7.0Performed By: #### A1C ####[facility] [address] [address]DrMike VarelaGlucose [Mass/Vol]105 mg/dLNormalThe [facility] HospitalComfresenius [facility] on above:Performed By: #### A1C ####[facility] [address] [place], [place] [address]Dr.Yilan VarelaHbA1c (Bld) [Mass fraction]5.3 %Normal 4.5-6.2The [facility] on above:Performed By: #### A1C ####[facility] [address] [place], [place] [address]Dr.Yilan Gupta 82-32-2846Bkhi [Mass/Vol]71.0 ug/hVJpjyot98.0-170.0The [facility] HospitalComment on above:Performed By: #### VITAD, IRON #### [facility] [address] [place] [address] Dr. Lindsay Fischer PROFILEon 50-78-9092BRGP-HDL RATIO NORMSEE BELOWUniversity Hospitals Parma Medical CenterComment on above:Result Comment: 3.3 - 4.4 LOW RISK 4.4 - 7.1 AVERAGE RISK 7.1 - 11.0 MODERATE RISK >11.0 HIGH RISKPerformed By: #### TSH, CMP, T4, FT3, DBIL, LIPID #### [facility] [address] [place] [address] Dr. Lindsay Guzmánesterol [Mass/Vol]141 mg/dLNormal<=200The [facility] Comment on above:Performed By: #### TSH, CMP, T4, FT3, DBIL, LIPID #### [facility] [address] [place] [address] Dr. Lindsay Crowol in HDL [Mass/Vol]44 mg/nBUczpxi59-18Jsn [facility] HospitalComment on above:Performed By: #### TSH, CMP, T4, FT3, DBIL, LIPID #### [facility] [address] [place] [address] Dr. Lindsay Lira in LDL [Mass/Vol]77.0 mg/dLNoAshtabula County Medical CenterComment on above:Performed By: #### TSH, CMP, T4, FT3, DBIL, LIPID #### [facility] [address] [place] [address] Dr. Lindsay Lira.total/Cholesterol in HDL [Mass ratio]3.2 {ratio} NormalGalion Community Hospital on above:Performed By: #### TSH, CMP, T4, FT3, DBIL, LIPID #### [facility] [address] [place] [address] Dr. Lindsay Hoffmann NORMAL> or = 60 mg/dl - LOW CARDIOVASCULAR RISK <40 mg/dl - HIGH CARDIOVASCULAR RISKUniversity Hospitals Parma Medical CenterComment on above:Performed By: #### TSH, CMP, T4, FT3, DBIL, LIPID #### [facility] [address] [address] [address] Lindsay Gloria CALC NORMALSEE BELOWUniversity Hospitals Parma Medical CenterComment on above:Result Comment: <100 mg/dl OPTIMAL 100 - 129 mg/dl NEAR OR ABOVE OPTIMAL 130 - 159 mg/dl BORDERLINE HIGH 160 - 189 mg/dl HIGH >190 mg/dl VERY HIGH Performed By: #### TSH, CMP, T4, FT3, DBIL, LIPID #### [facility] [address] [address] [address] Lindsay VarelaTriglyceride [Mass/Vol]100 mg/dLNormal<=150The [facility] Comment on above:Performed By: #### TSH, CMP, T4, FT3, DBIL, LIPID #### [facility] [address] [place] [address] Dr. Lindsay KellyLDL CALC20.0 mg/dLNoAshtabula County Medical CenterComment on above: Performed By: #### TSH, CMP, T4, FT3, DBIL, LIPID #### [facility] [address] [place] [address] Dr. Lindsay Ellison 14(COMP METB)on 68-02-8265Flqagrm [Mass/Vol]3.8 g/dLNormal 3.4-5.0The [facility] HospitalComment on above:Performed By: #### TSH, CMP, T4, FT3, DBIL, LIPID #### [facility] [address] [place] [address] Dr. Lindsay VarelaAlbumin/Globulin [Mass ratio]1.1 {ratio}NormalThe [facility] HospitalComment on above:Performed By: #### TSH, CMP, T4, FT3, DBIL, LIPID #### [facility] [address] [place] [address] Dr. Lindsay Shields [Catalytic activity/Vol]107 U/KTskeks48-829Hsc [facility] HospitalComment on above:Performed By: #### TSH, CMP, T4, FT3, DBIL, LIPID #### [facility] [address] [address] [address] Lindsay Wood [Catalytic activity/Vol]19 U/LXzlyzt01-90VaiWilson HealthComment on above:Performed By: #### TSH, CMP, T4, FT3, DBIL, LIPID #### [facility] [address] [address] [address] Lindsay Palacios gap [Moles/Vol]10.5 mmol/LNormalWilson Health Comment on above:Performed By: #### TSH, CMP, T4, FT3, DBIL, LIPID #### [facility] [address] [place] [address] Dr. Lindsay Brian [Catalytic activity/Vol]16 U/DJvoysq72-40SkdWilson HealthComment on above:Performed By: #### TSH, CMP, T4, FT3, DBIL, LIPID #### [facility] [facility] [address] [place] [address] Dr. Lindsay VarelaBilirubin [Mass/Vol]0.5 mg/dLNormal0.2-1.0[facility] Comment on above:Performed By: #### TSH, CMP, T4, FT3, DBIL, LIPID #### [facility] [address] [place] [address] Dr. Lindsay VarelaCalcium [Mass/Vol]9.2 mg/dLNormal8.5-10.1[facility] Comment on above:Performed By: #### TSH, CMP, T4, FT3, DBIL, LIPID #### [facility] [address] [place] [address] Dr. Lindsay VarelaChloride [Moles/Vol]102 mmol/BWhsmrc05-766LgrWilson Health Comment on above:Performed By: #### TSH, CMP, T4, FT3, DBIL, LIPID #### [facility] [address] [place] [address] Dr. Lindsay VarelaCO2 [Moles/Vol]29.9 mmol/SEcdcom98.0-32.0[facility] Comment on above:Performed By: #### TSH, CMP, T4, FT3, DBIL, LIPID #### [facility] [address] [place] [address] Dr. Lindsay VarelaCreatinine [Mass/Vol]0.92 mg/dLNormal0.55-1.02[facility] HealthComment on above:Performed By: #### TSH, CMP, T4, FT3, DBIL, LIPID #### [facility] [address] [place] [address] Dr. Lindsay BurgessGFR-AF SOUTH AFRICAN>60Normal>=60The [facility]Comment on above:Performed By: #### TSH, CMP, T4, FT3, DBIL, LIPID #### [facility] [address] [place] [address] Dr. Lindsay BurgessGFR-NON AF SOUTH AFRICAN>60Normal>=60The [facility] on above:Performed By: #### TSH, CMP, T4, FT3, DBIL, LIPID #### [facility] [address] [place] [address] Dr. Lindsay VarelaGlobulin (S) [Mass/Vol]3.6 g/dLNormalThe [facility] HospitalComment on above:Performed By: #### TSH, CMP, T4, FT3, DBIL, LIPID #### [facility] [address] [place] [address] Dr. Lindsay VarelaGlucose [Mass/Vol]100 mg/fWOwmgrn36-879BufWilson Health Comment on above:Performed By: #### TSH, CMP, T4, FT3, DBIL, LIPID #### [facility] [address] [place] [address] Dr. Lindsay VarelaPotassium [Moles/Vol]4.4 mmol/LNormal3.5-5.1The [facility] Comment on above:Performed By: #### TSH, CMP, T4, FT3, DBIL, LIPID #### [facility] [address] [place] [address] Dr. Lindsay VarelaProtein [Mass/Vol]7.4 g/dLNormal6.4-8.2The [facility] Comment on above:Performed By: #### TSH, CMP, T4, FT3, DBIL, LIPID #### [facility] [address] [place] [address] Dr. Lindsay Grimaldodium [Moles/Vol]138 mmol/IBaqlpu041-942Mcu [facility] Comment on above:Performed By: #### TSH, CMP, T4, FT3, DBIL, LIPID #### [facility] [address] [place] [address] Dr. Lindsay VarelaUrea nitrogen [Mass/Vol]18.0 mg/dLNormal7.0-18.0The [facility] HospitalComment on above:Performed By: #### TSH, CMP, T4, FT3, DBIL, LIPID #### [facility] [address] [place] [address] Dr. Lindsay VarelaUrea nitrogen/Creatinine [Mass ratio]19.6 mg/mgNormalThe [facility] HospitalComment on above:Performed By: #### TSH, CMP, T4, FT3, DBIL, LIPID #### [facility] [address] [place] [address] Dr. Lindsay VarelaT4on 50-13-3164Z0 [Mass/Vol]9.00 ug/dLNormal4.80-13.90The [facility] HospitalComment on above:Performed By: #### TSH, CMP, T4, FT3, DBIL, LIPID #### [facility] [address] [place] [address] Dr. Lindsay Allison 60-40-5943BVW7.036 uIU/mLNormal0.358-3.740[facility] HealthComment on above:Performed By: #### TSH, CMP, T4, FT3, DBIL, LIPID #### [facility] [address] [place] [address] Dr. Lindsay VarelaVITAMIN D 25 OHon 60-77-5178ZTF D 25-OH66.4 ng/mLNormalThe [facility] HospitalComment on above:Performed By: #### VITAD, IRON #### [facility] [address] [address] [address] Lindsay De La Torre [facility] SystemComment on above: Result Comment: <20 ng/mL Vit D deficient 20 - <30 ng/mL Vit D insufficient 30 - 100 ng/mL Vit D sufficient >100 ng/mL Potential ToxicityPerformed By: #### VITAD, IRON #### [facility] [address] [address] [address] Lindsay Varela Encounters Encounter DateEncounter TypeCare ProviderFacilityStart: 02-02-2025 End: 80-96-9921ippizlersrDXGX [facility] Clinictart: 01-25-2025 End: 57-52-6990gpltjyrccdPferxdn R NILLFacility:[facility]: 01-25-2025 End: 93-09-5506Nogkccw encounter procedureMichael R NILL 148-8995Vgweaw-FzwnyK[facility] [place] Start: 72-92-0633icynwjcmmcBigntuy NILLFacility:[facility]tart: 05-21-2022 End: 45-64-8944xjrkziyfiqRA SUKHJINDER HOY .Facility:B5Izpzv: 02-22-2022 End: 37-24-5201sfvwgceshzTF SUKHJINDER HOY .Facility:B4Trwbr: 02-12-2022 End: 40-36-8027eqtwuganpyOR SUKHJINDER HOY .Facility:Z7Dgofk: 02-09-2018 End: 24-58-0454Miskjsd encounter procedureDEFAULT PHYSICIANFacility:[facility] Procedures DateProcedureProcedure DetailPerforming ClinicianStart: 19-74-3528Mlbvrfopgmu Santy NILL Abdominal hysterectomyMichael NILL AbdominoplastyMichael NILL Repair of joint of left hipMichael NILL Payers DatePayer CategoryPayerPolicy [id number] 1962Unknown [id number] Social History DateTypeDetailFacilityStart: 16-16-9691Phxcord smoking statusEx-smoker (finding) [facility] CenterTobacco smoking statusNever [facility] Hospitalexual OrientationFishT[facility] [place] Sex Assigned At [facility] Campustart: 48-32-2935WimMlnrrh (finding)[facility] Progress note 02-02-2025 Note Date & FuegXaxfGqarhhqz67-80-2403 [facility] Chief Complaint: Patient here [...] chest pain, leg swelling/pain, racing heart/palpitation, HPI: Johanny Cristina is a 66 y.o. female with moderate [...] Hyperlipidemia Brother Aortic aneurysm Brother Allergies Atorvastatin, Ppttscaast-eyzmbxr-mxlldozn, Gvdbzvv-mtmskjlaan-wft-caff, and Metoprolol Medications Current Outpatient Medications: ascorbic [...] kg (181 lb) SpO2 96% BMI 29.21 kg/m??? Physical Examination: GENERAL: alert and oriented [...] as assessed by fractional flow reserve. 2. Pboc-ze-kyrokzry disease of the left anterior descending and right coronary arteries. 3. Mildly elevated right-sided heart pressures and wedge pressure. 4. Normal cardiac output/cardiac index. 5. Normal global left ventricular systolic function by noninvasive imaging. Reviewed labs from 08/2020, overall unremarkable Echocardiogram 01/10/2021: Global left ventricular systolic function is normal; visually estimated ejection fraction is 60 to 65%. Abnormal septal motion likely rel (more content not included)...[facility] Clinical Note 01-25-2025 Note Date & HrgnElnwUtugwbil75-18-2230 NoteGeneral Surgery Office/Clinic Note Chief Complaint consultation for positive occult stool HPI Staff 69 year old female presents on consultation from Dr. Malagon for positive occult stool. Last colonoscopy completed 03/2015 with internal hemorrhoids and diverticulosis. Denies abdominal or rectal pain. Norectal bleeding or change in bowel habits. Verbalized chronic constipation for which she utilizes Miralx PRN. Denies nausea, vomiting or weight loss. No known family history of colon cancer History of Present Illness 69 yo female with h/o hyperlipidemia, hypothyroidism, emphysema, CAD, aortic valve regurgitation, cervical radiculopathy, referred for positive fecal occult blood test; denies change in bms or gross blood in stools; last colonoscopy 03/2015 with internal hemorrhoids and moderate cecal and sigmoid diverticulosis; abd operations significant for hysterectomy and abdominoplasty; on baby asa daily and Diclofenac; no tobacco use; no fmhx of GI malignancy or IBD. Review of Systems PHQ Score Initial Depression Screen Score: 0 SCORE ROS - Provider Constitutional: no fever, no sweats, no weight loss. Eyes: no glasses, no blurred vision, no visual loss. ENMT: no dentures, no hoarseness, no swallowing difficulties, no hearing loss, no ear infection(s),no nose bleeds. Cardiovascular: normal blood pressure, no chest pain, regular heartbeat, no heart murmur. Respiratory: no shortness of breath, no cough, no asthma, no wheezing. Gastrointestinal: no nausea, no vomiting, no diarrhea, no constipation, no blood in stool, no change in bowel habits, no abdominal pain, no hepatitis. Genitourinary: no kidney stones, no urine infection, no dysuria. Musculoskeletal: no pain, no weakness. Skin: no changing moles, no rash, no skin lumps. Neurologic: no seizures, no epilepsy, no headache. Psychiatric: no emotional or psychiatric problem. Heme/Lymph: no bleeding problems, no anemia, no blood clots, no transfusions. Allergy/Immunologic: no swollen lymph nodes/glands, no IV drug abuse. Other: Additional ROS info: Except as noted in the above Review of Systems and in the History of Present Illness, all other systems have been reviewed and are negative or noncontributory. Physical Exam Vitals & Measurements HR: 72(Peripheral) RR: 16 BP: 116/80 HT: 167.6 cm HT: 66 in WT: 181.881 lb WT: 82.5 kg BMI: 29.37 HEENT: normal conjunctiva, sclera clear, no scleral icterus, EOM intact, PERRLA, oral mucosa moist without lesions. Neck: trachea midline, no mass, symmetric, no thyromegaly or nodules, no adenopathy Respiratory: lungs CTA, respirations non labored. Cardiovascular: regular rate and rhythm, no murmur, no pedal edema or varicosities. Gastrointestinal: obese, soft, non distended, no tenderness, no masses, no palpable hernias, diastasis recti no, no hepatosplenomegaly; normal bs Musculoskeletal: normal gait, digits and nails without infection, nodes, cyanosis, clubbing. Skin: no rashes, no lesions, no ulcers, no subcutaneous nodules, induration. Psychiatric/Neuro: oriented to time, place, person, judgement normal, affect appropriate for age, insight intact, no focal deficits. Tests: labs reviewed, review of old records completed , Discussed surgical options, risks, and possible complications with patient. Assessment/Plan 1. Positive fecal occult blood test (R19.5: Other fecal abnormalities) plan colonoscopy under anesthesia, informed consent obtained. Follow-up No qualifying data available Problem List/Past Medical History Ongoing Aortic valve regurgitation BMI 29.0-29.9,adult Cervical radiculopathy Coronary arteriosclerosis Depression Emphysema, unspecified Hyperlipidemia Hypothyroidism Irritable bowel syndrome Occult blood positive stool Osteopenia Overweight Positive fecal occult blood test Historical No qualifying data Procedure/Surgical History Colonoscopy (03/27/2015), Abdominal hysterectomy, Abdominoplasty, Arthroplasty of left hip. Medications aspirin 81 mg Oral EC Tab, 81 mg= 1 tab(s), Oral, Daily buPROPion 300 mg/24 hours ER Tab, 300 mg= 1 tab(s), Oral, Daily calcium-vitamin D carvedilol 3.125 mg Tab, 3.125 mg= 1 tab(s), Oral, BID Crestor 10 mg Tab, 10 mg= 1 tab(s), Oral, Daily diclofenac sodium 75 mg Oral EC Tab, 75 mg= 1 tab(s), Oral, BID ferrous sulfate 325 mg Tab, 325 mg= 1 tab(s), Oral, BID Vitamin B-12 5000 mcg sublingual tablet, 5000 mcg= 1 tab(s), SubLingual, Daily Vitamin D2 2000 intl units oral capsule, 50 mcg= 1 cap(s), Oral, Daily Allergies Fiorinal atorvastatin (Edema) metoprolol (Edema) Social History Alcohol - Denies Alcohol Use, 01/25/2025 Never., 01/20/2025 Substance Abuse - Denies Substance Abuse, 01/25/2025 Tobacco Former smoker, quit more than 30 days ago Tobacco Use:. Never Smokeless Tobacco Use:. Cigarettes, 0.5 per day. Started age 16.0 Years. Stopped age 43 Years., 01/25/2025 Family History Alzheimer's disease: Mother. Diabetes melli (more content not included)...[facility]Result Comment: Electronically Signed By: YUE HAWTHORNE, Santy Bautista\Date and Time Signed: 01/25/25 13:36 EST Hospital course Narrative Note Date & TypeNoteFacilityHospital course Narrative No data available for this section [facility] [place] [facility] Discharge instructions Note Date & TypeNoteFacilityHospital Discharge instructions No data available for this section [facility] [place] Progress note Note Date & TypeNoteFacilityProgress note No data available for this section [facility] [place] Summary Purpose Family History No Family History Records FoundNo Family History Records Found No data available for this section No Family History Records FoundNo Family History Records Found Advance Directives No Advanced Directives Records FoundNo Advanced Directives Records FoundNo Advanced Directives Records FoundNo Advanced Directives Records Found Additional Source Comments INFORMATION SOURCE (unrecogn ized section and content) DATE CREATED AUTHOR 03/02/2018 [facility] DATE CREATED AUTHOR AUTHOR'S ORGANIZ ATION 05/28/2022 [facility] DATE CREATED AUTHOR AUTHOR'S ORGANIZ ATION 01/27/2025 [facility] DATE CREATED AUTHOR AUTHOR'S ORGANIZ ATION 02/04/2025 [facility] Patient Care team informatio n (unrecognized section and content) Personnel Name: Sukhjinder Malagon MD Address: [address] [place] [address] Telecom: FOR RECORDS PERTAINING TO PATIENTS WHO ARE [...] BE BASED ON THE PRIMARY CLINICAL RECORDS. [facility]. provides no warranty or guarantee of the accuracy or completeness of information in this document.
--- OUTSIDE RECORDS SUMMARY | 2025-02-15 13:43 | XMS_ITS | Clinical Summary ---
Author Organization [facility] Address [address] [place] [address] Care Team Providers Care Mining Technician Name Role Phone Santi Malagon MD Primary Care Provider Allergies Active AllergyReactionsCriticalityNoted DateCommentsAtorvastatinSwelling 08/16/20152791Sgyjlamway-Agertzb-Wnlngdwx55/17/3511Qstxpax-Mcpttdexxu-Det-Caff 08/23/2014MetoprololDizziness,Cdtwntry96/25/2016 Medications MedicationSigDispense QuantityRefillsLast FilledStart DateEnd DateStatus aspirin [...] type, unspecified whether angina present, unspecified whether white earth or transplanted heartTake 1 tablet (10 mg) [...] ctive Active Problems ProblemNoted DateDiagnosed DateBMI 29.0-29.9,adult01/31/2025ervical vrczqsxlmgywz10/10/2025ontact tqhliwfqrp14/10/2618Okrilubyah58/10/2025 Emphysema, rosszzqwqyl25/10/2915Serllmymldeqhg49/10/9865Twdvfisimhd03/10/2025 Gkugjbx0801/31/2025Occult blood in komvbs3504/02/20241760Qqwtklqexn17/10/2025Overweight 01/31/2025Streptococcal knadrenwbbn46/10/2025Weight gain01/31/2025llergic fthowroz70ortic valve aweeivcgcnfqk67 Cardiovascular stress test cxeejuoe30hest pain12/25/2022 12/25/2022oronary atzfchpojnpvanzb16yspnea12/25/2022 12/25/20225893Gyapb76Irritable bowel rfphcwwo20 Xqscqtjkcctgrtc77Elective procedure for unacceptable cosmetic rkcqvayeln55Other plastic surgery for unacceptable cosmetic lfrnpjckun62 Encounters DateTypeDepartmentCare AnrsDsiyidlqtck91/19/2025Orders Only [address] [place] [address] Bharathi Braden MD Nonrheumatic aortic valve insufficiency; GOLDSTEIN (dyspnea on exertion)02/02/2025 11:30 AM ESTOffice Visit [address] [place] [address] Jacquelyn Knight MD Nonrheumatic aortic valve [...] file05/15/2023CommentsUnknownSex and Gender InformationValueDate RecordedSex Assigned at FziuqIjfwqc13/24/2025 10:57 AM EDT Legal DkpCpkuvu32/29/2022 9:02 PM EDTGender QkgafgirQvfwfe56/24/2025 10:57 AM EDTSexual OrientationHeterosexual or Hghcdxos83/24/2025 10:57 AM EDT Last Filed Vital Signs Vital SignReadingTime TakenCommentsBlood Qbekggve182/6402/02/2025 11:52 AM EST Aozsy884402/02/2025 11:52 AM ESTTemperature--Respiratory Rate--Oxygen Saturation 96%02/02/2025 11:52 AM ESTInhaled Oxygen Concentration--Plgyid38.1 kg (181 lb) 02/02/2025 11:52 AM PGXTedvpl059.6 cm (5' 6 )02/02/2025 11:52 AM ESTBody Mass Index29. 11:52 AM EST Plan of Treatment Health MaintenanceDue DateLast DoneCommentsCT Uwhovfleyviq14/12/1954FIT-DNA 1953FIT1953FOBT1953Medicare Annual Wellness (AWV)1955 Vwnolsjyestzr29/12/1954Depression Gduvxjjmp70/12/2203Smfbivfcm96/12/1994Fall Risk Xugglswdo76/12/2019COVID-19 Vaccine ( season)2024 Hkvtyreltqy88/04/05706203/27/2015Colorectal Cancer Ggpgowygl92/04/2026dult Pgmfhqg61Zoster FbyzfauyIukxfzyqh82/28/2018, 10/10/2017 Influenza InuhdeaOwodiswrw51/30/2025, 12/26/2023, 01/05/2022, Additional history existsPneumococcal Vaccine: 50+ ReqobWqsqtyqre45/30/2025, 10/12/2017, 12/24/2015 HIB VaccinesAged OutNo longer eligible [...] on patient's age to complete this topic Procedures Procedure NamePriorityDate/TimeAssociated DiagnosisCommentsCOMPLETE TRANSTHORACIC ECHO (TTE) W/WO IMAGING AGENT, STRAIN, 3D, BUBBLE STUDYRoutine 02/09/2025 4:16 PM EST Nonrheumatic aortic valve insufficiency GOLDSTEIN (dyspnea on exertion) from Last 3 Months Results * Transthoracic echo (TTE) complete (02/09/2025 4:16 PM EST)Anatomical Region LateralityModalityUltrasound Narrative Authorizing ProviderResult TypeResult StatusEhab [facility] MDCV ECHO PROCEDURES Final Result from Last 3 Months Insurance Care Teams Team MemberRelationshipSpecialtyStart Date Santi aMlagon MD [address] [facility] [place] [address] PCP - Disipxn17/4/23
--- OUTSIDE RECORDS SUMMARY | 2025-02-15 13:43 | XMS_ITS | Clinical Summary ---
Author Organization [facility] Address [address] [place] [address] Care Team Providers Care Rectifying Attendant Name Role Phone Unavailable Primary Care Provider Unavailabl e Social History Tobacco UseTypesPacks/DayYears UsedDateSmoking Tobacco: Never Assessed CommentsUnknownSex and Gender InformationValueDate RecordedSex Assigned at Not on fileLegal BwnNrxzdc86/15/2023 6:49 PM EDTGender IdentityNot on fileSexual OrientationNot on file Plan of Treatment Not on file
--- OUTSIDE RECORDS SUMMARY | 2025-02-15 13:43 | XMS_ITS | Encounter Summary ---
Author Organization [facility] Address [address] [place] [address] Care Team Providers Care Company Controller Name Role Phone Santi Malagon MD Primary Care Provider [phone] Encounter Details DateTypeDepartmentCare Team (Latest Contact Info)Tzppzoeqaba65/19/2025Orders Only [facility] [address] [place] [address] Provider, MD Bharathi [address] [place], [place] [id number] Nonrheumatic aortic valve insufficiency; GOLDSTEIN (dyspnea on exertion) Social History Tobacco UseTypesPacks/DayYears UsedDateSmoking Tobacco: FormerCigarettesQuit: 2000Smokeless Tobacco: NeverAlcohol UseStandard Drinks/WeekCommentsYes0 (1 standard drink = 0.6 oz pure alcohol)occasionalUT Safety & EnvironmentAnswerDate RecordedFear of Current or Ex-PartnerNot on file05/15/2023Emotionally AbusedNot on file05/15/2023hysically AbusedNot on file05/15/2023Sexually AbusedNot on file05/15/2023hysically or Sexually AbusedNot on file05/15/2023Comments UnknownSex and Gender InformationValueDate RecordedSex Assigned at BirthFemale 12/15/2024 10:57 AM EDTLegal HrvAsigcg16/29/2022 9:02 PM EDTGender Identity Bmenqy1712/15/2024 10:57 AM EDTSexual OrientationHeterosexual or Straight 12/15/2024 10:57 AM EDTdocumented as of this encounter Plan of Treatment Not on file documented as of this encounter Procedures Procedure NamePriorityDate/TimeAssociated DiagnosisCommentsCOMPLETE TRANSTHORACIC ECHO (TTE) W/WO IMAGING AGENT, STRAIN, 3D, BUBBLE STUDYRoutine 02/09/2025 4:16 PM EST Nonrheumatic aortic valve insufficiency GOLDSTEIN (dyspnea on exertion) documented in this encounter Results * Transthoracic echo (TTE) complete (02/09/2025 4:16 PM EST)Anatomical Region LateralityModalityUltrasound Narrative Authorizing ProviderResult TypeResult StatusEhab [facility] ECHO PROCEDURES Final Result documented in this encounter Visit Diagnoses Diagnosis Nonrheumatic aortic valve insufficiency GOLDSTEIN (dyspnea on exertion) Other dyspnea and respiratory abnormality documented in this encounter Care Teams Team MemberRelationshipSpecialtyStart DateEnd Santi Malagon MD [address] [facility] [address] [address] PCP - Beuyupc52/4/23documented as of this encounter
== END 2025-02-15 13:40 | disposition home or self-care (01) ==
LOC: PST 13:39
PROVIDERS: PCP Family Medicine; Visit Provider Surgery
DX: Z01.818 Encounter for other preprocedural examination (principal); R19.5 Other fecal abnormalities

== ENCOUNTER 2025-02-23 07:23 | Day surgery (SDC) | payer MEDICARE, OTHER, SELFPAY ==
--- NOTE | 2025-02-23 | OP_ITS ---
OPERATION DATE: 02/23/2025 PREOPERATIVE DIAGNOSIS: Positive fecal occult blood test. POSTOPERATIVE DIAGNOSIS: Mild diverticulosis throughout the colon, fair prep. PROCEDURE: Colonoscopy to cecum. SURGEON: Santy Villagran M.D. ANESTHESIA: Monitored anesthesia care. ESTIMATED BLOOD LOSS: Zero INDICATIONS AND CONSENT: Patient is a 69-year-old female with recent positive fecal occult blood test. Indications, risks, benefits, alternatives of proceeding with colonoscopy were explained extensively to the patient, including the risks of bleeding, colon perforation or anesthetic complications. All of her questions were answered. Informed consent was obtained. PROCEDURE: Patient brought to the operating room, placed in the left lateral decubitus position. Monitored anesthesia care was provided. Rectal exam was performed which showed no masses or blood. The scope was inserted into the anal canal. Under direct visualization was advanced. There was noted to be a fair prep with some solid stool as well as liquid and brown stool throughout the colon. It was partially irrigated clear. Upon withdrawal of the scope, mucosal surfaces were carefully examined. There were no mass lesions or polyps noted. No inflammatory changes or ulcerations. There was mild diverticulosis throughout the colon, including the right colon, without inflammatory changes or scarring. Within the rectum, there was no significant hemorrhoidal disease. The scope was then withdrawn. Patient tolerated procedure well, was sent to recovery room in good condition. patient should not require further colorectal screening. CC: Santi Malagon M.D. REHAN
--- OUTSIDE RECORDS SUMMARY | 2025-02-23 07:26 | XMS_ITS | CCD ---
Author Organization [facility] Care Team Providers Care Printing Pressman Name Role Phone PHYSICIAN, DEFAULT Unavailable Unavailable [...] DR SLAUGHTER Admitting Unavailable HOY ., DR SLAUHGTER Attending Unavailable HOY ., DR SLAUGHTER Consulting Unavailable Sukhjinder Malagon Primary Care Physician Santy TURNER Attending Unavailable Sukhjinder Malagon Referring Unavailable ZAC HOWARD Attending Unavailable Allergies Allergy ClassificationReported Allergen(s)Allergy TypeDate of OnsetReaction(s) Facility (2 sources)VigabatrinDrug Jwkihip78-73-3468BGGNrc [facility] (1 source)aspirin / butalbital / caffeine; Translations: [ASA/butalbital/caffeine][facility]Sal[facility] [place] (3 sources)atorvastatin; Translations: [atorvastatin]Drug Fzktlal29-48-0856Wvqby (finding)[facility] (3 sources)Metoprolol; Translations: [metoprolol]Drug Hnxszmp85-56-4073Ngxtt (finding)[facility] (1 source)UJXICFVBLS-DCWHSRU-TFQTPBZE; Translations: [OWCAVENKTW-ONKBHCR-OSRLIJMA]Propensity to adverse reactions to drug (disorder) 92-83-8366[facility]qqvK[facility] (1 source)NJVTVKV-ZQEVRUKDAL-JSI-CAFF; Translations: [XAYSNTO-TDJVEIZWZN-GLN-CAFF]Propensity to adverse reactions to drug (disorder) 90-40-0168FnvbrlehciKettering Health Repository Medications Current Medications MedicationDrug Class(es)DatesSig (Normalized)Sig (Original)aspirin 81 mg delayed release oral tablet (1 source)Platelet Aggregation Inhibitor, Nonsteroidal Anti-inflammatory Drug Start: 69-26-1471bovi 1 tablet by mouth once dailyaspirin 81 mg Oral EC Tab 81 mg = 1 tab(s), Oral, Daily, Refills(s) 0 Start Date: 01/05/25 Status: Ordered Medication Dispense Status: Completed Total Allowed Fills: 1 Fills Dispensed: 0 24 hr buPROPion hydrochloride 300 mg extended release oral tablet (1 source)AminoketoneStart: 18-91-1504ztkt 1 tablet by mouth once dailybuPROPion 300 mg/24 hours ER Tab 300 mg = 1 tab(s), Oral, Daily, Refills(s) 0 Start Date: 01/05/25 Status: Ordered Medication Dispense Status: Completed Total Allowed Fills: 1 Fills Dispensed: 0Calcium Citrate / Vitamin D (1 source)Start: 85-69-9352dvqbaxm-vitamin D Refill(s) 0 Start Date: 01/05/25 Status: Ordered Medication Dispense Status: Completed Total Allowed Fills: 1 Fills Dispensed: 0carvedilol 3.125 mg oral tablet (1 source)alpha-Adrenergic Shaye, beta-Adrenergic BlockerStart: 10-01-4739gsrb 1 tablet by mouth twice dailycarvedilol 3.125 mg Tab 3.125 mg = 1 tab(s), Oral, BID, Refills(s) 0 Start Date: 01/05/25 Status: Ordered Medication Dispense Status: Completed Total Allowed Fills: 1 Fills Dispensed: 0diclofenac sodium 75 mg delayed release oral tablet (1 source)Nonsteroidal Anti-inflammatory DrugStart: 06-19-4047jcbg 1 tablet by mouth twice dailydiclofenac sodium 75 mg Oral EC Tab 75 mg = 1 tab(s), Oral, BID, Refills(s) 0 Start Date: 01/05/25 Status: Ordered Medication Dispense Status: Completed Total Allowed Fills: 1 Fills Dispensed: 0ferrous sulfate 325 mg oral tablet (1 source)Start: 96-99-3354anrn 1 tablet by mouth twice dailyferrous sulfate 325 mg Tab 325 mg = 1 tab(s), Oral, BID, Refills(s) 0 Start Date: 01/05/25 Status: Ordered Medication Dispense Status: Completed Total Allowed Fills: 1 Fills Dispensed: 0rosuvastatin calcium 10 mg oral tablet (1 source)HMG-CoA Reductase InhibitorStart: 29-58-8193rjoj 1 tablet by mouth once dailyCrestor 10 mg Tab 10 mg = 1 tab(s), Oral, Daily, Refills(s) 0 Start Date: 01/05/25 Status: Ordered Medication Dispense Status: Completed Total Allowed Fills: 1 Fills Dispensed: 0Vitamin B-12 5000 mcg sublingual tablet (1 source)Start: 99-75-4399mauk 1 tablet under the tongue once dailyVitamin B-12 5000 mcg sublingual tablet 5,000 mcg = 1 tab(s), SubLingual, Daily, Refills(s) 0 StartDate: 01/25/25 Status: Ordered Medication Dispense Status: Completed Total Allowed Fills: 1 Fills Dispensed: 0Vitamin D2 2000 intl units oral capsule (1 source)Start: 29-24-5784rvbb 1 capsule by mouth once dailyVitamin D2 2000 intl units oral capsule 50 mcg = 1 cap(s), Oral, Daily, cap(s), Refills(s) 0 Start Date: 01/05/25 Status: Ordered Medication Dispense Status: Completed Total Allowed Fills: 1 Fills Dispensed: 0 Problems Active Problems Problem ClassificationProblemDateDocumented DateEpisodic/ChronicChronic obstructive pulmonary disease and bronchiectasis (1 source)Pulmonary cgtbeazyj73-37-3829TdxnirjHpcbwmdy atherosclerosis and other heart disease (3 sources)Coronary arteriosclerosis; Translations: [Atherosclerotic heart disease of asa'[place] coronary artery without angina pectoris]Onset: 12-25-2022 91-82-2220DfxdmwgNbngrzxpa of lipid metabolism (5 sources)Hyperlipidemia, unspecified; Translations: [Hyperlipidemia]Onset: 85-69-0646HgrcejdEtodh valve disorders (3 sources)Aortic valve regurgitation; Translations: [Nonrheumatic aortic (valve) insufficiency]Onset: 089751-84-7489NvhjihzIdsuhaixkm disorders (4 sources)Other primary ovarian failure; Translations: [OTHER PRIMARY OVARIAN FAILURE]Onset: 73-23-3018ZupmgriUwdi disorders (1 source)Depressive -50-3952TmsnkueVyztihoaljo deficiencies (1 source)Vitamin D deficiency, unspecified; Translations: [VITAMIN D DEFICIENCY UNSPECIFIED]Onset: 95-68-1461CnmqenlWabqv bone disease and musculoskeletal deformities (1 source)Other specified disorders of bone density and structure, unspecified site; Translations: [OTH D/O BONE DEN STRUCT UNS SITE]Onset: 55-64-9338Apefhwjl Other bone disease and musculoskeletal deformities (1 source)Nrnzanocyn00-98-3912ZlowmnjuDvplz gastrointestinal disorders (1 source)Irritable bowel syndromeOnset: 912127-23-7497DlzglgxWtfox gastrointestinal disorders (1 source)Other fecal abnormalitiesOnset: 49-39-5278HyaddwfhNelwd gastrointestinal disorders (2 sources)Occult blood in luroax77-81-4389UdcnfmsrCeieq lower respiratory disease (2 sources)Other forms of dyspnea; Translations: [Other forms of dyspnea]Onset: 09-27-7805CmacxvvnCqbgo nutritional; endocrine; and metabolic disorders (1 source)Obesity, unspecified; Translations: [OBESITY UNSPECIFIED]Onset: 28-20-4657GpbqgpmIcgjs nutritional; endocrine; and metabolic disorders (1 source)Kbdatwfhpf55-90-3600HiowzvjtDnbvs nutritional; endocrine; and metabolic disorders (1 source)Overweight in adulthood with body mass index of 25 or more but less than 9199-05-1728OrvrujseAheud screening for suspected conditions (not mental disorders or infectious disease) (5 sources)Encounter for screening mammogram for malignant neoplasm of breast; Translations: [Encounter for screening for malignant neoplasm of colon]Onset: 14-83-0840SnmpvecjFgdlgvkn codes; unclassified (1 source)Family history of malignant neoplasm of digestive organs; Translations: [FAM HX MALIG NEOPLASM DIGESTIV ORGN]Onset: 27-91-9757Zwlqzgsq Residual codes; unclassified (1 source)Family history of leukemia; Translations: [FAMILY HISTORY OF LEUKEMIA] Onset: 76-41-8189QfliitxeVndwybof codes; unclassified (1 source)Family history of malignant neoplasm of other organs or systems; Translations: [FAM HX MALIG NEOPLASM OTH ORGN/SYS]Onset: 97-20-5434Wcadncig Spondylosis; intervertebral disc disorders; other back problems (1 source)Cervical bbtkbizneggxg52-29-2912JqwpxnpdRhmrskf disorders (1 source)Edhhjocuzmeqte10-63-3063Fiibxvh Past or Other Problems Problem ClassificationProblemDateDocumented DateEpisodic/ChronicDeficiency and other anemia (1 source)Iron deficiency anemia, unspecified; Translations: [IRON DEFICIENCY ANEMIA UNSPECIFIED]Onset: 39-46-3698ZhiyqjbiRrwiijcj mellitus without complication (1 source)Other abnormal glucose; Translations: [OTHER ABNORMAL GLUCOSE]Onset: 40-54-1445VbzabdgdZdmrb aftercare (1 source)Other skilled nursing (current) drug therapy; Translations: [OT DETENTION CURRENT DRUG THERAPY]Onset: 12-89-3423Vmipoxnz Results Test NameValueInterpretationReference RangeFacilityOffice Visiton 02-02-2025 Follow-up [id number] Johanny Cristina 1955 F Date Provider Department Center 02/02/2025 Kimberli-ZAC HOWARD CARD [facility] Family History Problem Relation Age of Onset Stroke Mother Other Mother Aortic aneurysm Father Hyperlipidemia Brother Aortic aneurysm Brother Family Status - Relation Status Age at Mother Father Brother Level of Service:[address] [place] OFFICE/OUTPATIENT ESTABLISHED MOD MDM 30 [facility]Amb[facility] Summaryon 01-25-2025 Ambulatory Visit SummaryAmbulatory Visit [...] signed up for this yet, please contact [facility] [employer] at [phone] to get signed up today. Language Information Language assistance services are available as needed. [facility] CenterMG MAMM SCREEN 3D NÉSTOR CADon 78-89-5241RF MAMM SCREEN 3D NÉSTOR CADPatient: JOHANNY CRISTINA Exam Date: 05/21/2022 : 1955 Gender:F Ordering : DR SUKHJINDER MALAGON . Admission #: [id number] Family : Order #: [id number] CLICK HERE TO VIEW EXAM RADIOLOGY REPORT [...] leukemia cancer at age 63. LOCATION: [facility] BREAST COMPOSITION: Scattered areas fibroglandular density. FINDINGS: [...] by: Stanislaw Gonzalez MD on 05/21/2022 at 11:36[facility] Medical CenterXR DEXA BONE DENSITYon 71-61-0347EF DEXA BONE DENSITYEXAMINATION: XR DEXA BONE DENSITY, [...] authenticated by: STANISLAW GONZALEZ Date: 2022-02-22 10:20NormalThe [facility] HealthINSULINon 69-31-2453Yprkmak55.7 uIU/mLNormal2.6-24.9The [facility] HealthComment on above:Performed By: #### INSULIN ####[facility] [address] [address]Dr. Lindsay Varela BILIRUBIN CONJUGATED (DIRECT)on 51-25-7120XOYT, CONJUGATED0.1 mg/dLNormal0.0-0.2 The [facility] HealthComment on above:Performed By: #### TSH, CMP, T4, FT3, DBIL, LIPID ####[facility] [address] [place], [place] [address]Dr. Lindsay VarelaCBC AUTO DIFFon 17-79-8353XVSA #0.0 103/ulNormal0.0-0.1[facility] HospitalComment on above:Performed By: #### CBC #### [facility] [address] [place] [address] Dr. Lindsay VarelaBasophils/100 WBC (Bld)0.4 %Normal0.2-2.0[facility] Comment on above:Performed By: #### CBC #### [facility] [address] [address] [address] Lindsay Knutson #0.1 103/ulNormal0.0-0.7The [facility] HealthComment on above: Performed By: #### CBC #### [facility] [address] [place] [address] Dr. Lindsay Burgessosinophils/100 WBC (Bld)2.3 %Normal0.9-7.0[facility] Comment on above:Performed By: #### CBC #### [facility] [address] [address] [address] Yilan ChangErythrocyte distribution width (RBC) [Ratio]12.2 %Pmgxke31.0-15.0 The [facility] HealthComment on above:Performed By: #### CBC #### [facility] [address] [place] [address] Dr. Lindsay VarelaHematocrit (Bld) [Volume fraction]41.9 %Fqtozl41.0-48.0The [facility] HealthComment on above:Performed By: #### CBC #### [facility] [address] [place] [address] Dr. Lindsay VarelaHemoglobin (Bld) [Mass/Vol]13.9 g/bDGjvgsu95.0-16.0The [facility] HealthComment on above:Performed By: #### CBC #### [facility] [address] [place] [address] Dr. Lindsay Blanco #0.01 10e3/ulNormal0.00-0.03The [facility] HealthComment on above:Performed By: #### CBC #### [facility] [address] [place] [address] Dr. Lindsay Blanco %0.2 %Normal0.0-0.5The [facility] HealthComment on above: Performed By: #### CBC #### [facility] [address] [place] [address] Dr. Lindsay Richardson #1.4 103/ulNormal1.2-3.8The [facility] HealthComment on above:Performed By: #### CBC #### [facility] [address] [place] [address] Dr. Lindsay Arroyomphocytes/100 WBC (Bld)29.2 %Avezhx16.5-60.0The [facility] HealthComment on above:Performed By: #### CBC #### [facility] [address] [place] [address] Dr. Lindsay OsmanUAL DIFF REQNONormalThe [facility] HealthComment on above: Performed By: #### CBC #### [facility] [address] [place] [address] Dr. Lindsay Mckeon (RBC) [Entitic mass]29.4 ldPfxvov05.7-34.0The [facility] HealthComment on above:Performed By: #### CBC #### [facility] [address] [place] [address] Dr. Lindsay Munoz (RBC) [Mass/Vol]33.2 g/mRPbgcuy95.9-35.2The [facility] HealthComment on above:Performed By: #### CBC #### [facility] [address] [place] [address] Dr. Lindsay Munoz (RBC) [Entitic vol]88.6 bHJpojyc09.0-99.0The [facility] HealthComment on above:Performed By: #### CBC #### [facility] [address] [place] [address] Dr. Lindsay Manzano #0.5 103/ulNormal0.3-0.8The [facility] HealthComment on above:Performed By: #### CBC #### [facility] [address] [place] [address] Dr. Lindsay Kowalskiocytes/100 WBC (Bld)9.5 %Normal1.7-12.0[facility] Comment on above:Performed By: #### CBC #### [facility] [address] [place] [address] Dr. Lindsay Mcmahon #2.8 103/ulNormal1.4-6.5The [facility] HealthComment on above:Performed By: #### CBC #### [facility] [address] [place] [address] Dr. Lindsay Walshutrophils/100 WBC (Bld)58.4 %Fkvsrv51.0-75.0The [facility] HealthComment on above:Performed By: #### CBC #### [facility] [address] [place] [address] Dr. Lindsay Mittallet mean volume (Bld) [Entitic vol]9.7 fLNormal9.5-13.5The [facility] HealthComment on above:Performed By: #### CBC #### [facility] [address] [address] [address] Lindsay VarelaPLT181 103/isOshiwd119-312Ajo Madison HealthComment on above: Performed By: #### CBC #### [facility] [address] [address] [address] Lindsay VarelaRBC4.73 106/ulNormal4.20-5.40The [facility] HealthComment on above:Performed By: #### CBC #### [facility] [address] [address] [address] Lindsay VarelaWBC4.8 103/ulNormal4.0-11.0The [facility] HealthComment on above: Performed By: #### CBC #### [facility] [address] [place] [address] Dr. Lindsay VarelaFREE T3on 57-06-0524OWCB T32.78 pg/mlLNormal2.18-3.98The [facility] HealthComment on above:Performed By: #### TSH, CMP, T4, FT3, DBIL, LIPID #### [facility] [address] [address] [address] Lindsay VarelaGLYCOHEMOGLOBIN A1Con 70-08-8532YPX RECOMMENDATIONSEE BELOWNormal [facility]Comasc[facility] on above:Result Comment: ADA RECOMMENDED LIMIT 4.0 - 6.0 ADA THERAPEUTIC TARGET < 7.0 ACTION SUGGESTED > 7.0Performed By: #### A1C ####[facility] [address] [address]DrMike VarelaGlucose [Mass/Vol]105 mg/dLNormalThe [facility] HealthComascension stand[facility] hospital on above:Performed By: #### A1C ####[facility] [address] [place], [place] [address]Dr.Yilan VarelaHbA1c (Bld) [Mass fraction]5.3 %Normal 4.5-6.2The [facility] on above:Performed By: #### A1C ####[facility] [address] [place], [place] [address]Dr.Yilan Gupta 20-71-4904Sxid [Mass/Vol]71.0 ug/sUCtngom05.0-170.0The [facility] HealthComment on above:Performed By: #### VITAD, IRON #### [facility] [address] [place] [address] Dr. Lindsay Fischer PROFILEon 26-44-3203KTUU-HDL RATIO NORMSEE BELOWSycamore Medical CenterComment on above:Result Comment: 3.3 - 4.4 LOW RISK 4.4 - 7.1 AVERAGE RISK 7.1 - 11.0 MODERATE RISK >11.0 HIGH RISKPerformed By: #### TSH, CMP, T4, FT3, DBIL, LIPID #### [facility] [address] [place] [address] Dr. Lindsay Guzmánesterol [Mass/Vol]141 mg/dLNormal<=200[facility] Comment on above:Performed By: #### TSH, CMP, T4, FT3, DBIL, LIPID #### [facility] [address] [place] [address] Dr. Lindsay Crowol in HDL [Mass/Vol]44 mg/hVNkuvxt23-04Ncy [facility] HealthComment on above:Performed By: #### TSH, CMP, T4, FT3, DBIL, LIPID #### [facility] [address] [place] [address] Dr. Lindsay Lira in LDL [Mass/Vol]77.0 mg/dLNoProMedica Bay Park HospitalComment on above:Performed By: #### TSH, CMP, T4, FT3, DBIL, LIPID #### [facility] [address] [place] [address] Dr. Lindsay Lira.total/Cholesterol in HDL [Mass ratio]3.2 {ratio} NormalMercer County Community Hospital on above:Performed By: #### TSH, CMP, T4, FT3, DBIL, LIPID #### [facility] [address] [place] [address] Dr. Lindsay Hoffmann NORMAL> or = 60 mg/dl - LOW CARDIOVASCULAR RISK <40 mg/dl - HIGH CARDIOVASCULAR RISKSycamore Medical CenterComment on above:Performed By: #### TSH, CMP, T4, FT3, DBIL, LIPID #### [facility] [address] [address] [address] Lindsay Gloria CALC NORMALSEE BELOWSycamore Medical CenterComment on above:Result Comment: <100 mg/dl OPTIMAL 100 - 129 mg/dl NEAR OR ABOVE OPTIMAL 130 - 159 mg/dl BORDERLINE HIGH 160 - 189 mg/dl HIGH >190 mg/dl VERY HIGH Performed By: #### TSH, CMP, T4, FT3, DBIL, LIPID #### [facility] [address] [address] [address] Lindsay VarelaTriglyceride [Mass/Vol]100 mg/dLNormal<=150[facility] Comment on above:Performed By: #### TSH, CMP, T4, FT3, DBIL, LIPID #### [facility] [address] [place] [address] Dr. Lindsay KellyLDL CALC20.0 mg/dLNoProMedica Bay Park HospitalComment on above: Performed By: #### TSH, CMP, T4, FT3, DBIL, LIPID #### [facility] [address] [place] [address] Dr. Lindsay Ellison 14(COMP METB)on 43-61-7004Joyvwgl [Mass/Vol]3.8 g/dLNormal 3.4-5.0The [facility] HealthComment on above:Performed By: #### TSH, CMP, T4, FT3, DBIL, LIPID #### [facility] [address] [place] [address] Dr. Lindsay VarelaAlbumin/Globulin [Mass ratio]1.1 {ratio}NormalThe [facility] HealthComment on above:Performed By: #### TSH, CMP, T4, FT3, DBIL, LIPID #### [facility] [address] [place] [address] Dr. Lindsay Shields [Catalytic activity/Vol]107 U/CAvwmcw07-080Sjr [facility] HealthComment on above:Performed By: #### TSH, CMP, T4, FT3, DBIL, LIPID #### [facility] [address] [address] [address] Lindsay Wood [Catalytic activity/Vol]19 U/DSbsmka87-94GigKettering Memorial HospitalComment on above:Performed By: #### TSH, CMP, T4, FT3, DBIL, LIPID #### [facility] [address] [address] [address] Lindsay Palacios gap [Moles/Vol]10.5 mmol/LNormalKettering Memorial Hospital Comment on above:Performed By: #### TSH, CMP, T4, FT3, DBIL, LIPID #### [facility] [address] [place] [address] Dr. Lindsay Brian [Catalytic activity/Vol]16 U/NYsvjkl71-24GedKettering Memorial HospitalComment on above:Performed By: #### TSH, CMP, T4, FT3, DBIL, LIPID #### [facility] [address] [place] [address] Dr. Lindsay VarelaBilirubin [Mass/Vol]0.5 mg/dLNormal0.2-1.0[facility] Comment on above:Performed By: #### TSH, CMP, T4, FT3, DBIL, LIPID #### [facility] [address] [place] [address] Dr. Lindsay VarelaCalcium [Mass/Vol]9.2 mg/dLNormal8.5-10.1[facility] Comment on above:Performed By: #### TSH, CMP, T4, FT3, DBIL, LIPID #### [facility] [address] [place] [address] Dr. Lindsay VarelaChloride [Moles/Vol]102 mmol/NHsamrn13-650CtaKettering Memorial Hospital Comment on above:Performed By: #### TSH, CMP, T4, FT3, DBIL, LIPID #### [facility] [address] [place] [address] Dr. Lindsay VarelaCO2 [Moles/Vol]29.9 mmol/JDtrzlt31.0-32.0[facility] Comment on above:Performed By: #### TSH, CMP, T4, FT3, DBIL, LIPID #### [facility] [address] [place] [address] Dr. Lindsay VarelaCreatinine [Mass/Vol]0.92 mg/dLNormal0.55-1.02[facility] HospitalComment on above:Performed By: #### TSH, CMP, T4, FT3, DBIL, LIPID #### [facility] [address] [place] [address] Dr. Lindsay BurgessGFR-AF VINCENTIAN>60Normal>=60The [facility] HealthComment on above:Performed By: #### TSH, CMP, T4, FT3, DBIL, LIPID #### [facility] [address] [place] [address] Dr. Lindsay BurgessGFR-NON AF VINCENTIAN>60Normal>=60The [facility] HealthComment on above:Performed By: #### TSH, CMP, T4, FT3, DBIL, LIPID #### [facility] [address] [place] [address] Dr. Lindsay VarelaGlobulin (S) [Mass/Vol]3.6 g/dLNormalThe [facility] HealthComment on above:Performed By: #### TSH, CMP, T4, FT3, DBIL, LIPID #### [facility] [address] [place] [address] Dr. Lindsay VarelaGlucose [Mass/Vol]100 mg/cCSpuvdv95-328OraKettering Memorial Hospital Comment on above:Performed By: #### TSH, CMP, T4, FT3, DBIL, LIPID #### [facility] [address] [place] [address] Dr. Lindsay VarelaPotassium [Moles/Vol]4.4 mmol/LNormal3.5-5.1[facility] Comment on above:Performed By: #### TSH, CMP, T4, FT3, DBIL, LIPID #### [facility] [address] [place] [address] Dr. Lindsay VarelaProtein [Mass/Vol]7.4 g/dLNormal6.4-8.2[facility] Comment on above:Performed By: #### TSH, CMP, T4, FT3, DBIL, LIPID #### [facility] [address] [place] [address] Dr. Lindsay Grimaldodium [Moles/Vol]138 mmol/QEzxguy695-200Ucl [facility] Comment on above:Performed By: #### TSH, CMP, T4, FT3, DBIL, LIPID #### [facility] [address] [place] [address] Dr. Lindsay VarelaUrea nitrogen [Mass/Vol]18.0 mg/dLNormal7.0-18.0The [facility] HealthComment on above:Performed By: #### TSH, CMP, T4, FT3, DBIL, LIPID #### [facility] [address] [place] [address] Dr. Lindsay VarelaUrea nitrogen/Creatinine [Mass ratio]19.6 mg/mgNormalThe [facility] HealthComment on above:Performed By: #### TSH, CMP, T4, FT3, DBIL, LIPID #### [facility] [address] [place] [address] Dr. Lindsay VarelaT4on 81-21-3480R4 [Mass/Vol]9.00 ug/dLNormal4.80-13.90The [facility] HealthComment on above:Performed By: #### TSH, CMP, T4, FT3, DBIL, LIPID #### [facility] [address] [place] [address] Dr. Lindsay Allison 25-26-8019NHZ0.036 uIU/mLNormal0.358-3.740[facility] HospitalComment on above:Performed By: #### TSH, CMP, T4, FT3, DBIL, LIPID #### [facility] [address] [place] [address] Dr. Lindsay VarelaVITAMIN D 25 OHon 17-25-7465XMH D 25-OH66.4 ng/mLNormalThe [facility] HealthComment on above:Performed By: #### VITAD, IRON #### [facility] [address] [address] [address] Lindsay De La Torre [facility] CenterComment on above: Result Comment: <20 ng/mL Vit D deficient 20 - <30 ng/mL Vit D insufficient 30 - 100 ng/mL Vit D sufficient >100 ng/mL Potential ToxicityPerformed By: #### VITAD, IRON #### [facility] [address] [address] [address] Lindsay Varela Encounters Encounter DateEncounter TypeCare ProviderFacilityStart: 02-02-2025 End: 55-28-0560uacwfwjwgkEPYE [facility] Hospitaltart: 01-25-2025 End: 25-11-2618tpagpifdaxDgeyuiv R NILLFacility:[facility]tart: 01-25-2025 End: 48-51-1330Rrsfdbe encounter procedureMichael R NILL [phone]-ImlozUniversity Hospitals [facility] [place] Start: 42-07-0013jysybbishxDtxzsiz NILLFacility:[facility] Hospitaltart: 05-21-2022 End: 13-20-2873dyytxzjvseDH SUKHJINDER HOY .Facility:Q7Vuooc: 02-22-2022 End: 97-87-6443soupozmjwvYH SUKHJINDER HOY .Facility:H2Dauvv: 02-12-2022 End: 51-54-9540qaumpfblwsME SUKHJINDER HOY .Facility:Z3Kvfsc: 02-09-2018 End: 19-27-8723Rnkyxtl encounter procedureDEFAULT PHYSICIANFacility:[facility] Procedures DateProcedureProcedure DetailPerforming ClinicianStart: 38-93-2618Uzcrmtbknmj Santy NILL Abdominal hysterectomyMichael NILL AbdominoplastyMichael NILL Repair of joint of left hipMichael NILL Payers DatePayer CategoryPayerPolicy [id number] 1962Unknown [id number] [id number] [id number] Social History DateTypeDetailFacilityStart: 84-91-4603Xbcdwtm smoking statusEx-smoker (finding) [facility] HospitalTobacco smoking statusNever [facility] Hospitalexual OrientationFishParkview [facility] [place] [facility]: [phone] (finding)[facility] Progress note 02-02-2025 Note Date & [id number] [facility] Chief Complaint: [...] Hyperlipidemia Brother Aortic aneurysm Brother Allergies Atorvastatin, Vvllwlafpv-ycxvgeh-vagntraf, Mychgsi-ddsokuiadv-kvk-caff, and Metoprolol Medications Current Outpatient Medications: ascorbic [...] as assessed by fractional flow reserve. 2. Xwlu-jj-qadbonsa disease of the left anterior descending and [...] septal motion likely rel (more content not included)...[facility] Clinical Note 01-25-2025 Note Date & [id number] NoteGeneral Surgery Office/Clinic Note Chief Complaint consultation [...] disease: Mother. Diabetes melli (more content not included)...[facility]:Result Comment: Electronically Signed By: YUE HAWTHORNE, Santy Bautista\Date and Time Signed: 01/25/25 13:36 EST Hospital course Narrative Note Date & TypeNoteFacilityHospital course Narrative No data available for this section [facility] [place] [facility] Discharge instructions Note Date & TypeNoteFacilityHospital Discharge instructions No data available for this section [facility] [place] Progress note Note Date & TypeNoteFacilityProgress note No data available for this section [facility] [place] Summary Purpose [...] and content) DATE CREATED AUTHOR 03/02/2018 [facility] DATE CREATED AUTHOR AUTHOR'S ORGANIZ ATION 05/28/2022 [facility] DATE CREATED AUTHOR AUTHOR'S ORGANIZ ATION 01/27/2025 [facility] DATE CREATED AUTHOR AUTHOR'S ORGANIZ ATION 02/04/2025 [facility] Patient Care team informatio n (unrecognized section and content) Personnel Name: Sukhjinder Malagon MD Address: [address] [place] [address] Telecom: FOR RECORDS PERTAINING TO PATIENTS WHO [...] BE BASED ON THE PRIMARY CLINICAL RECORDS. [facility] [email or web address] [facility] provides no warranty or guarantee of the accuracy or completeness of information in this document.
--- OUTSIDE RECORDS SUMMARY | 2025-02-23 07:27 | XMS_ITS | Encounter Summary ---
Author Organization The [facility] Address [address] [place] [address] Care Team Providers Care Pretzel Packer Name Role Phone Santi Malagon MD Primary Care Provider [phone] Encounter Details DateTypeDepartmentCare Team (Latest Contact Info)Nqazrgviazo35/19/2025Orders Only [facility] [address] [place] [address] Provider, MD Bharathi [address] [place], [place] [id number] Nonrheumatic aortic valve insufficiency; GOLDSTEIN (dyspnea on [...] Assigned at BirthFemale 12/15/2024 10:57 AM EDTLegal XxyZpucdk36/29/2022 9:02 PM EDTGender Identity Yyeuwr5312/15/2024 10:57 AM EDTSexual OrientationHeterosexual or Straight 12/15/2024 [...] LateralityModalityUltrasound Narrative Authorizing ProviderResult TypeResult StatusEhab [facility] ECHO PROCEDURES Final Result documented in this encounter Visit Diagnoses Diagnosis Nonrheumatic aortic valve insufficiency GOLDSTEIN (dyspnea on exertion) Other dyspnea and respiratory abnormality documented in this encounter Care Teams Team MemberRelationshipSpecialtyStart DateEnd Santi Malagon MD [address] [facility] [address] [address] PCP - Tdnlfdk60/4/23documented as of this encounter"
--- OUTSIDE RECORDS SUMMARY | 2025-02-23 07:27 | XMS_ITS | Clinical Summary ---
Author Organization [facility] Address [address] [place] [address] Care Team Providers Care Fruit Farmer Name Role Phone Santi Malagon MD Primary Care Provider [phone] Allergies Active AllergyReactionsCriticalityNoted DateCommentsAtorvastatinSwelling 08/16/20159668Hhbvyihfwe-Ryrlgfy-Mtzwbmne33/17/7826Aeaprpv-Aigpfafpkw-Gii-Caff 08/23/2014MetoprololDizziness,Qaavjbpc71/25/2016 Medications MedicationSigDispense QuantityRefillsLast FilledStart DateEnd DateStatus aspirin [...] type, unspecified whether angina present, unspecified whether lumbee or transplanted heartTake 1 tablet (10 mg) [...] ctive Active Problems ProblemNoted DateDiagnosed DateBMI 29.0-29.9,adult01/31/2025ervical dmfslrygufryb04/10/2025ontact bkdseudkay63/10/5045Djkyqfltzg22/10/2025 Emphysema, kxinepmqftc34/10/0624Zrlifqtyfnvaic46/10/1572Ssigjsdihhb90/10/2025 Vjytzla5001/31/2025Occult blood in ptjvgd8104/02/20249866Gwkcviaxcv72/10/2025Overweight 01/31/2025Streptococcal ynckaulmclu76/10/2025Weight gain01/31/2025llergic aqvhqvpw63ortic valve tdfwovmgfesmk04 Cardiovascular stress test wzccknuc10hest pain12/25/2022 12/25/2022oronary zclzomlrgivjusvm45yspnea12/25/2022 12/25/20224519Mqxxn49Irritable bowel xtidymiy50 Rcfoifrvnvdmheb47Elective procedure for unacceptable cosmetic zgdnxqysam28Other plastic surgery for unacceptable cosmetic rykennibvs40 Encounters DateTypeDepartmentCare HhklSyhtunjkyra54/19/2025Orders Only [facility] [address] [place] [address] Bharathi [place] MD Nonrheumatic aortic valve insufficiency; GOLDSTEIN (dyspnea on exertion)02/02/2025 11:30 AM ESTOffice Visit [facility] [address] [place] [address] Jacquelyn Knight MD Nonrheumatic aortic [...] file05/15/2023CommentsUnknownSex and Gender InformationValueDate RecordedSex Assigned at EwdgyPpjgso13/24/2025 10:57 AM EDT Legal ZruMbeisf83/29/2022 9:02 PM EDTGender UmgteapmTqduoz34/24/2025 10:57 AM EDTSexual OrientationHeterosexual or Ekexvqhf91/24/2025 10:57 AM EDT Last Filed Vital Signs Vital SignReadingTime TakenCommentsBlood Xasifpcj136/6402/02/2025 11:52 AM EST Tpium812802/02/2025 11:52 AM ESTTemperature--Respiratory Rate--Oxygen Saturation 96%02/02/2025 11:52 AM ESTInhaled Oxygen Concentration--Vxixng00.1 kg (181 lb) 02/02/2025 11:52 AM FPJElhjef918.6 cm (5' 6 )02/02/2025 11:52 AM ESTBody Mass Index29. 11:52 AM EST Plan of Treatment Health MaintenanceDue DateLast DoneCommentsCT Jldwhwtltfpq68/12/1954FIT-DNA 1953FIT1953FOBT1953Medicare Annual Wellness (AWV)1955 Fwyrjtngivbdg10/12/1954Depression Tasihciuv18/12/2683Blehmurhz70/12/1994Fall Risk Rgsskrjze82/12/2019COVID-19 Vaccine ( season)2024 Nxpzgmfumsc51/04/50314803/27/2015Colorectal Cancer Fxuhnumrp66/04/2026dult Ahxagcc64Zoster AyajxjmtWcrqycioj94/28/2018, 10/10/2017 Influenza MdeylfzPuzowpdgk73/30/2025, 12/26/2023, 01/05/2022, Additional history existsPneumococcal Vaccine: 50+ UiowwPccurptkw51/30/2025, 10/12/2017, 12/24/2015 HIB VaccinesAged OutNo longer eligible [...] Narrative Authorizing ProviderResult TypeResult StatusEhab [facility] MDCV ECHO PROCEDURES Final Result from Last 3 Months Insurance Care Teams Team MemberRelationshipSpecialtyStart Date Santi Malagon MD [address] [facility] [place] [address] PCP - Hzwhefr40/4/23
--- OUTSIDE RECORDS SUMMARY | 2025-02-23 07:27 | XMS_ITS | Clinical Summary ---
Author Organization [facility] Address [address] [place] [address] Care Team Providers Care Fellmongering Machine Operator Name Role Phone Unavailable Primary Care Provider Unavailabl e Social History Tobacco UseTypesPacks/DayYears UsedDateSmoking Tobacco: Never Assessed CommentsUnknownSex and Gender InformationValueDate RecordedSex Assigned at Not on fileLegal TfrEsccce37/15/2023 6:49 PM EDTGender IdentityNot on fileSexual OrientationNot on file Plan of Treatment Not on file
--- OUTSIDE RECORDS SUMMARY | 2025-02-23 07:27 | XMS_ITS | Clinical Summary ---
Author Organization [facility] Address [address] [facility] [facility], [address] [place] [address] Care Team Providers Care Technology Development Intern Name Role Phone Santi Malagon MD Primary Care Provider [phone] Allergies Active AllergyReactionsCriticalityNoted JplqHqwvqckjUrxiklerca-Qeq-Sawb-Codeine 08/23/20146256AlbnlqxfstytGhairnpt20/25/1917JfsiyidpndOkzyrxlc80/25/2016 Medications MedicationSigDispense QuantityRefillsLast FilledStart DateEnd DateStatus Citalopram Hydrobromide (CELEXA PO) Take by mouthActive DICLOFENAC PO Take by mouthActive aspirin 81 MG tablet Take 81 mg by mouth dailyActive FLUARIX QUADRIVALENT 0.5 ML injection inject 0.5 milliliter ujcwwhyexzclibn429/02/2016Active PREVNAR 13 SUSP inj inject 0.5 milliliter wonjedczzhcyfku420/02/2016Active Active Problems ProblemNoted DateDiagnosed DateElective procedure for unacceptable cosmetic kdukaedtsf55/01/2016Other plastic surgery for unacceptable cosmetic appearance 04/05/2015 Social History Tobacco UseTypesPacks/DayYears UsedDateSmoking Tobacco: FormerCigarettes0.820 08/25/1980 - 08/25/2000Alcohol UseStandard Drinks/WeekCommentsYes0 (1 standard drink = 0.6 oz pure alcohol)occasionalCommentsNoSex and Gender InformationValueDate RecordedSex Assigned at BirthNot on fileLegal SexFemale 05/03/2012 6:43 PM ESTGender IdentityNot on fileSexual OrientationNot on file Last Filed Vital Signs Vital SignReadingTime TakenCommentsBlood Ehjtpypk776/7610 1:47 PM EDT Astep970712/27/2015 1:47 PM LPZOxizakbvzeb27.2 ??C (97.2 ??F)03/29/2015 12:37 PM ESTRespiratory Kxff8800 1:47 PM EDTOxygen Bwviylhnrx82%03/29/2015 1:54 PM ESTInhaled Oxygen Concentration--Suiger96.2 kg (190 lb)12/27/2015 1:47 PM EDT patient auipsuIdrhtu951.6 cm (5' 6 )12/27/2015 1:47 PM EDTpatient statedBody Mass Index30.6712/27/2015 1:47 PM EDT Plan of Treatment Not on file Insurance Care Teams Team MemberRelationshipSpecialtyStart DateEnd Santi Malagon MD [address] [place] [address] PCP - General05/18/14
[2025-02-23 07:30] VITALS: BP 106/54; PULSE 67; TEMP 36.3; O2SAT 96; BMI 28.4
[2025-02-23 09:12] VITALS: BP 101/58; PULSE 74; TEMP 36.8; O2SAT 97
[2025-02-23 09:27] VITALS: BP 99/55; PULSE 67; O2SAT 97
[2025-02-23 09:42] VITALS: BP 107/87; PULSE 58; TEMP 36.6; O2SAT 96
--- NOTE | 2025-02-23 09:44 | PC.NURSE ---
REVIEWED DISCHARGE INSTRUCTIONS WITH PATIENT AND SPOUSE. BOTH VERBALIZES UNDERSTANDING
== END 2025-02-23 09:42 | disposition home or self-care (01) ==
PROVIDERS: PCP Family Medicine; Visit Provider Surgery
PROC: (CPT 45378; principal; 2025-02-23 08:30)
DX: R19.5 Other fecal abnormalities (principal); K57.30 Diverticulosis of large intestine without perforation or abscess without bleeding; E78.5 Hyperlipidemia, unspecified; E03.9 Hypothyroidism, unspecified; J43.9 Emphysema, unspecified; I25.10 Atherosclerotic heart disease of native coronary artery without angina pectoris; I35.1 Nonrheumatic aortic (valve) insufficiency; M54.12 Radiculopathy, cervical region; Z90.710 Acquired absence of both cervix and uterus; G47.33 Obstructive sleep apnea (adult) (pediatric); Z87.891 Personal history of nicotine dependence; I10 Essential (primary) hypertension; Z96.642 Presence of left artificial hip joint; F41.9 Anxiety disorder, unspecified; F32.A Depression, unspecified
CPT/HCPCS: 45378; J2371; J2704